=== PATIENT | male | born 1945 | race American Indian/Alaskan Native ===

== ENCOUNTER 2016-12-11 06:46 | Day surgery (SDC) | payer MEDICARE, BC ==
[2016-12-11 07:14] VITALS: BMI 26.6
[2016-12-11 08:10] LABS: CALCIUM 9.7 mg/dl (8.6-10.4)
[2016-12-11] MEDS ORDERED: Lidocaine Hydrochloride 5 ML INJ ONE (08:29)
[2016-12-11] MEDS ORDERED: Propofol 10 mg/ml Inj (20 ML) ONE (08:29)
[2016-12-11] MEDS ORDERED: Lactated Ringer's 500 ML IV SCH (08:30)
[2016-12-11] MEDS ORDERED: Lactated Ringer's 500 ML IV ONE ×2 (08:34)
[2016-12-11 09:09] VITALS: TEMP 98
[2016-12-11 09:16] VITALS: O2SAT 100
[2016-12-11 10:30] VITALS: BP 122/73; PULSE 62; RESP 18
== END 2016-12-11 10:00 | disposition home or self-care (01) ==
LOC: C.ENDO 06:46
PROVIDERS: ATTEND Internal Medicine Gastroenterology
DX: K29.80 Duodenitis without bleeding (principal); R13.10 Dysphagia, unspecified
CPT/HCPCS: 36415; 43239; 80048; 88305; J2704; J3010; J7120

== ENCOUNTER 2017-04-28 14:12 | Inpatient (IN) | payer MEDICARE, BC ==
[2017-04-28 14:12] VITALS: BMI 26.6
[2017-04-28] MEDS ORDERED: Lactated Ringer's 500 ML IV ONE (16:14)
--- NOTE | 2017-04-28 16:17 | C.PDOC ---
History Of Present Illness 71 y/o male presents to ED with complaints of weakness and dizziness. Patient states today he could not get up from bed secondary to feeling weak and dizzy. Patient was seen here 1 week ago for multiple falling episodes and was diagnosed with nose fracture. Patient reports he is not eating much secondary to trouble swallowing for history of dysphagia. As per family member he seems more weak than usual and having trouble ambulating. Time Seen by Provider: 04/28/17 15:57 Chief Complaint (Nursing): Weakness/Neurological Deficit History Per: Patient History/Exam Limitations: no limitations Onset/Duration Of Symptoms: Days Current Symptoms Are (Timing): Still Present Past Medical History Reviewed: Historical Data, Nursing Documentation, Vital Signs Vital Signs: Last Vital Signs Temp 98.2 F 04/28/17 14:51 Pulse 65 04/28/17 17:22 Resp 19 04/28/17 17:22 BP 124/78 04/28/17 17:22 Pulse Ox 100 04/28/17 18:20 - Medical History PMH: Anxiety (NO MED), Cardia Arrhythmia (BRADYCARDIA), Depression (NO MED), HTN , Hypercholesterolemia, Chronic Kidney Disease Surgical History: No Surg Hx - [facility] Procedures DIALYSIS ARTERIOVENOSTOM (11/03/13) HEMODIALYSIS (11/03/13) VENOUS CATHETERIZATION FOR RENAL DIALYSIS (11/03/13) Family History: States: No Known Family Hx - Social History Hx Tobacco Use: No Hx Alcohol Use: No Hx Substance Use: No - Immunization History Hx Tetanus Toxoid Vaccination: Yes Hx Influenza Vaccination: Yes Hx Pneumococcal Vaccination: No Review Of Systems Constitutional: Negative for: Fever, Chills Cardiovascular: Negative for: Chest Pain Respiratory: Negative for: Shortness of Breath Gastrointestinal: Negative for: Nausea, Vomiting Skin: Negative for: Rash Neurological: Positive for: Weakness, Dizziness. Negative for: Numbness, Headache Physical Exam - Physical Exam Appears: Non-toxic, No Acute Distress Skin: Warm, Dry, No Rash Head: Atraumatic, Normacephalic Eye(s): bilateral: Normal Inspection, EOMI Nose: Normal Oral Mucosa: Dry Neck: No Midline Cervical Tenderness, No Paracervical Tenderness, Supple, Other (minimal swelling to right side of neck) Chest: Symmetrical Cardiovascular: Rhythm Regular Respiratory: Normal Breath Sounds, No Rales, No Rhonchi, No Wheezing Gastrointestinal/Abdominal: Soft, No Tenderness Extremity: No Pedal Edema, Capillary Refill (<2 seconds), No Swelling, Other ( AV fistula to left arm ) Extremity: Bilateral: Normal Color And Temperature, Normal ROM Neurological/Psych: Oriented x3, Normal Speech, Normal Motor, Normal Sensation Gait: With Assistance (Cane) ED Course And Treatment - Laboratory Results Result Diagrams: 04/28/17 16:34 04/28/17 16:34 Lab Interpretation: Abnormal O2 Sat by Pulse Oximetry: 100 (RA) Pulse Ox Interpretation: Normal - CT Scan/US Head w/o contrast Other Rad Studies (CT/US): Read By Radiologist, Radiology Report Reviewed CT/US Interpretation: PROCEDURE: CT HEAD WITHOUT CONTRAST. HISTORY: dizziness. COMPARISON: 04/16/2017. TECHNIQUE: Axial computed tomography images were obtained through the head/brain without intravenous contrast. Radiation dose: Total exam DLP = 1357 mGy-cm. This CT exam was performed using one or more of the following dose reduction techniques: Automated exposure control, adjustment of the mA and/or kV according to patient size, and/ or use of iterative reconstruction technique. FINDINGS: HEMORRHAGE: No intracranial hemorrhage. BRAIN: No mass effect or edema. Chronic microvascular changes are seen. Moderate atrophy. VENTRICLES: Unremarkable. No hydrocephalus. CALVARIUM: Unremarkable. PARANASAL SINUSES: Unremarkable as visualized. No significant inflammatory changes. MASTOID AIR CELLS: Unremarkable as visualized. No inflammatory changes. OTHER FINDINGS: There is heavy vascular calcification of the basilar and carotid arteries. IMPRESSION: No acute findings Medical Decision Making Medical Decision Making: Impression: weakness Prior records reviewed: Patient seen in ED 04/16/17 after fall and had CT showing nasal fracture, no orbital fracture or ICH. Plan:CT head, Blood work, UA, ECG, CXR Progress: Labs consistent with CRF, anemia. CT head shows no acute findings. Patient unable to give urine. Discussed case with attending who recommends obs admission Patient reevaluated and remained unchanged, states he feels well at rest and uneasy when walking. Patient is at risk of falls at home and unsafe for discharge. Contact Dr Guthrie for obs-admission and he agrees. Consults placed for cardiology, neurology and neprho. Patient will need HD tomorrow. Also put for PT eval. Disposition - Disposition Disposition: HOSPITALIZED Disposition Time: 18:00 Condition: STABLE - POA Present On Arrival: None - Clinical Impression Clinical Impression: ESRD (end stage renal disease), Dizziness, Weakness - PA / SUBSTITUTE CROSSING GUARD / Resident Statement MD/DO has reviewed & agrees with the documentation as recorded. - Scribe Statement The provider has reviewed the documentation as recorded by the Viviana Warren All medical record entries made by the Viviana were at my direction and personally dictated by me. I have reviewed the chart and agree that the record accurately reflects my personal performance of the history, physical exam, medical decision making, and the department course for this patient. I have also personally directed, reviewed, and agree with the discharge instructions and disposition. Decision To Admit - Pt Status Changed To: Hospital Disposition Of: Observation - . Bed Request Type: Telemetry Admitting Physician: Kolby Guthrie Patient Diagnosis: ESRD (end stage renal disease), Dizziness, Weakness
[2017-04-28 16:40] LABS: BASO % 0.2 % (0.0-2.0); EOS # 0.1 K/uL (0.0-0.7); EOS % 1.7 % (0.0-4.0); LYMPH # 0.7 K/uL (1.0-4.3); LYMPH % 8.3 % (20.0-40.0); MEAN CORPUSCULAR HEMOGLOBIN 31.2 pg (27.0-31.0); MEAN CORPUSCULAR HGB CONC 33.1 g/dL (33.0-37.0); MEAN PLATELET VOLUME 6.5 fL (7.2-11.7); MONO # 0.7 K/uL (0.0-0.8); MONO % 8.3 % (0.0-10.0); PLATELET COUNT 249 K/uL (130-400); RED CELL DISTRIBUTION WIDTH 14.8 % (11.5-14.5)
[2017-04-28 16:44] LABS: MEAN CELL VOLUME 94.4 fL (80.0-94.0)
[2017-04-28 16:55] LABS: ALB/GLOB RATIO 1.4 (1.0-2.1); BILIRUBIN,TOTAL 0.8 mg/dL (0.2-1.3); CALCIUM 9.2 mg/dl (8.6-10.4); POTASSIUM 4.1 mmol/L (3.6-5.2); TOTAL PROTEIN 7.1 g/dL (6.3-8.3)
--- NOTE | 2017-04-28 16:59 | CT ---
PROCEDURE: CT HEAD WITHOUT CONTRAST. HISTORY: dizziness COMPARISON: 04/16/2017 TECHNIQUE: Axial computed tomography images were obtained through the head/brain without intravenous contrast. Radiation dose: Total exam DLP = 1357 mGy-cm. This CT exam was performed using one or more of the following dose reduction techniques: Automated exposure control, adjustment of the mA and/or kV according to patient size, and/or use of iterative reconstruction technique. FINDINGS: HEMORRHAGE: No intracranial hemorrhage. BRAIN: No mass effect or edema. Chronic microvascular changes are seen. Moderate atrophy VENTRICLES: Unremarkable. No hydrocephalus. CALVARIUM: Unremarkable. PARANASAL SINUSES: Unremarkable as visualized. No significant inflammatory changes. MASTOID AIR CELLS: Unremarkable as visualized. No inflammatory changes. OTHER FINDINGS: There is heavy vascular calcification of the basilar and carotid arteries IMPRESSION: No acute findings
[2017-04-28] MEDS ORDERED: Lactated Ringer's 1,000 ML ONE (17:02)
[2017-04-28 17:32] LABS: EOSINOPHIL 1 % (0-4); NEUTROPHIL 82 % (50-75); TOTAL CELLS COUNTED 100
--- NOTE | 2017-04-29 01:54 | CON ---
NEUROLOGY CONSULTATION REASON FOR CONSULTATION: Dizziness. HISTORY OF PRESENT ILLNESS: The patient is a 71-year-old male who has been asked for evaluation of dizziness and unsteady gait. The dizziness is described as lightheaded feeling. The patient said when this morning when he got up, he was dizzy and he fell down. The patient apparently has been falling at home and also had episode of passing out. The patient was in the hospital a week ago. The patient has been complaining of weakness allover the body. He denies any focal weakness in the arms or legs. REVIEW OF SYSTEMS: Denies any headache, positive for dizziness, positive for difficulty swallowing. Denies any chest pain, shortness of breath, abdominal pain, constipation, diarrhea, dysuria, cough, and sputum production. PAST MEDICAL HISTORY: Includes end-stage renal failure, on hemodialysis. MEDICATIONS: Included Renagel, Proscar, aspirin, cholecalciferol, Imdur. ALLERGIES: NO KNOWN DRUG ALLERGIES. SOCIAL HISTORY: He is an ex-smoker. Denies use of any alcohol or use of illicit drugs. FAMILY HISTORY: Reviewed and noncontributory to the case. PHYSICAL EXAMINATION: GENERAL: The patient is an elderly male sitting, in no acute distress. VITAL SIGNS: Blood pressure is 124/78, heart rate is 65 per minute, breathing at the rate of 16 per minute and temperature is 98.2 degrees Fahrenheit. HEENT: Head is normocephalic and atraumatic. NECK: Supple. There are no carotid bruits. LUNGS: Clear. CARDIOVASCULAR: S1 and S2 audible. No murmurs. ABDOMEN: Soft and nontender. Bowel sounds present. NEUROLOGY EXAMINATION: Mental status: The patient is awake, alert and oriented to time, place and person. Speech is fluent. Naming and repetition are normal. Memory and cognition are intact. Cranial nerve examination: Pupils are 3 mm bilaterally, reactive to light. Visual croft are full. Extraocular movements are intact. There is no facial asymmetry. Palate is upgoing bilaterally and tongue is midline. Motor examination: Tone is normal. Power is 4/5 bilaterally in all extremities. Reflexes are 1+ in upper extremity and absent in lower extremity. Plantars are downgoing bilaterally. Cerebellar examination: [id number] shows no dysmetria. Sensory examination: Decreased vibration sense . Gait is unsteady. LABORATORY DATA: Labs reviewed shows WBC of 8.0, hemoglobin 10.3, hematocrit of 31.0 and platelets of 249. INR is 1.0, sodium is 138, potassium 4.1, chloride 92, carbon dioxide content of 30, BUN of 31, creatinine of 6.3 and glucose of 88. He had a CT scan of the head done, which showed no acute intracranial abnormality. IMPRESSION: 1. Dizziness, possible labyrinthine dysfunction. 2. Gait dysfunction. 3. History of throat cancer. 4. End-stage renal disease, on hemodialysis. RECOMMENDATIONS: 1. The patient to have MRI of the brain without contrast. 2. The patient also to have an electroencephalogram. 3. The patient to have physical therapy for gait imbalance. 4. Please continue other treatment and supportive care. Thank you for the opportunity to participate in the care of this patient. Crispin Garzon MD
--- NOTE | 2017-04-29 08:44 | CP.PCM.HP ---
History of Present Illness - History of Present Illness History of Present Illness: 71 y/o male with HTN, ESRD on HD. Patient has been weak and had pass out at least 2. He was seen in ER and had sustain a Fx nose. Patient still weak and very unsteady. Patient has poor recall and denies any sudden one sideded weakness. Present on Admission - Present on Admission Any Indicators Present on Admission: Yes History of DVT/PE: No History of Uncontrolled Diabetes: No Urinary Catheter: No Decubitus Ulcer Present: No Review of Systems - Review of Systems Systems not reviewed;Unavailable: Dementia - Constitutional Constitutional: Anorexia. absent: Night Sweats - EENT Eyes: absent: Blurred Vision, Change in Vision, Itchy Eyes, Loss of Peripheral Vision Ears: Decreased Hearing, Disequilibrium, Dizziness. absent: Ear Discharge, Ear Pain Nose/Mouth/Throat: Dysphagia. absent: Nasal Congestion, Post Nasal Drip, Hoarsness - Cardiovascular Cardiovascular: absent: Chest Pain, Diaphoresis, Leg Edema, Radiating Pain - Respiratory Respiratory: Cough. absent: Hemoptysis, Dyspnea on Exertion, Snoring, Chest Congestion, Excessive Mucous Production - Gastrointestinal Gastrointestinal: absent: Abdominal Pain, Bloating, Diarrhea, Loose Stools, Nausea, Temesmus - Genitourinary Genitourinary: absent: Difficulty Urinating, Dysuria, Hematuria, Urinary Hesitance - Musculoskeletal Musculoskeletal: absent: Abnormal Gait, Back Pain, Joint Swelling, Muscle Weakness, Myalgias - Integumentary Integumentary: absent: Hirsutism, Rash, Swelling - Neurological Neurological: Abnormal Gait. absent: Confusion, Dizziness, Loss of Vision, Radicular Pain - Psychiatric Psychiatric: absent: Behavioral Changes, Confusion, Hopelessness, Panic Attacks Past Patient History - Past Medical History & Family History Past Medical History?: Yes - Past Social History Smoking Status: Former Smoker - CARDIAC Hx Cardia Arrhythmia: Yes (BRADYCARDIA) Hx Hypercholesterolemia: Yes Hx Hypertension: Yes - PULMONARY Hx Respiratory Disorders: No - NEUROLOGICAL Hx Neurological Disorder: No - HEENT Hx HEENT Problems: Yes Other/Comment: DIFFICULTY OF SWALLOWING - RENAL Hx Chronic Kidney Disease: Yes - ENDOCRINE/METABOLIC Hx Endocrine Disorders: No - HEMATOLOGICAL/ONCOLOGICAL Hx Blood Disorders: Yes Hx Cancer: Yes (THROAT SURGERY RADIATION) - INTEGUMENTARY Hx Dermatological Problems: No - MUSCULOSKELETAL/RHEUMATOLOGICAL Hx Musculoskeletal Disorders: No Hx Falls: Yes (numerous falls) - GASTROINTESTINAL Hx Gastrointestinal Disorders: No - GENITOURINARY/GYNECOLOGICAL Hx Genitourinary Disorders: No - PSYCHIATRIC Hx Anxiety: Yes (NO MED) Hx Depression: Yes (NO MED) Hx Substance Use: No - SURGICAL HISTORY Hx Arteriovenous Shunt: Yes Hx Herniorrhaphy: Yes Other/Comment: RT LYMPH NODE SURGERY - ANESTHESIA Hx Anesthesia: Yes Hx Anesthesia Reactions: No Hx Malignant Hyperthermia: No Meds Allergies/Adverse Reactions: Allergies Allergy/AdvReac Type Severity Reaction Status Date / Time No Known Allergies Allergy Verified 04/16/17 16:49 Physical Exam - Constitutional Appears: No Acute Distress - Head Exam Head Exam: NORMAL INSPECTION - Eye Exam Eye Exam: Normal appearance - ENT Exam ENT Exam: Mucous Membranes Moist - Neck Exam Neck exam: Positive for: Full Rom. Negative for: Lymphadenopathy, Thyromegaly - Respiratory Exam Respiratory Exam: Decreased Breath Sounds. absent: Rales, Rhonchi, Wheezes - Cardiovascular Exam Cardiovascular Exam: JVD, +S1, +S2, Systolic Murmur. absent: Gallop, REGULAR RHYTHM - GI/Abdominal Exam GI & Abdominal Exam: Soft. absent: Rigid, Tenderness - Extremities Exam Extremities exam: Positive for: full ROM, pedal pulses present ((+) AV shunt on left midarm). Negative for: calf tenderness, joint swelling, pedal edema Results - Vital Signs Recent Vital Signs: Last Vital Signs Temp 97.5 F L 04/29/17 08:14 Pulse 65 04/29/17 08:14 Resp 20 04/29/17 08:14 BP 145/85 04/29/17 08:14 Pulse Ox 97 04/29/17 08:14 - Labs Result Diagrams: 04/28/17 16:34 04/28/17 16:34 Labs: Laboratory Results - last 24 hr 04/28/17 04/28/17 04/28/17 15:51 16:34 16:34 WBC 8.0 RBC 3.29 L Hgb 10.3 L Hct 31.0 L MCV 94.4 H D MCH 31.2 H MCHC 33.1 RDW 14.8 H Plt Count 249 MPV 6.5 L Neut % (Auto) 81.5 H Lymph % (Auto) 8.3 L Ritchie % (Auto) 8.3 Eos % (Auto) 1.7 Baso % (Auto) 0.2 Neut # 6.5 Lymph # 0.7 L Ritchie # 0.7 Eos # 0.1 Baso # 0.0 Neutrophils % (Manual) 82 H Band Neutrophils % 1 Lymphocytes % (Manual) 8 L Monocytes % (Manual) 8 Eosinophils % (Manual) 1 Platelet Estimate Normal Hypochromasia (manual) Slight Poikilocytosis (manual Slight Anisocytosis (manual) Slight PT 10.8 INR 1.0 APTT 31 Sodium Potassium Chloride Carbon Dioxide Anion Gap BUN Creatinine Est GFR ( Amer) Est GFR (Non-Af Amer) POC Glucose (mg/dL) 82 Random Glucose Calcium Total Bilirubin AST ALT Alkaline Phosphatase Troponin I NT-Pro-B Natriuret Pep Total Protein Albumin Globulin Albumin/Globulin Ratio 04/28/17 04/28/17 16:34 19:00 WBC RBC Hgb Hct MCV MCH MCHC RDW Plt Count MPV Neut % (Auto) Lymph % (Auto) Ritchie % (Auto) Eos % (Auto) Baso % (Auto) Neut # Lymph # Ritchie # Eos # Baso # Neutrophils % (Manual) Band Neutrophils % Lymphocytes % (Manual) Monocytes % (Manual) Eosinophils % (Manual) Platelet Estimate Hypochromasia (manual) Poikilocytosis (manual Anisocytosis (manual) PT INR APTT Sodium 133 Potassium 4.1 Chloride 92 L Carbon Dioxide 30 Anion Gap 15 BUN 31 H Creatinine 6.3 H Est GFR ( Amer) 11 Est GFR (Non-Af Amer) 9 POC Glucose (mg/dL) Random Glucose 88 Calcium 9.2 Total Bilirubin 0.8 AST 18 ALT 22 Alkaline Phosphatase 50 Troponin I < 0.0120 NT-Pro-B Natriuret Pep 2110 H Total Protein 7.1 Albumin 4.1 Globulin 3.0 Albumin/Globulin Ratio 1.4 - EKG Data EKG Interpreted by: Myself EKG shows normal: Sinus rhythm Rate: Normal - EKG Data When Compared to Previous EKG: No Significant Change Assessment & Plan - Assessment and Plan (Free Text) Assessment: Syncope w/ Unsteady gait ESRD; Dysphagia For MRI Await Neuro eval & for Cardio eval Supportive care For physical therapy
--- NOTE | 2017-04-29 09:14 | CP.PCM.CON ---
History of Present Illness - History of Present Illness History of Present Illness: I was asked to evaluate patient by Dr Guthrie. Patient is a 71 year old male with PMH HTN, hypercholeterolemia ESRD on HD who presents with fall. Patient has a history of single vessel CAD treated medically, who states he had a fall. he does not remember the exact details of his fall. he denies chest brown or dyspnea. He has had dysphagia, and has poor oral intake. Review of Systems - Constitutional Constitutional: Weakness - EENT Eyes: absent: As Per HPI, Blind Spots, Blurred Vision, Change in Vision, Decreased Night Vision, Diplopia, Discharge, Dry Eye, Exophthalmos, Floaters, Irritation, Itchy Eyes, Loss of Peripheral Vision, Pain, Photophobia, Requires Corrective Lenses, Sees Flashes, Spots in Vision, Tunnel Vision, Other Visual Disturbances, Loss of Vision, Other Ears: absent: As Per HPI, Decreased Hearing, Ear Discharge, Ear Pain, Tinnitus, Abnormal Hearing, Disequilibrium, Dizziness, Other Nose/Mouth/Throat: Dysphagia - Cardiovascular Cardiovascular: absent: As Per HPI, Acrocyanosis, Chest Pain, Chest Pain at Rest , Chest Pain with Activity, Claudication, Diaphoresis, Dyspnea, Dyspnea on Exertion, Edema, Irregular Heart Rhythm, Pain Radiating to Arm/Neck/Jaw, Leg Edema, Leg Ulcers, Lightheadedness, Orthopnea, Palpitations, Paroxysmal Nocturnal Dyspnea, Pedal Edema, Radiating Pain, Rapid Heart Rate, Slow Heart Rate, Syncope, Other - Respiratory Respiratory: absent: As Per HPI, Cough, Dyspnea, Hemoptysis, Dyspnea on Exertion , Wheezing, Snoring, Stridor, Pain on Inspiration, Chest Congestion, Excessive Mucous Production, Change in Mucous Color, Pain with Coughing, Other - Gastrointestinal Gastrointestinal: absent: As Per HPI, Abdominal Pain, Belching, Bloating, Change in Bowel Habits, Change in Stool Character, Coffee Ground Emesis, Constipation, Cramping, Diarrhea, Dyspepsia, Dysphagia, Early Satiety, Excessive Flatus, Fecal Incontinence, Heartburn, Hematemesis, Hematochezia, Loose Stools, Melena, Nausea, Odynophagia, Temesmus, Vomiting, Other - Genitourinary Genitourinary: absent: As Per HPI, Change in Urinary Stream, Difficulty Urinating, Dysuria, Flank Pain, Hematuria, Pyuria, Nocturia, Urinary Incontinence, Urinary Frequency, Urinary Hesitance, Urinary Urgency, Voiding Freq/Small Amts, Freq UTI, Hx Renal/Bladder Calculi, Hx /Renal Surgery, Bladder Distension, Other - Musculoskeletal Musculoskeletal: absent: As Per HPI, Abnormal Gait, Arthralgias, Atrophy, Back Pain, Deformity, Joint Swelling, Limited Range of Motion, Loss of Height, Muscle Cramps, Muscle Weakness, Myalgias, Neck Pain, Numbness, Radiating Pain into Limb, Stiffness, Tingling, Other - Integumentary Integumentary: absent: As Per HPI, Acne, Alopecia, Bleeding Lesions, Change in Hair, Change in Nails, Change in Pigmentation, Changing Lesions, Dry Skin, Erythema, Furuncle, Hirsutism, Lesions, New Lesions, Non-Healing Lesions, Photosensitivity, Pruritus, Rash, Skin Pain, Skin Ulcer, Sores, Striae, Swelling , Unusual Bruising, Wounds, Jaundice, Other - Neurological Neurological: absent: As Per HPI, Abnormal Gait, Abnormal Hearing, Abnormal Movements, Abnormal Speech, Behavioral Changes, Burning Sensations, Confusion, Convulsions, Disequilibrium, Dizziness, Numbness, Focal Weakness, Frequent Falls , Headaches, Lack of Coordination, Loss of Vision, Memory Loss, Paresthesias, Radicular Pain, Restless Legs, Sensory Deficit, Syncope, Tingling, Tremor, Vertigo, Weakness, Other Visual Disturbances, Other - Psychiatric Psychiatric: absent: As Per HPI, Abnormal Sleep Pattern, Anhedonia, Anxiety, Auditory Hallucinations, Behavioral Changes, Change in Appetite, Change in Libido, Confusion, Depression, Difficulty Concentrating, Hallucinations, Homicidal Ideation, Hopelessness, Irritability, Memory Loss, Mood Swings, Panic Attacks, Paranoia, Suicidal Ideation, Visual Hallucinations, Tactile Hallucinations, Other - Endocrine Endocrine: absent: As Per HPI, Change in Body Appearance, Change in Libido, Cold Intolorance, Deepening of Voice, Excessive Sweating, Fatigue, Flushing, Heat Intolorance, Increase in Ring/Shoe/Hat Size, Palpitations, Polydipsia, Polyphagia, Polyuria, Other - Hematologic/Lymphatic Hematologic: absent: As Per HPI, Easy Bleeding, Easy Bruising, Lymphadenopathy, Other Past Patient History - Past Medical History & Family History Past Medical History?: Yes - Past Social History Smoking Status: Former Smoker - CARDIAC Hx Cardia Arrhythmia: Yes (BRADYCARDIA) Hx Hypercholesterolemia: Yes Hx Hypertension: Yes - PULMONARY Hx Respiratory Disorders: No - NEUROLOGICAL Hx Neurological Disorder: No - HEENT Hx HEENT Problems: Yes Other/Comment: DIFFICULTY OF SWALLOWING - RENAL Hx Chronic Kidney Disease: Yes - ENDOCRINE/METABOLIC Hx Endocrine Disorders: No - HEMATOLOGICAL/ONCOLOGICAL Hx Blood Disorders: Yes Hx Cancer: Yes (THROAT SURGERY RADIATION) - INTEGUMENTARY Hx Dermatological Problems: No - MUSCULOSKELETAL/RHEUMATOLOGICAL Hx Musculoskeletal Disorders: No Hx Falls: Yes (numerous falls) - GASTROINTESTINAL Hx Gastrointestinal Disorders: No - GENITOURINARY/GYNECOLOGICAL Hx Genitourinary Disorders: No - PSYCHIATRIC Hx Anxiety: Yes (NO MED) Hx Depression: Yes (NO MED) Hx Substance Use: No - SURGICAL HISTORY Hx Arteriovenous Shunt: Yes Hx Herniorrhaphy: Yes Other/Comment: RT LYMPH NODE SURGERY - ANESTHESIA Hx Anesthesia: Yes Hx Anesthesia Reactions: No Hx Malignant Hyperthermia: No Meds Allergies/Adverse Reactions: Allergies Allergy/AdvReac Type Severity Reaction Status Date / Time No Known Allergies Allergy Verified 04/16/17 16:49 - Medications Medications: Current Medications Aspirin (Ecotrin) 81 mg PO DAILY DAGMAR Finasteride (Proscar) 5 mg PO DAILY DAGMAR Isosorbide Mononitrate (Imdur) 60 mg PO DAILY DAGMAR Physical Exam - Constitutional Appears: Chronically Ill - Head Exam Head Exam: NORMAL INSPECTION - Eye Exam Eye Exam: Normal appearance - ENT Exam ENT Exam: Mucous Membranes Dry - Neck Exam Neck exam: Positive for: Normal Inspection - Respiratory Exam Respiratory Exam: NORMAL BREATHING PATTERN - Cardiovascular Exam Cardiovascular Exam: REGULAR RHYTHM - GI/Abdominal Exam GI & Abdominal Exam: Normal Bowel Sounds - Rectal Exam Rectal Exam: Deferred - Extremities Exam Extremities exam: Negative for: pedal edema - Back Exam Back exam: NORMAL INSPECTION - Neurological Exam Neurological exam: Alert, Oriented x3 - Psychiatric Exam Psychiatric exam: Normal Affect - Skin Skin Exam: Normal Color Results - Vital Signs Recent Vital Signs: Last Vital Signs Temp 97.5 F L 04/29/17 08:14 Pulse 65 04/29/17 08:14 Resp 20 04/29/17 08:14 BP 145/85 04/29/17 08:14 Pulse Ox 97 04/29/17 08:14 - Labs Result Diagrams: 04/28/17 16:34 04/28/17 16:34 Labs: Laboratory Results - last 24 hr 04/28/17 04/28/1704/28/17 15:51 16:34 16:34 WBC 8.0 RBC 3.29 L Hgb 10.3 L Hct 31.0 L MCV 94.4 H D MCH 31.2 H MCHC 33.1 RDW 14.8 H Plt Count 249 MPV 6.5 L Neut % (Auto) 81.5 H Lymph % (Auto) 8.3 L [place] % (Auto) 8.3 Eos % (Auto) 1.7 Baso % (Auto) 0.2 Neut # 6.5 Lymph # 0.7 L [place] # 0.7 Eos # 0.1 Baso # 0.0 Neutrophils % (Manual) 82 H Band Neutrophils % 1 Lymphocytes % (Manual) 8 L Monocytes % (Manual) 8 Eosinophils % (Manual) 1 Platelet Estimate Normal Hypochromasia (manual) Slight Poikilocytosis (manual Slight Anisocytosis (manual) Slight PT 10.8 INR 1.0 APTT 31 Sodium Potassium Chloride Carbon Dioxide Anion Gap BUN Creatinine Est GFR ( Amer) Est GFR (Non-Af Amer) POC Glucose (mg/dL) 82 Random Glucose Calcium Total Bilirubin AST ALT Alkaline Phosphatase Troponin I NT-Pro-B Natriuret Pep Total Protein Albumin Globulin Albumin/Globulin Ratio 04/28/17 04/28/17 16:34 19:00 WBC RBC Hgb Hct MCV MCH MCHC RDW Plt Count MPV Neut % (Auto) Lymph % (Auto) [place] % (Auto) Eos % (Auto) Baso % (Auto) Neut # Lymph # [place] # Eos # Baso # Neutrophils % (Manual) Band Neutrophils % Lymphocytes % (Manual) Monocytes % (Manual) Eosinophils % (Manual) Platelet Estimate Hypochromasia (manual) Poikilocytosis (manual Anisocytosis (manual) PT INR APTT Sodium 133 Potassium 4.1 Chloride 92 L Carbon Dioxide 30 Anion Gap 15 BUN 31 H Creatinine 6.3 H Est GFR ( Amer) 11 Est GFR (Non-Af Amer) 9 POC Glucose (mg/dL) Random Glucose 88 Calcium 9.2 Total Bilirubin 0.8 AST 18 ALT 22 Alkaline Phosphatase 50 Troponin I < 0.0120 NT-Pro-B Natriuret Pep 2110 H Total Protein 7.1 Albumin 4.1 Globulin 3.0 Albumin/Globulin Ratio 1.4 - EKG Data EKG Interpreted by: Myself EKG shows normal: Sinus rhythm Assessment & Plan (1) Dizziness Assessment and Plan: etiology is unclear. recommend monitor on telemetry. will check echocardiogram to assess LV function. Status: Acute (2) ESRD (end stage renal disease) Assessment and Plan: renal following Status: Acute (3) Hypertension Assessment and Plan: will monitor. Status: Acute
--- NOTE | 2017-04-29 09:16 | RAD ---
HISTORY: Shortness of breath COMPARISON: No prior. TECHNIQUE: Chest PA and lateral FINDINGS: LUNGS: Biapical pleural thickening with upper lobe granulomatous changes. Mild venous congestion. Bibasilar breast and nipple shadows. PLEURA: No significant pleural effusion identified. No pneumothorax apparent. CARDIOVASCULAR: Tortuous ectatic prominent aorta. OSSEOUS STRUCTURES: Degenerative changes in the spine. VISUALIZED UPPER ABDOMEN: Normal. OTHER FINDINGS: None. IMPRESSION: Biapical pleural thickening with upper lobe granulomatous changes. Mild venous congestion. Bibasilar breast and nipple shadows. Tortuous ectatic prominent aorta.
--- NOTE | 2017-04-29 10:11 | CP.PCM.CON ---
History of Present Illness - History of Present Illness History of Present Illness: pt is seen and examined, follow up consult is dictated #[id number] for hd in am Past Patient History - Past Medical History & Family History Past Medical History?: Yes - Past Social History Smoking Status: Former Smoker - CARDIAC Hx Cardia Arrhythmia: Yes (BRADYCARDIA) Hx Hypercholesterolemia: Yes Hx Hypertension: Yes - PULMONARY Hx Respiratory Disorders: No - NEUROLOGICAL Hx Neurological Disorder: No - HEENT Hx HEENT Problems: Yes Other/Comment: DIFFICULTY OF SWALLOWING - RENAL Hx Chronic Kidney Disease: Yes - ENDOCRINE/METABOLIC Hx Endocrine Disorders: No - HEMATOLOGICAL/ONCOLOGICAL Hx Blood Disorders: Yes Hx Cancer: Yes (THROAT SURGERY RADIATION) - INTEGUMENTARY Hx Dermatological Problems: No - MUSCULOSKELETAL/RHEUMATOLOGICAL Hx Musculoskeletal Disorders: No Hx Falls: Yes (numerous falls) - GASTROINTESTINAL Hx Gastrointestinal Disorders: No - GENITOURINARY/GYNECOLOGICAL Hx Genitourinary Disorders: No - PSYCHIATRIC Hx Anxiety: Yes (NO MED) Hx Depression: Yes (NO MED) Hx Substance Use: No - SURGICAL HISTORY Hx Arteriovenous Shunt: Yes Hx Herniorrhaphy: Yes Other/Comment: RT LYMPH NODE SURGERY - ANESTHESIA Hx Anesthesia: Yes Hx Anesthesia Reactions: No Hx Malignant Hyperthermia: No Meds Allergies/Adverse Reactions: Allergies Allergy/AdvReac Type Severity Reaction Status Date / Time No Known Allergies Allergy Verified 04/16/17 16:49 - Medications Medications: Current Medications Aspirin (Ecotrin) 81 mg PO DAILY DAGMAR Finasteride (Proscar) 5 mg PO DAILY DAGMAR Isosorbide Mononitrate (Imdur) 60 mg PO DAILY DAGMAR Results - Vital Signs Recent Vital Signs: Last Vital Signs Temp 97.5 F L 04/29/17 08:14 Pulse 65 04/29/17 08:14 Resp 20 04/29/17 08:14 BP 145/85 04/29/17 08:14 Pulse Ox 97 04/29/17 08:14 - Labs Result Diagrams: 04/28/17 16:34 04/28/17 16:34 Labs: Laboratory Results - last 24 hr 04/28/17 04/28/17 04/28/17 15:51 16:34 16:34 WBC 8.0 RBC 3.29 L Hgb 10.3 L Hct 31.0 L MCV 94.4 H D MCH 31.2 H MCHC 33.1 RDW 14.8 H Plt Count 249 MPV 6.5 L Neut % (Auto) 81.5 H Lymph % (Auto) 8.3 L [place] % (Auto) 8.3 Eos % (Auto) 1.7 Baso % (Auto) 0.2 Neut # 6.5 Lymph # 0.7 L [place] # 0.7 Eos # 0.1 Baso # 0.0 Neutrophils % (Manual) 82 H Band Neutrophils % 1 Lymphocytes % (Manual) 8 L Monocytes % (Manual) 8 Eosinophils % (Manual) 1 Platelet Estimate Normal Hypochromasia (manual) Slight Poikilocytosis (manual Slight Anisocytosis (manual) Slight PT 10.8 INR 1.0 APTT 31 Sodium Potassium Chloride Carbon Dioxide Anion Gap BUN Creatinine Est GFR ( Amer) Est GFR (Non-Af Amer) POC Glucose (mg/dL) 82 Random Glucose Calcium Total Bilirubin AST ALT Alkaline Phosphatase Troponin I NT-Pro-B Natriuret Pep Total Protein Albumin Globulin Albumin/Globulin Ratio 04/28/17 04/28/17 16:34 19:00 WBC RBC Hgb Hct MCV MCH MCHC RDW Plt Count MPV Neut % (Auto) Lymph % (Auto) [place] % (Auto) Eos % (Auto) Baso % (Auto) Neut # Lymph # [place] # Eos # Baso # Neutrophils % (Manual) Band Neutrophils % Lymphocytes % (Manual) Monocytes % (Manual) Eosinophils % (Manual) Platelet Estimate Hypochromasia (manual) Poikilocytosis (manual Anisocytosis (manual) PT INR APTT Sodium 133 Potassium 4.1 Chloride 92 L Carbon Dioxide 30 Anion Gap 15 BUN 31 H Creatinine 6.3 H Est GFR ( Amer) 11 Est GFR (Non-Af Amer) 9 POC Glucose (mg/dL) Random Glucose 88 Calcium 9.2 Total Bilirubin 0.8 AST 18 ALT 22 Alkaline Phosphatase 50 Troponin I < 0.0120 NT-Pro-B Natriuret Pep 2110 H Total Protein 7.1 Albumin 4.1 Globulin 3.0 Albumin/Globulin Ratio 1.4
[2017-04-29] MEDS ORDERED: EPOETIN ALFA 4,000 UNIT/ML ML Dialysis IV SCH (10:30)
[2017-04-29] MEDS: Paricalcitol 2 mcg/ml Inj IV ONE ×2 (10:54→10:59)
--- NOTE | 2017-04-29 11:29 | MRI ---
PROCEDURE: MRI BRAIN WITHOUT CONTRAST HISTORY: dizziness COMPARISON: Unenhanced head CT 04/28/2017. TECHNIQUE: Multiplanar, multisequence MR images of the brain were obtained without intravenous contrast enhancement. FINDINGS: As in the prior head CT, motion artifacts distort current examination as well. HEMORRHAGE: None DWI: No evidence of an acute or early subacute infarction. BRAIN PARENCHYMA: Diffuse cerebral atrophy and chronic microangiopathy are reiterated. No mass is identified or suspicious extra-axial fluid collection in the midline brain and appears diffusely unremarkable nevertheless. Bilateral basilar ganglia and dilated perivascular spaces are seen once again with underlying chronic lacunes not excluded. Posterior fossa contents remain grossly unremarkable including the brainstem. VENTRICLES: Unremarkable. No hydrocephalus. CRANIUM: Unremarkable. ORBITS: Grossly unremarkable. PARANASAL SINUSES/MASTOIDS: Mucosal inflammatory changes affect the right maxillary sinus and a few ethmoid air cells bilaterally. VASCULAR SYSTEM: Skull base flow voids intact. OTHER FINDINGS: None. IMPRESSION: 1. No acute or subacute brain infarction appreciable. No definitive intracranial hemorrhage identified at this time either. No mass-effect. 2. Reiteration of age related neuro degenerative change are identified. Bilateral basilar ganglia and dilated perivascular spaces are seen once again with underlying chronic lacunes not excluded.
--- NOTE | 2017-04-29 16:35 | CARD ---
APPROVED REPORT EXAM: Two-dimensional and M-mode echocardiogram with Doppler and color Doppler. Other Information Quality : GoodRhythm : Atrial Fibrillation INDICATION Congestive Heart Failure COPD RISK FACTORS Diabetes 2D DIMENSIONS IVSd0.8 (0.7-1.1cm)LVDd5.9 (3.9-5.9cm) PWd1.0 (0.7-1.1cm)LVDs4.3 (2.5-4.0cm) FS (%) 26.9 %LVEF (%)60.0 (>50%) M-Mode DIMENSIONS RVDd0.90 (2.1-3.2cm)Left Atrium (MM)4.90 (2.5-4.0cm) IVSd0.82 (0.7-1.1cm)Aortic Root3.93 (2.2-3.7cm) LVDd6.48 (4.0-5.6cm)Aortic Cusp Exc.2.45 (1.5-2.0cm) PWd1.13 (0.7-1.1cm)FS (%) 33 % LVDs4.33 (2.0-3.8cm)LVEF (%)61 (>50%) Aortic Valve AoV Peak Igpiwcpb879.3cm/sAoV VTI42.9cmAO Peak GR.16mmHg AO Mean GR.8mmHgAI P 1/2 [id number] Mitral Valve MV E Fepusvpp82.0cm/sMV A Lobqjdgt149.7cm/sE/A ratio0.7 TDI E/Lateral E'0.0E/Medial E'0.0 Tricuspid Valve TR Peak Njpfhdgm112ih/sTR Peak Gr.46yvXfVFCY56wsRc LEFT VENTRICLE The Left Ventricle is mildly dilated. There is normal left ventricular wall thickness. The left ventricular systolic function is normal. The left ventricular ejection fraction is within the normal range. There is normal LV segmental wall motion. Transmitral Doppler flow pattern is Grade I-abnormal relaxation pattern. RIGHT VENTRICLE The right ventricle is borderline dilated. The right ventricular systolic function is normal. ATRIA The left atrium is mildly dilated. The right atrium is mildly dilated. AORTIC VALVE The aortic valve is normal in structure. There is trace to mild aortic regurgitation. MITRAL VALVE The mitral valve is normal in structure. Mitral regurgitation is trace. TRICUSPID VALVE The tricuspid valve is normal in structure. There is mild tricuspid regurgitation. Right ventricular systolic pressure is estimated at 33 mmHg. PULMONIC VALVE The pulmonary valve is normal in structure. There is mild pulmonic valvular regurgitation. GREAT VESSELS The aortic root is borderline enlarged. The IVC is normal in size and collapses >50% with inspiration. PERICARDIAL EFFUSION There is no pericardial effusion. <Conclusion> The left ventricle is mildly dilated. The left ventricular systolic function is normal. There is normal LV segmental wall motion. Transmitral Doppler flow pattern is Grade I-abnormal relaxation pattern. The right ventricular systolic function is normal. Mild bi-atrial enlargement. There is trace to mild aortic regurgitation. There is mild tricuspid regurgitation. Right ventricular systolic pressure is estimated at 33 mmHg. There is mild pulmonic valvular regurgitation. The aortic root is borderline enlarged. There is no pericardial effusion.
--- NOTE | 2017-04-29 18:56 | CARD ---
APPROVED REPORT EKG Measurement Heart [id number] <Conclusion> Normal sinus rhythm with sinus arrhythmia Prolonged QT Abnormal ECG
--- NOTE | 2017-04-30 03:46 | CON ---
DATE:04/29/2017 RENAL CONSULTATION LOCATION: The patient is located in room #565, bed B. REQUESTED BY: Kolby Guthrie MD REASON FOR FOLLOWUP: End-stage renal disease for continuation of the hemodialysis. HISTORY OF PRESENT ILLNESS: Mr. Franks is a 71-year-old elderly -[place] male, very pleasant with chief complaints of cardiac arrhythmias, bradycardia, and depression, on no medication. Hypertension, hyperlipidemia, end-stage renal disease, and history of throat cancer, status post surgery, questionable in the past, who recently came to the emergency room about a week ago after he felt dizzy and had a contusion to his forehead and found to have nose fracture, and the patient was discharged home and referred to the ENT. As a note, the patient was dialyzed on Friday due to holiday schedule and the patient was admitted yesterday through the emergency room with chief complaints of feeling weak and dizzy and could not get up from the bed secondary to feeling weak and dizzy. The patient has a history of fall about a week ago and had nose fracture. As per the patient's family, he does not eat much due to trouble swallowing due to dysphagia from the throat cancer. As per the patient's family, he is more weaker than usual, having trouble in ambulating recently. PAST MEDICAL HISTORY: Significant for anxiety, cardiac arrhythmia, bradycardia, depression, hypertension, hypercholesterolemia, end-stage renal disease, and throat cancer. PAST SURGICAL HISTORY: He is status post surgery for throat cancer and also questionable radiation treatment, status post left upper extremity AV fistula. ALLERGIES: NO KNOWN DRUG ALLERGIES. SOCIAL HISTORY: No smoking, no alcohol, no drug abuse. FAMILY HISTORY: Not significant. CURRENT MEDICATIONS: Include as follows, aspirin 81 mg p.o. daily, Imdur 60 mg p.o. daily, Mucinex 600 mg p.o. daily, Procrit 4000 units 3 times a week, Proscar 5 mg p.o. daily, and Zemplar 2 mcg 3 times a week. HOME MEDICATIONS: Include Renvela, omega-3, fatty acid, Ashley-John, Imdur, garlic, Proscar, vitamin D, and aspirin. REVIEW OF SYSTEMS: Significant for feeling weak, dizzy, decreased p.o. intake, and status post fall 1 week ago with nose fracture. All other review of systems are reviewed as per HPI. PHYSICAL EXAMINATION: VITAL SIGNS: Blood pressure 145/85, pulse 65, respirations 20, temperature 97.5, saturation 97%. Height 5 feet 11 inches and weight is 175 pounds. GENERAL: Mr. Franks is a 71-year-old elderly, very pleasant -[place] male, moderately-built, moderately-nourished, not in distress. HEENT: Pupils normal, reactive to light and accommodation. Conjunctivae pink. Sclerae anicteric. The patient has slight swelling at the bridge of the nose and the forehead. Mild tenderness present. Tongue is moist. Trachea is midline. LUNGS: Symmetric on both sides. Bilateral breath sounds present. Clear on auscultation. CARDIOVASCULAR SYSTEM: [place] at the fifth intercostal space, midclavicular line. S1 and S2 audible. No murmur. ABDOMEN: Normal in appearance, soft, tympanic. No guarding, no rigidity. No hepatosplenomegaly. CENTRAL NERVOUS SYSTEM: The patient is alert, awake, oriented x3. Nonfocal neuro examination. Cranial nerves II through XII grossly intact. Sensory and motor system is within normal limits. EXTREMITIES: No cyanosis, no clubbing, no edema. LABORATORY DATA: On admission as of 04/28/2017, WBC 8, hemoglobin 10.3, hematocrit is 31, platelets 249. Sodium 133, potassium 4.1, chloride 92, CO2 of 30, BUN 31, creatinine 6.3, glucose 88, calcium 9.2. Total bili 0.8, AST 18, ALT 22, alkaline phosphatase 50. Troponin 0.012 and pro-BNP 2110. Total protein 7.1, albumin 4.1. Chest x-ray as of 04/28/2017, biapical pleural thickening with upper lobe granulomatous changes, mild venous congestion, bibasilar breast and nipple shadows and tortuous ectatic prominent aorta. CT of the head as of 04/28/2017, no acute findings. MRI of the brain is pending. ASSESSMENT: In summary, Mr. Franks is a 71-year-old elderly -[place] male with hypertension, depression, throat cancer, end-stage renal disease, status post fall with fracture of the nose about a week ago, was admitted, feeling weak, dizzy, and unable to get out of the bed, status post hemodialysis on Friday. 1. End-stage renal disease, continue hemodialysis 3 times a week, Friday, Friday and Friday. 2. Hypertension, blood pressure stable. 3. Status post fall with nosebleed. Continue to monitor his blood pressure and consider physical therapy evaluation and the patient may benefit from the rehab placement for gait training and ambulation. We will schedule for hemodialysis in the a.m. and follow with Neurology for further management for evaluation. Thank you for allowing me to participate in your patient's care and for HD in the a.m. Akshat Pak MD MTDD
--- NOTE | 2017-04-30 05:11 | EEG ---
ELECTROENCEPHALOGRAM REPORT DATE: INTRODUCTION: This is a digitally recorded EEG monitoring using standard EEG montages. BACKGROUND RHYTHM: The EEG shows a background activity of 8 Hz alpha activity in parietooccipital region. The EEG activity is bilaterally symmetrical and synchronous. There is attenuation of the background activity on eye opening. Moderate amount of myogenic artifact noticed in this EEG recording. ABNORMAL POTENTIALS: No spike, sharp waves or focal slowing was seen. PHOTIC STIMULATION AND HYPERVENTILATION: Photic stimulation did not reveal any abnormality. Hyperventilation was not performed. IMPRESSION: Normal electroencephalogram. No epileptiform activity seen in this electroencephalogram recording. Crispin Garzon MD
--- NOTE | 2017-04-30 07:06 | CP.PCM.PN ---
Subjective - Date & Time of Evaluation Date of Evaluation: 04/30/17 Time of Evaluation: 06:50 - Subjective Subjective: patient is asleep but easily arousable. denies chest pain Objective - Vital Signs/Intake and Output Vital Signs (last 24 hours): Temp Pulse Resp BP Pulse Ox 98 F 71 20 149/82 98 04/29/17 23:25 04/29/17 23:25 04/29/17 23:25 04/29/17 23:25 04/29/17 23:25 - Medications Medications: Current Medications Aspirin (Ecotrin) 81 mg PO DAILY [facility] Last Admin: 04/29/17 10:56 Dose: 81 mg Epoetin Neville (Procrit) 4,000 unit IV [facility] Finasteride (Proscar) 5 mg PO DAILY [facility] Last Admin: 04/29/17 10:55 Dose: 5 mg Guaifenesin (Mucinex La) 600 mg PO DAILY [facility] Isosorbide Mononitrate (Imdur) 60 mg PO DAILY [facility] Last Admin: 04/29/17 10:55 Dose: 60 mg Paricalcitol (Zemplar) 2 mcg IV [facility] - Labs Labs: 04/28/17 16:34 04/28/17 16:34 PT 10.8 SECONDS (9.7-12.2) 04/28/17 16:34 INR 1.0 04/28/17 16:34 APTT 31 SECONDS (21-34) 04/28/17 16:34 - Constitutional Appears: Chronically Ill - Head Exam Head Exam: NORMAL INSPECTION - Eye Exam Eye Exam: Normal appearance - ENT Exam ENT Exam: Mucous Membranes Dry - Neck Exam Neck Exam: Full ROM - Respiratory Exam Respiratory Exam: NORMAL BREATHING PATTERN - Cardiovascular Exam Cardiovascular Exam: REGULAR RHYTHM - GI/Abdominal Exam GI & Abdominal Exam: Normal Bowel Sounds - Rectal Exam Rectal Exam: Deferred - Extremities Exam Extremities Exam: absent: Pedal Edema - Back Exam Back Exam: NORMAL INSPECTION - Neurological Exam Neurological Exam: Alert - Psychiatric Exam Psychiatric exam: Normal Affect - Skin Skin Exam: Normal Color Assessment and Plan (1) Dizziness Assessment & Plan: I reviewed the echocardiogram. Left ventricular function is normal. Patient has no events on telemetry. can consider [facility] outpatient event monitor. Status: Acute (2) ESRD (end stage renal disease) Status: Acute (3) Hypertension Assessment & Plan: adjust therapy Status: Acute
[2017-04-30] MEDS: EPOETIN ALFA 4,000 UNIT/ML ML Dialysis IV SCH (09:00)
--- NOTE | 2017-04-30 09:03 | CP.PCM.PN ---
Subjective - Date & Time of Evaluation Date of Evaluation: 04/30/17 Time of Evaluation: 08:35 - Subjective Subjective: Patient no complain; Still unsteady w/ gait States seen c/o phy therapy No CP, no SOB, no edema, (+) dry cough Objective - Vital Signs/Intake and Output Vital Signs (last 24 hours): Temp Pulse Resp BP Pulse Ox 97.7 F 76 20 138/80 100 04/30/17 08:27 04/30/17 08:27 04/30/17 08:27 04/30/17 08:27 04/30/17 08:27 - Medications Medications: Current Medications Aspirin (Ecotrin) 81 mg PO DAILY [facility] Last Admin: 04/29/17 10:56 Dose: 81 mg Carvedilol (Coreg) 6.25 mg PO BID [facility] Epoetin Neville (Procrit) 4,000 unit IV MWF [facility] Finasteride (Proscar) 5 mg PO DAILY [facility] Last Admin: 04/29/17 10:55 Dose: 5 mg Guaifenesin (Mucinex La) 600 mg PO DAILY [facility] Isosorbide Mononitrate (Imdur) 60 mg PO DAILY [facility] Last Admin: 04/29/17 10:55 Dose: 60 mg Paricalcitol (Zemplar) 2 mcg IV MWF [facility] - Labs Labs: 04/28/17 16:34 04/28/17 16:34 PT 10.8 SECONDS (9.7-12.2) 04/28/17 16:34 INR 1.0 04/28/17 16:34 APTT 31 SECONDS (21-34) 04/28/17 16:34 - Constitutional Appears: No Acute Distress - ENT Exam ENT Exam: absent: Mucous Membranes Moist - Neck Exam Neck Exam: Full ROM. absent: Meningismus, Thyromegaly - Respiratory Exam Respiratory Exam: Decreased Breath Sounds, Rhonchi. absent: Rales, Wheezes - Cardiovascular Exam Cardiovascular Exam: JVD, +S1, +S2, Murmur. absent: Gallop, REGULAR RHYTHM - GI/Abdominal Exam GI & Abdominal Exam: Soft. absent: Tenderness, Mass - Extremities Exam Extremities Exam: Normal Capillary Refill. absent: Calf Tenderness, Joint Swelling, Pedal Edema Assessment and Plan - Assessment and Plan (Free Text) Assessment: Unsteady Gair; syncope w/ recent nasal fracture ESRD; HTN Bronchitis vs COPD Bronchodilator an add Coreg w/ BP med Supportive care Candidate for subacute rehab for fall prevention
[2017-04-30] MEDS: Paricalcitol 2 mcg/ml Inj IV SCH (09:14)
[2017-04-30] MEDS: guaiFENesin 600 mg ER Tab PO SCH (09:14)
[2017-04-30] MEDS: Paricalcitol 2 mcg/ml Inj IV ONE (10:30)
[2017-04-30] MEDS: Albuterol-Ipratrop 3 mg / 0.5 (3 ml) UD INH SCH ×3 (12:58→20:25)
--- NOTE | 2017-04-30 18:03 | CP.PCM.PN ---
Subjective - Date & Time of Evaluation Date of Evaluation: 04/30/17 Time of Evaluation: 18:03 - Subjective Subjective: pt is seen and examined, follow up consult is dictated #[id number] s/p hd today, uf 2 lit, no complications Objective - Vital Signs/Intake and Output Vital Signs (last 24 hours): Temp Pulse Resp BP Pulse Ox 98 F 74 20 148/97 H 97 04/30/17 14:00 04/30/17 14:00 04/30/17 14:00 04/30/17 14:00 04/30/17 14:00 - Medications Medications: Current Medications Albuterol/Ipratropium (Duoneb 3 Mg/0.5 Mg (3 Ml) Ud) 3 ml INH RQID [facility] Last Admin: 04/30/17 12:58 Dose: Not Given Aspirin (Ecotrin) 81 mg PO DAILY [facility] Last Admin: 04/30/17 09:13 Dose: Not Given Carvedilol (Coreg) 6.25 mg PO BID [facility] Last Admin: 04/30/17 17:01 Dose: 6.25 mg Epoetin Neville (Procrit) 4,000 unit IV [facility] Last Admin: 04/30/17 09:00 Dose: Not Given Finasteride (Proscar) 5 mg PO DAILY [facility] Last Admin: 04/30/17 09:14 Dose: Not Given Guaifenesin (Mucinex La) 600 mg PO DAILY [facility] Last Admin: 04/30/17 09:14 Dose: Not Given Isosorbide Mononitrate (Imdur) 60 mg PO DAILY [facility] Last Admin: 04/30/17 09:14 Dose: Not Given Paricalcitol (Zemplar) 2 mcg IV MWF [facility] Last Admin: 04/30/17 09:14 Dose: Not Given - Labs Labs: 04/28/17 16:34 04/28/17 16:34 PT 10.8 SECONDS (9.7-12.2) 04/28/17 16:34 INR 1.0 04/28/17 16:34 APTT 31 SECONDS (21-34) 04/28/17 16:34
--- NOTE | 2017-04-30 22:19 | PN ---
FOLLOWUP RENAL CONSULTATION DATE:04/30/2017 LOCATION: The patient is located in room 565, bed B. REQUESTED BY: Dr. Luis A Guthrie. REASON FOR FOLLOWUP: End-stage renal disease, for continuation of hemodialysis. SUBJECTIVE: Mr. Franks is an about 71 years old elderly -[place] male with a past medical history significant for longstanding hypertension, end-stage renal disease since 2013, CVA and also CA of the right tonsil, status post surgery and radiation therapy. Refusing PEG tube placement and also occasional choking due to noncompliance with dietary recommendations and speech and swallow recommendations. Status post fall about a week ago and had injury to the forehead and injury to nose and fracture of the nose. Now, the patient was brought in with the family on 04/30/2017 with chief complaints of status post fall x3 in the house on Friday morning and complaints of pain in the right knee. The patient denies any chest pain, palpitation. Denies any fever or cough. Denies any abdominal pain. No nausea, vomiting, diarrhea. The patient underwent a hemodialysis today. PHYSICAL EXAMINATION: GENERAL: Mr. Franks is a 71 years old elderly male, moderately built, moderately nourished, no in any distress. VITAL SIGNS: His vital signs as follows; blood pressure 148/97, pulse 74, respirations 20, temperature 98, saturation 97%. Height 5 feet 11 inches and weight is 176 pounds. HEENT: Pupils are normal and reactive to light and accommodation. Conjunctivae pink. Sclerae anicteric. Tongue is moist. Trachea is midline. The patient has slight swelling of the bridge of the nose and on the forehead. LUNGS: Symmetric on both sides. Bilateral breath sounds present. Clear on auscultation. CARDIOVASCULAR SYSTEM: [place] at the fifth intercostal space, midclavicular line. S1 and S2 audible. No murmur or gallop. ABDOMEN: Normal in appearance, soft, tympanic. No guarding. No rigidity. No hepatosplenomegaly. CENTRAL NERVOUS SYSTEM: The patient is alert, awake, oriented x3. Nonfocal neuro examination. Cranial nerves II through XII grossly intact. Sensory and motor system is within normal limits. EXTREMITIES: No cyanosis. No clubbing. No edema. LABORATORY DATA: His laboratory data includes as of 04/28/2017, hemoglobin 10.3, hematocrit is 31, platelets 249, WBC 8. Sodium 133, potassium 4.1, chloride 92, CO2 of 30, BUN 31, creatinine 6.3 and glucose 88, calcium 9.2, total bili 0.8, AST 18, ALT 22, alkaline phos is 50, total protein 7.1, albumin is 4.1 and TSH is 1.26. MEDICATIONS: His current medications include as follows; Coreg 6.25 mg p.o. b.i.d. and DuoNeb inhaler 3 mL q.i.d. and aspirin 81 mg daily, Imdur 60 mg p.o. daily and Procrit 4000 units 3 times a week, Proscar 5 mg p.o. daily and Zemplar 2 mcg 3 times a week. ASSESSMENT AND PLAN: In summary, Mr. Franks is a 71 years old elderly male with hypertension; cerebrovascular accident; cancer of the right tonsil, status post surgery and radiation therapy; end-stage renal disease since 2013, who was admitted with recurrent falls in the last 1 week and complains of feeling weak and tired, decreased p.o. intake as per the patient's sister. 1. End-stage renal disease. Continue hemodialysis 3 times a week, Friday, Friday, Friday. The patient underwent hemodialysis today without any complications and had ultrafiltration about 2.0 L. 2. Hypertension. Continue his antihypertensive medications. Continue his phosphate binders, Renvela powder and also continue Nephro Caps and consider Physical Therapy evaluation. The patient may benefit from the subacute rehab. We will follow with you. Thank you for allowing me to participate in your patient's care. Akshat Pak MD [facility]
[2017-05-01] MEDS: Albuterol-Ipratrop 3 mg / 0.5 (3 ml) UD INH SCH ×4 (07:17→19:59)
--- NOTE | 2017-05-01 08:52 | CP.PCM.PN ---
Subjective - Date & Time of Evaluation Date of Evaluation: 05/01/17 Time of Evaluation: 08:40 - Subjective Subjective: Pt no complain; elisa decrease cough, no CP, no SOB, no edema No n/v, no diarrhea Objective - Vital Signs/Intake and Output Vital Signs (last 24 hours): Temp Pulse Resp BP Pulse Ox 97.6 F 79 20 157/72 H 98 04/30/17 23:35 04/30/17 23:35 04/30/17 23:35 04/30/17 23:35 04/30/17 23:35 Intake and Output: 05/01/17 05/01/17 06:59 18:59 Intake Total 110 Output Total 0 Balance 110 - Medications Medications: Current Medications Albuterol/Ipratropium (Duoneb 3 Mg/0.5 Mg (3 Ml) Ud) 3 ml INH RQID [facility] Last Admin: 05/01/17 07:17 Dose: 3 ml Amlodipine Besylate (Norvasc) 10 mg PO DAILY [facility] Aspirin (Ecotrin) 81 mg PO DAILY [facility] Last Admin: 04/30/17 09:13 Dose: Not Given Carvedilol (Coreg) 6.25 mg PO BID [facility] Last Admin: 04/30/17 17:01 Dose: 6.25 mg Epoetin Neville (Procrit) 4,000 unit IV [facility] Last Admin: 04/30/17 09:00 Dose: Not Given Finasteride (Proscar) 5 mg PO DAILY [facility] Last Admin: 04/30/17 09:14 Dose: Not Given Guaifenesin (Mucinex La) 600 mg PO DAILY [facility] Last Admin: 04/30/17 09:14 Dose: Not Given Paricalcitol (Zemplar) 2 mcg IV [facility] Last Admin: 04/30/17 09:14 Dose: Not Given - Labs Labs: 04/28/17 16:34 04/28/17 16:34 PT 10.8 SECONDS (9.7-12.2) 04/28/17 16:34 INR 1.0 04/28/17 16:34 APTT 31 SECONDS (21-34) 04/28/17 16:34 - Constitutional Appears: No Acute Distress - Eye Exam Eye Exam: Normal appearance - ENT Exam ENT Exam: Mucous Membranes Moist - Neck Exam Neck Exam: Full ROM. absent: Lymphadenopathy, Thyromegaly - Respiratory Exam Respiratory Exam: absent: Rales - GI/Abdominal Exam GI & Abdominal Exam: Soft. absent: Tenderness, Mass - Extremities Exam Extremities Exam: Full ROM, Normal Capillary Refill. absent: Calf Tenderness, Joint Swelling, Pedal Edema Assessment and Plan - Assessment and Plan (Free Text) Assessment: Unsteady Gait; ESRD; HTN For Subacute
[2017-05-01] MEDS: guaiFENesin 600 mg ER Tab PO SCH (09:17)
--- NOTE | 2017-05-01 16:39 | CP.PCM.PN ---
Subjective - Date & Time of Evaluation Date of Evaluation: 05/01/17 Time of Evaluation: 16:36 - Subjective Subjective: pt is seen and examined, follow up consult is dictated #[id number] Objective - Vital Signs/Intake and Output Vital Signs (last 24 hours): Temp Pulse Resp BP Pulse Ox 98.4 F 65 20 129/82 94 L 05/01/17 15:22 05/01/17 15:22 05/01/17 15:22 05/01/17 15:22 05/01/17 15:22 Intake and Output: 05/01/17 05/01/17 06:59 18:59 Intake Total 110 Output Total 0 Balance 110 - Medications Medications: Current Medications Albuterol/Ipratropium (Duoneb 3 Mg/0.5 Mg (3 Ml) Ud) 3 ml INH RQID [facility] Last Admin: 05/01/17 15:41 Dose: 3 ml Amlodipine Besylate (Norvasc) 10 mg PO DAILY [facility] Last Admin: 05/01/17 09:17 Dose: 10 mg Aspirin (Ecotrin) 81 mg PO DAILY [facility] Last Admin: 05/01/17 09:17 Dose: 81 mg Carvedilol (Coreg) 6.25 mg PO BID [facility] Last Admin: 05/01/17 09:17 Dose: 6.25 mg Epoetin Neville (Procrit) 4,000 unit IV [facility] Last Admin: 04/30/17 09:00 Dose: Not Given Finasteride (Proscar) 5 mg PO DAILY [facility] Last Admin: 05/01/17 09:17 Dose: 5 mg Guaifenesin (Mucinex La) 600 mg PO DAILY [facility] Last Admin: 05/01/17 09:17 Dose: 600 mg Paricalcitol (Zemplar) 2 mcg IV MWF [facility] Last Admin: 04/30/17 09:14 Dose: Not Given - Labs Labs: 04/28/17 16:34 04/28/17 16:34 PT 10.8 SECONDS (9.7-12.2) 04/28/17 16:34 INR 1.0 04/28/17 16:34 APTT 31 SECONDS (21-34) 04/28/17 16:34
--- NOTE | 2017-05-01 17:06 | PN ---
DATE: NEUROLOGY PROGRESS NOTE SUBJECTIVE: Patient is lying on the bed, in no acute distress. Denies having any headache or dizziness. PHYSICAL EXAMINATION: VITAL SIGNS: His blood pressure is 126/85, heart rate is 68 per minute, breathing at the rate of 16 per minute, and temperature is 98.3 degree Fahrenheit. HEENT: Head is normocephalic and atraumatic. NECK: Supple. There are no carotid bruits. LUNGS: Clear. CARDIOVASCULAR: S1 and S2 audible. No murmurs. ABDOMEN: Soft and nontender. Bowel sounds are present. NEUROLOGIC: Mental status: Patient is awake and alert, oriented to time, year, and place. He follows all simple commands. Cranial nerve: Pupils are 3 mm bilaterally, reactive to light. Visual croft are full. Extraocular movements are intact. There is no facial asymmetry. Power is 4 to 5/5 all over. Gait is very unsteady even with a cane. LABORATORY DATA: Labs reviewed, shows MRI of the brain shows no acute or subacute brain infarction. Reiteration of age-related neurodegenerative changes are identified. Bilateral basal ganglia dilated. Perivascular spaces are seen once again with underlying chronic lacunes. IMPRESSION: 1. Gait dysfunction. 2. Cerebrovascular disease. 3. 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 4. History of throat cancer. 5. End-stage renal disease, on hemodialysis. RECOMMENDATIONS: 1. Patient to have physical therapy for gait and balance. 2. Patient to be continued on aspirin because of underlying cerebrovascular disease. 3. Patient is ruled out for any acute stroke. 4. Patient also had an electroencephalogram done which is normal. 5. Patient is a good candidate for acute rehabilitation or subacute rehabilitation placement which will help his gait and balance. 6. Patient's dizziness is better. 7. Please continue other treatment and supportive care. Thank you for the opportunity to participate in the care of this patient. Crispin Garzon MD
--- NOTE | 2017-05-01 21:54 | PN ---
DATE:05/01/2017 FOLLOWUP RENAL CONSULTATION LOCATION: The patient is located in room #659, bed B. REQUESTED BY: Luis A Guthrie MD REASON FOR RENAL CONSULTATION: End-stage renal disease, for continuation of hemodialysis. SUBJECTIVE: Mr. Golden Thakkar is a 71 years old elderly very pleasant male with a past medical history significant for hypertension, CVA, right tonsillar carcinoma, status post surgery, status post radiation treatment with dysphagia, refusing dietary recommendation, had a recent fall about 10 days ago and had an injury to the forehead and also found to have fracture of the nose. Now, the patient was admitted on Friday with recurrent falls in the house and feeling weak and tired and decreased p.o. intake. The patient is feeling slightly better since admission and not in distress. Denies any chest pain or palpitation. Denies any fever or cough. Denies any abdominal pain. No nausea or vomiting. PHYSICAL EXAMINATION: VITAL SIGNS: Blood pressure 129/82, pulse 65, respirations 20, temperature 98.4, saturation 94%. Height 5 feet 11 inches and weight is 74.5 kg post dialysis on Friday. GENERAL: Mr. Franks is a 71 years old elderly male, moderately-built, moderately-nourished, not in acute distress. HEENT: Pupils are normal and reactive to light and accommodation. Conjunctivae pink. Sclerae anicteric. Tongue is moist and trachea is midline. LUNGS: Symmetric on both sides. Bilateral breath sounds present. Clear on auscultation. CARDIOVASCULAR SYSTEM: [place] at the fifth intercostal space, midclavicular line. S1, S2 audible. No murmur. No gallop. ABDOMEN: Normal in appearance, soft, tympanic. No guarding. No rigidity. No hepatosplenomegaly. CENTRAL NERVOUS SYSTEM: The patient is alert, awake and oriented x3. Nonfocal neuro examination. Cranial nerves II through XII grossly intact. Sensory and motor system is within normal limits. EXTREMITIES: No cyanosis, no clubbing, no edema. CURRENT MEDICATIONS: As follows; Coreg 6.25 mg p.o. b.i.d., DuoNeb inhaler, aspirin 81 mg daily, Mucinex 600 mg p.o. daily, Norvasc 10 mg daily, Procrit 4000 units 3 times a week, Proscar 5 mg p.o. daily and Zemplar 2 mcg 3 times a week. LABORATORY DATA: No new labs are available for today and last labs as of 04/28/2017; WBC 8, hemoglobin 10.3, hematocrit is 31, platelets 249. BUN and creatinine 31/6.3 and Accu-Cheks 130. Hepatitis B surface antigen negative and TSH is 1.26. ASSESSMENT: In summary, Mr. Franks is a 71 years old elderly male with hypertension, cerebrovascular accident, right tonsillar carcinoma, status post surgery, radiation therapy with the dysphagia, was admitted with recurrent falls on Friday with some pain in the right knee joint on admission with a decreased p.o. intake and feeling weak and tired. 1. End-stage renal disease. Continue hemodialysis 3 times a week Friday, Friday, Friday. 2. Hypertension. Blood pressure is stable. 3. Generalized weakness, most likely secondary to decreased p.o. intake. 4. Recurrent falls most likely secondary to decreased p.o. intake. PLAN: Continue dietary supplement. Continue hemodialysis 3 times a week and we will avoid no hypotension during hemodialysis and we will try to ultrafiltrate 1 to 1.3 liters as tolerated and repeat CBC, CMP and phosphorus level in a.m. We will follow with you. Thank you for allowing me to participate in your patient's care. Consider physical therapy evaluation and rehab placement. Akshat Pak MD [facility]
--- NOTE | 2017-05-02 09:25 | CP.PCM.PN ---
Subjective - Date & Time of Evaluation Date of Evaluation: 05/02/17 Time of Evaluation: 09:25 - Subjective Subjective: pt is seen and examined, follow up consult is dictated #[id number] seen in hd today, uf 2 lit Objective - Vital Signs/Intake and Output Vital Signs (last 24 hours): Temp Pulse Resp BP Pulse Ox 98.3 F 69 20 157/89 H 95 05/01/17 23:35 05/01/17 23:35 05/01/17 23:35 05/01/17 23:35 05/01/17 23:35 Intake and Output: 05/02/17 05/02/17 06:59 18:59 Output Total 200 Balance -200 - Medications Medications: Current Medications Albuterol/Ipratropium (Duoneb 3 Mg/0.5 Mg (3 Ml) Ud) 3 ml INH RQID [facility] Last Admin: 05/01/17 19:59 Dose: 3 ml Amlodipine Besylate (Norvasc) 10 mg PO DAILY [facility] Last Admin: 05/01/17 09:17 Dose: 10 mg Aspirin (Ecotrin) 81 mg PO DAILY [facility] Last Admin: 05/01/17 09:17 Dose: 81 mg Carvedilol (Coreg) 6.25 mg PO BID [facility] Last Admin: 05/01/17 21:44 Dose: 6.25 mg Epoetin Neville (Procrit) 4,000 unit IV MWF [facility] Last Admin: 04/30/17 09:00 Dose: Not Given Finasteride (Proscar) 5 mg PO DAILY [facility] Last Admin: 05/01/17 09:17 Dose: 5 mg Guaifenesin (Mucinex La) 600 mg PO DAILY [facility] Last Admin: 05/01/17 09:17 Dose: 600 mg Paricalcitol (Zemplar) 2 mcg IV MWF [facility] Last Admin: 04/30/17 09:14 Dose: Not Given - Labs Labs: 04/28/17 16:34 04/28/17 16:34 PT 10.8 SECONDS (9.7-12.2) 04/28/17 16:34 INR 1.0 04/28/17 16:34 APTT 31 SECONDS (21-34) 04/28/17 16:34
--- NOTE | 2017-05-02 09:51 | CP.PCM.PN ---
Subjective - Date & Time of Evaluation Date of Evaluation: 05/02/17 Time of Evaluation: 09:40 - Subjective Subjective: Pt on HD. no complain, no n/v no cP, no SOB, slight dec cough Objective - Vital Signs/Intake and Output Vital Signs (last 24 hours): Temp Pulse Resp BP Pulse Ox 98.3 F 69 20 157/89 H 95 05/01/17 23:35 05/01/17 23:35 05/01/17 23:35 05/01/17 23:35 05/01/17 23:35 Intake and Output: 05/02/17 05/02/17 06:59 18:59 Output Total 200 Balance -200 - Medications Medications: Current Medications Albuterol/Ipratropium (Duoneb 3 Mg/0.5 Mg (3 Ml) Ud) 3 ml INH RQID [facility] Last Admin: 05/01/17 19:59 Dose: 3 ml Amlodipine Besylate (Norvasc) 10 mg PO DAILY [facility] Last Admin: 05/01/17 09:17 Dose: 10 mg Aspirin (Ecotrin) 81 mg PO DAILY [facility] Last Admin: 05/01/17 09:17 Dose: 81 mg Carvedilol (Coreg) 6.25 mg PO BID [facility] Last Admin: 05/01/17 21:44 Dose: 6.25 mg Epoetin Neville (Procrit) 4,000 unit IV MWF [facility] Last Admin: 04/30/17 09:00 Dose: Not Given Finasteride (Proscar) 5 mg PO DAILY [facility] Last Admin: 05/01/17 09:17 Dose: 5 mg Guaifenesin (Mucinex La) 600 mg PO DAILY [facility] Last Admin: 05/01/17 09:17 Dose: 600 mg Paricalcitol (Zemplar) 2 mcg IV MWF [facility] Last Admin: 04/30/17 09:14 Dose: Not Given - Labs Labs: 04/28/17 16:34 04/28/17 16:34 PT 10.8 SECONDS (9.7-12.2) 04/28/17 16:34 INR 1.0 04/28/17 16:34 APTT 31 SECONDS (21-34) 04/28/17 16:34 - Constitutional Appears: No Acute Distress - Eye Exam Eye Exam: Normal appearance - ENT Exam ENT Exam: Mucous Membranes Moist - Neck Exam Neck Exam: Full ROM. absent: Lymphadenopathy, Thyromegaly - Respiratory Exam Respiratory Exam: Clear to Ausculation Bilateral. absent: Rales, Rhonchi, Wheezes - Cardiovascular Exam Cardiovascular Exam: +S1, +S2, Murmur. absent: Gallop, REGULAR RHYTHM, JVD - GI/Abdominal Exam GI & Abdominal Exam: Soft. absent: Tenderness, Mass - Extremities Exam Extremities Exam: Full ROM, Joint Swelling. absent: Calf Tenderness, Normal Capillary Refill, Pedal Edema Assessment and Plan - Assessment and Plan (Free Text) Assessment: Unsteady Gait w/ Freq fall; ESRD, HTN Slowly inc BP meds until 130/80 Supportive care
[2017-05-02 09:54] LABS: BASO % 0.3 % (0.0-2.0); EOS # 0.2 K/uL (0.0-0.7); EOS % 1.7 % (0.0-4.0); HEMATOCRIT 32.2 % (35.0-51.0); LYMPH # 0.4 K/uL (1.0-4.3); LYMPH % 3.5 % (20.0-40.0); MEAN CELL VOLUME 94.3 fL (80.0-94.0); MEAN CORPUSCULAR HEMOGLOBIN 31.9 pg (27.0-31.0); MEAN CORPUSCULAR HGB CONC 33.8 g/dL (33.0-37.0); MEAN PLATELET VOLUME 6.8 fL (7.2-11.7); MONO # 0.5 K/uL (0.0-0.8); PLATELET COUNT 218 K/uL (130-400); RED CELL DISTRIBUTION WIDTH 14.6 % (11.5-14.5); WHITE BLOOD COUNT 11.8 K/uL (4.8-10.8)
[2017-05-02] MEDS: Albuterol-Ipratrop 3 mg / 0.5 (3 ml) UD INH SCH ×4 (10:04→20:12)
[2017-05-02 10:20] LABS: ALB/GLOB RATIO 1.4 (1.0-2.1); BILIRUBIN,TOTAL 0.9 mg/dL (0.2-1.3); CALCIUM 8.8 mg/dl (8.6-10.4); PHOSPHOROUS 3.6 mg/dL (2.5-4.5); POTASSIUM 4.5 mmol/L (3.6-5.2); TOTAL PROTEIN 6.8 g/dL (6.3-8.3)
[2017-05-02] MEDS: EPOETIN ALFA 4,000 UNIT/ML ML Dialysis IV SCH (10:28)
[2017-05-02] MEDS: Paricalcitol 2 mcg/ml Inj IV SCH (10:30)
[2017-05-02 10:31] LABS: BASOPHIL 1 % (0-2); EOSINOPHIL 2 % (0-4); NEUTROPHIL 92 % (50-75); TOTAL CELLS COUNTED 100
[2017-05-02] MEDS: guaiFENesin 600 mg ER Tab PO SCH (13:48)
[2017-05-02] MEDS ORDERED: Sodium Chloride 0.9% 250 ML IV ONE (15:45)
[2017-05-02] MEDS ORDERED: Glucagon Recombinant 1 mg Inj IV ONE (15:45)
--- NOTE | 2017-05-02 21:57 | PCM.RRT ---
<Lillian Morocho - Last Filed: 05/02/17 21:57> SCHOOL SOCIAL WORKER Nurses Assessment - Situation Date: 05/02/17 Time SCHOOL SOCIAL WORKER was called: 15:23 SCHOOL SOCIAL WORKER Responder Arrival Time:: 15:24 SCHOOL SOCIAL WORKER Location:: Med/Surg Room Number: 659b SCHOOL SOCIAL WORKER Reason for Call: Hypotension SCHOOL SOCIAL WORKER Called By: RN - IV IV Inserted during SCHOOL SOCIAL WORKER?: No IV Fluids Initiated During SCHOOL SOCIAL WORKER?: yes. .9 ns 250ml - Respiratory SCHOOL SOCIAL WORKER Delivery Method: Venturi Mask @% Received Nebulizer Treatments: No Was the Patient Ventilated with Bag/Mask 100% O2?: No Secretions Suctioned?: No Was the Patient Intubated?: No Was the Patient Placed on a Ventilator?: No - Medication Medications Administered During SCHOOL SOCIAL WORKER: . 9 ns 250 ml, glucagon - Diagnostic Test Ordered EKG: No Chest X-Ray: No CT Scan: No CPR started during SCHOOL SOCIAL WORKER?: No - Vital Signs Vital Signs: Rapid Response Vital Sign Blood Pressure 96/66 Pulse Rate 53 Respiratory Rate 20 Temperature 97.6 F Oxygen Saturation 99 - Recommendations Notifications: Attending Physician I.Reason for SCHOOL SOCIAL WORKER - A) Acute Change in Patient: (Select all that apply): Acute change in SBP below (SBP: 96) - Respiratory Oxygen Delivery Method: Venturi Mask @% - Constitutional Appears: No Acute Distress - Head Head Exam: ATRAUMATIC, NORMAL INSPECTION - Eyes Eye Exam: EOMI - Respiratory Exam Respiratory Exam: NORMAL BREATHING PATTERN - Cardiovascular Exam Cardiovascular Exam: REGULAR RHYTHM, +S1, +S2 - GI/Abdominal Exam GI & Abdominal Exam: Soft, Normal Bowel Sounds - Neurological Exam Neurological Exam: Alert, Awake - Extremities Exam Extremities Exam: Normal Inspection Plan - Assessment of Findings&Treatment Plan 71 year old with renal insufficiency on HD, who had a SCHOOL SOCIAL WORKER for hypotension an hour after HD; BP was 96/57. Patient was also given anti-hypertensive medications after HD: Plan: 1. NS 250 bolus given 2. BP rechecked 10 minutes into the SCHOOL SOCIAL WORKER ( 105/65) 3. Glucagon 1 amp was given to correct the effect beta -iona 3. After 250cc bolus given, 105/65 4. PMD notified <Lelo Oliver V - Last Filed: 05/02/17 23:03> SCHOOL SOCIAL WORKER Nurses Assessment - Vital Signs Vital Signs: Rapid Response Vital Sign Blood Pressure 96/66 Pulse Rate 53 Respiratory Rate 20 Temperature 97.6 F Oxygen Saturation 99 Attending/Attestation - Attestation I have personally seen and examined this patient.: Yes I have fully participated in the care of the patient.: Yes I have reviewed all pertinent clinical information, including history, physical exam and plan: Yes Notes (Text): Brief Hospitalist note SCHOOL SOCIAL WORKER: hypotension; lightheadedness Patient seen at bedside in [facility]. Patient requesting to use the bathroom. Patient completed dialysis earlier about 2.5L removed and was given Norvasc 10mg and Coreg 12.5mg post dialysis. Patient's blood pressure is low. Order NS 250 cc bolus X1, and Glucagon 1mg IV to reverse effect of beta iona. Blood pressure improved. Advised to put patient on telemetry. Repeat blood pressure in 30 minutes. General: awake, alert, appears very dry on exam Heart; S1,S2 Lungs; good air exchange Abdomen: soft, NT/ND, +BS, no rebound no guarding Extemities; no cyanosis, no clubbing no edema Neuro: patient able to follow commands, responds to name, able to lift arms and legs up, patient is try to get up to use the bathroom. Advised not to. Blood pressure. Endorsed resident to inform patient's PMD, Dr. Guthrie regarding events.
--- NOTE | 2017-05-02 22:15 | CON ---
DATE;05/02/2017 FOLLOWUP RENAL CONSULTATION LOCATION: The patient is located in room 659. REQUESTED BY: Luis A Guthrie MD REASON FOR FOLLOWUP: End-stage renal disease for continuation of the hemodialysis. HISTORY OF PRESENT ILLNESS: Mr. 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 Denies any chest pain or palpitation. Denies any shortness of breath. He does complaints of decreased p.o. intake and poor appetite as per the patient's sister at bedside. The patient was seen and examined during dialysis this morning. UF goal is about 2 liters. The patient denies any complaints. PHYSICAL EXAMINATION: VITAL SIGNS: As follows; blood pressure during dialysis 132/86, pulse 59, respirations 21, temperature 98. Height 5 feet 11 inches and weight is 74.5 kg. GENERAL: Mr. Franks is a 71 years old elderly -Green[place]ic male, moderately built, moderately nourished, not in acute distress. HEENT: Pupils normal, reactive to light and accommodation. Conjunctivae pink. Sclerae anicteric. Tongue is moist. Trachea is midline. LUNGS: Symmetric on both sides. Bilateral breath sounds present. Clear on auscultation. CVS: [place] at the fifth intercostal space, midclavicular line. S1 and S2 audible. No murmur. No gallop. ABDOMEN: Normal in appearance, soft, tympanic. No guarding. No rigidity. No hepatosplenomegaly. 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 Nonfocal neuro examination. Cranial nerves II through XII grossly intact. Sensory and motor system is within normal limits. EXTREMITIES: No cyanosis, no clubbing, no edema. CURRENT MEDICATIONS: Include as follows; Coreg 12.5 mg p.o. b.i.d. on hold, DuoNeb inhaler, aspirin 81 mg daily, Mucinex 600 mg p.o. b.i.d., amlodipine 10 mg p.o. daily, Procrit 4000 three times a week, Proscar 5 mg p.o. daily and Zemplar 2 mcg three times a week. LABORATORY DATA: Include as follows; WBC 11.8, hemoglobin 10.9, hematocrit is 32.2, platelets 218. Sodium 132, potassium 4.5, chloride 95, CO2 of 26, BUN 46, creatinine 3.9, glucose is 106, calcium is 8.8, phosphorus 3.6, total bili 0.9, AST 20, ALT 29, alkaline phosphatase 54, total protein 6.8, and albumin is 3.9. ASSESSMENT AND PLAN: In summary, Mr. Golden Thakkar is a 71 years old elderly -Green[place]ic male with a history of longstanding hypertension; cerebrovascular accident; cancer of the right tonsil, status post surgery, radiation; end-stage renal disease, on hemodialysis, three times a week Friday, Friday and Friday; status post fall about a week ago and injury to the nose and now patient was admitted with feeling dizzy, lightheaded, decreased p.o. intake and multiple falls in the house without any gross injury. 1. End-stage renal disease. Continue hemodialysis three times a week Friday, Friday and Friday. 2. Hypertension. I agree to hold blood pressure today and decreased on Coreg to 3.125 mg p.o. b.i.d. and hold for systolic blood pressure less than 130 and heart rate less than 60 and also we placed parameters and Norvasc 10 mg hold for systolic blood pressure less than 130. We will consider to decrease the blood pressure medicine amlodipine to 5 mg daily. We will also add Renvela 800 mg p.o. t.i.d. Continue physical therapy evaluation and awaiting for the possible subacute rehab placement for physical therapy. Thank you for allowing me to participate in your patient's care. Tolerating ultrafiltration this morning very well without any complications. Akshat Pak MD MTDD
[2017-05-03] MEDS: Multivitamin Vitamin B Complex (Nephro-Vite) Tab PO SCH (08:31)
[2017-05-03] MEDS: Sevelamer Carb 0.8 gm/Packet PO SCH ×3 (08:34→17:57)
[2017-05-03] MEDS: Albuterol-Ipratrop 3 mg / 0.5 (3 ml) UD INH SCH ×4 (08:48→19:26)
[2017-05-03] MEDS: guaiFENesin 600 mg ER Tab PO SCH (10:50)
--- NOTE | 2017-05-03 16:12 | PN ---
NEUROLOGY PROGRESS NOTE SUBJECTIVE: The patient is sitting on the bed in no acute distress. Yesterday, the patient had a rapid response because of his low blood pressure. He denies to have any headache or dizziness. Denies any focal weakness in arms or legs. PHYSICAL EXAMINATION: VITAL SIGNS: His blood pressure this morning is 113/78, heart rate is 80 per minute, breathing at the rate of 16 per minute, and temperature is 97 degree Fahrenheit. HEENT: Head is normocephalic and atraumatic. NECK: Supple. There are no carotid bruits. LUNGS: Clear. CARDIOVASCULAR: S1 and S2 audible. No murmurs. ABDOMEN: Soft and nontender. Bowel sounds are present. NEUROLOGIC: Mental status: The patient is awake and alert, oriented to time, place and person. Speech is slightly dysarthric. Naming and repetition good. Cranial nerve examination: Pupils are 3 mm bilaterally, reactive to light. Visual croft are full. Extraocular movements are intact. There is no facial asymmetry. Power is 4/5 to 5/5 bilaterally in all extremities. His gait unsteady, walks with the help of a cane. IMPRESSION: 1. Gait dysfunction. 2. Cerebrovascular disease. 3. Status post dizziness, secondary to labyrinthine dysfunction. 4. History of throat cancer. 5. End-stage renal disease, on hemodialysis. RECOMMENDATIONS: 1. Although the patient's blood pressure was low yesterday, he has no focal or neurologic deficits or dizziness. 2. The patient continues to be on aspirin for his underlying cerebrovascular disease. 3. The patient to have physical therapy for gait and balance. 4. The patient is a good candidate for rehabilitation placement. 5. Please continue other treatment and supportive care. Thank you for the opportunity to participate in the care of this patient. Crispin Garzon MD
--- NOTE | 2017-05-03 18:33 | CP.PCM.PN ---
Subjective - Date & Time of Evaluation Date of Evaluation: 05/03/17 Time of Evaluation: 18:32 - Subjective Subjective: pt is seen and examined, follow up consult is dictated #[id number] check x ray of rt knee to r/o fx Objective - Vital Signs/Intake and Output Vital Signs (last 24 hours): Temp Pulse Resp BP Pulse Ox 97.7 F 67 18 134/79 100 05/03/17 15:53 05/03/17 15:53 05/03/17 15:53 05/03/17 15:53 05/03/17 15:53 Intake and Output: 05/03/17 05/03/17 06:59 18:59 Intake Total 240 Balance 240 - Medications Medications: Current Medications Albuterol/Ipratropium (Duoneb 3 Mg/0.5 Mg (3 Ml) Ud) 3 ml INH RQID [facility] Last Admin: 05/03/17 12:23 Dose: 3 ml Amlodipine Besylate (Norvasc) 5 mg PO DAILY [facility] Last Admin: 05/03/17 10:50 Dose: 5 mg Aspirin (Ecotrin) 81 mg PO DAILY [facility] Last Admin: 05/03/17 10:50 Dose: 81 mg Carvedilol (Coreg) 12.5 mg PO BID [facility] Last Admin: 05/02/17 13:48 Dose: 12.5 mg Epoetin Neville (Procrit) 4,000 unit IV MWF [facility] Last Admin: 05/02/17 10:28 Dose: 4,000 unit Finasteride (Proscar) 5 mg PO DAILY [facility] Last Admin: 05/03/17 10:50 Dose: 5 mg Guaifenesin (Mucinex La) 600 mg PO DAILY [facility] Last Admin: 05/03/17 10:50 Dose: 600 mg Paricalcitol (Zemplar) 2 mcg IV MWF [facility] Last Admin: 05/02/17 10:30 Dose: 2 mcg Sevelamer Carbonate (Renvela) 0.8 gm PO TIDCC [facility] Last Admin: 05/03/17 17:57 Dose: 0.8 gm Vitamin B Complex/Vit C/Folic Acid (Nephro-John) 1 tab PO 0800 [facility] Last Admin: 05/03/17 08:31 Dose: 1 tab - Labs Labs: 05/02/17 09:46 05/02/17 09:46 PT 10.8 SECONDS (9.7-12.2) 04/28/17 16:34 INR 1.0 04/28/17 16:34 APTT 31 SECONDS (21-34) 04/28/17 16:34
--- NOTE | 2017-05-04 03:42 | PN ---
DATE:05/03/2017 FOLLOWUP RENAL CONSULTATION LOCATION: Room 659, bed B. REQUESTED BY: Luis A Guthrie MD REASON FOR FOLLOWUP: End-stage renal disease, continuation of hemodialysis. HISTORY OF PRESENT ILLNESS: Mr. Golden Moy is a 71-year-old elderly very pleasant male with history of hypertension; CVA; end-stage renal disease, on hemodialysis, since 2013; and also history of right tonsillar carcinoma, status post surgery and radiation therapy; dysphagia and not following the dietary recommendations for finely chopped and thick liquids. The patient was admitted after he had recurrent falls on the day of admission x3 and prior to that the patient had a fall 1-week prior to this admission and had fracture of the nose. The patient is feeling better this evening. Denies any chest pain or palpitation. Denies any fever or cough. No abdominal pain. No nausea, vomiting or diarrhea. No dysuria or frequency. The patient's sister is concerned about the right knee joint and requesting for possible x-ray to rule out any fracture. The patient is not in acute distress. PHYSICAL EXAMINATION: VITAL SIGNS: As follows, blood pressure 134/79, pulse 67, respiration 18, temperature 97.7, saturation 100%. Height 5 feet 11 inches and weight is 74.5 kg. GENERAL: Mr. Golden Thakkar is about 71-year-old elderly male, moderately built, moderately nourished, not in distress. HEENT: Pupils are normal and reactive to light and accommodation. Conjunctivae pink. Sclerae anicteric. Tongue is moist. Trachea is midline. LUNGS: Symmetric on both sides. Bilateral breath sounds present. Clear on auscultation. CARDIOVASCULAR:: [place] at the fifth intercostal space, midclavicular area. S1 and S2 audible. No murmur or gallop. ABDOMEN: Normal in appearance, soft, tympanic. No guarding. No rigidity. No hepatosplenomegaly. CENTRAL NERVOUS SYSTEM: The patient is alert, awake, oriented x3. Nonfocal neurologic exam. Cranial nerves II through XII grossly intact. Sensory and motor system is within normal limits. EXTREMITIES: No cyanosis, no clubbing, no edema. CURRENT MEDICATIONS: Include as follows, Coreg and hold due to hypotension, DuoNeb inhaler, aspirin 81 mg daily, Mucinex 600 mg p.o. daily, Nephro-John 1 tablet daily, Norvasc 5 mg p.o. daily, Procrit 4000 units 3 times a week, Proscar 5 mg daily, Renvela 800 mg p.o. t.i.d. and Zemplar 2 mcg 3 times a week. OTHER LABORATORY DATA: Accu-Cheks 82, 83,126 and 134. In summary, Mr. Franks is a 71-year-old elderly male with a history of hypertension, CVA, and right tonsillar carcinoma, status post surgery, radiation therapy with dysphagia, decreased p.o. intake, and weakness, was admitted after recurrent falls on the day of admission without any injury this time and status post fall x1 week ago with a fracture of the nose. ASSESSMENT AND PLAN: 1. End-stage renal disease. Continue hemodialysis three times a week, Friday, Friday and Friday. 2. Hypertension, status post hypotension post dialysis after taking Coreg, now Coreg is on hold. Continue Norvasc 5 mg instead of 10 mg and titrate blood pressure medicine. The patient may need Coreg 3.125 mg p.o. b.i.d. and monitor and also repeat x-ray of the right knee joint and follow with dietary and speech recommendations and also consider physical therapy and subacute rehab placement. We will follow with you. Thank you for allowing me to participate in your patient's care. Akshat Pak MD MTDHernan
[2017-05-04] MEDS: Albuterol-Ipratrop 3 mg / 0.5 (3 ml) UD INH SCH ×4 (07:44→20:04)
[2017-05-04] MEDS: Sevelamer Carb 0.8 gm/Packet PO SCH ×3 (08:26→17:57)
[2017-05-04] MEDS: Multivitamin Vitamin B Complex (Nephro-Vite) Tab PO SCH (08:42)
[2017-05-04] MEDS: guaiFENesin 600 mg ER Tab PO SCH (10:42)
--- NOTE | 2017-05-04 14:30 | CP.PCM.PN ---
Subjective - Date & Time of Evaluation Date of Evaluation: 05/04/17 Time of Evaluation: 14:27 - Subjective Subjective: S: Feel brandie. No SOB. No chestpain. Had episode of hypotension. Objective - Vital Signs/Intake and Output Vital Signs (last 24 hours): Temp Pulse Resp BP Pulse Ox 98.4 F 75 18 147/67 100 05/04/17 09:34 05/04/17 09:34 05/04/17 09:34 05/04/17 09:34 05/04/17 09:34 Intake and Output: 05/04/17 05/04/17 06:59 18:59 Intake Total 240 Balance 240 - Medications Medications: Current Medications Albuterol/Ipratropium (Duoneb 3 Mg/0.5 Mg (3 Ml) Ud) 3 ml INH RQID [facility] Last Admin: 05/04/17 11:36 Dose: 3 ml Amlodipine Besylate (Norvasc) 5 mg PO DAILY [facility] Last Admin: 05/04/17 10:43 Dose: 5 mg Aspirin (Ecotrin) 81 mg PO DAILY [facility] Last Admin: 05/04/17 10:43 Dose: 81 mg Carvedilol (Coreg) 12.5 mg PO BID [facility] Last Admin: 05/02/17 13:48 Dose: 12.5 mg Epoetin Neville (Procrit) 4,000 unit IV MWF [facility] Last Admin: 05/02/17 10:28 Dose: 4,000 unit Finasteride (Proscar) 5 mg PO DAILY [facility] Last Admin: 05/04/17 10:43 Dose: 5 mg Guaifenesin (Mucinex La) 600 mg PO DAILY [facility] Last Admin: 05/04/17 10:42 Dose: 600 mg Paricalcitol (Zemplar) 2 mcg IV MWF [facility] Last Admin: 05/02/17 10:30 Dose: 2 mcg Sevelamer Carbonate (Renvela) 0.8 gm PO TIDCC [facility] Last Admin: 05/04/17 08:26 Dose: 0.8 gm Vitamin B Complex/Vit C/Folic Acid (Nephro-John) 1 tab PO 0800 [facility] Last Admin: 05/04/17 08:42 Dose: 1 tab - Labs Labs: 05/02/17 09:46 05/02/17 09:46 PT 10.8 SECONDS (9.7-12.2) 04/28/17 16:34 INR 1.0 04/28/17 16:34 APTT 31 SECONDS (21-34) 04/28/17 16:34 - Constitutional Appears: Chronically Ill - Head Exam Head Exam: ATRAUMATIC (neck scarring noted ) - Eye Exam Eye Exam: Normal appearance - ENT Exam ENT Exam: Normal Exam - Respiratory Exam Respiratory Exam: NORMAL BREATHING PATTERN - Cardiovascular Exam Cardiovascular Exam: REGULAR RHYTHM - GI/Abdominal Exam GI & Abdominal Exam: Soft - Rectal Exam Rectal Exam: Deferred - Extremities Exam Extremities Exam: absent: Pedal Edema (left arm AV shunt working, ) - Neurological Exam Neurological Exam: Alert Assessment and Plan (1) Weakness Status: Acute (2) ESRD (end stage renal disease) Status: Chronic (3) Physical debility Status: Acute - Assessment and Plan (Free Text) Assessment: A/P continue medications. Discuss in patient and out patient . Physical therapy
--- NOTE | 2017-05-04 17:28 | RAD ---
PROCEDURE: Right Knee Radiographs. HISTORY: s/p fall r/o fx COMPARISON: None. FINDINGS: BONES: No evidence of acute fracture nor dislocation. JOINTS: . There appears to be mild joint space narrowing. Small anterior superior/ anterior inferior patella enthesophyte present. . Small enthesophyte also seen arising from the region the tibial tubercle. . Questionable exostoses arising from the proximal fibula. JOINT EFFUSION: No significant effusion OTHER FINDINGS: Vascular calcifications are present IMPRESSION: No evidence of acute displaced fracture nor dislocation. Minor DJD.
[2017-05-05] MEDS: Albuterol-Ipratrop 3 mg / 0.5 (3 ml) UD INH SCH (07:18)
[2017-05-05 07:26] LABS: HEMATOCRIT 34.3 % (35.0-51.0); MEAN CELL VOLUME 94.4 fL (80.0-94.0); MEAN CORPUSCULAR HGB CONC 33.9 g/dL (33.0-37.0); MEAN PLATELET VOLUME 7.3 fL (7.2-11.7); RED CELL DISTRIBUTION WIDTH 14.9 % (11.5-14.5)
[2017-05-05 09:01] LABS: BILIRUBIN,TOTAL 0.6 mg/dL (0.2-1.3); CALCIUM 9.3 mg/dl (8.6-10.4); POTASSIUM 4.2 mmol/L (3.6-5.2); TOTAL PROTEIN 7.5 g/dL (6.3-8.3)
--- NOTE | 2017-05-05 09:27 | CP.PCM.PN ---
Subjective - Date & Time of Evaluation Date of Evaluation: 05/05/17 Time of Evaluation: 08:50 - Subjective Subjective: Pt no complain; had hypotension on 05/02 post HD NO CP, no SOB, no edema; no cough, no abd pain Objective - Vital Signs/Intake and Output Vital Signs (last 24 hours): Temp Pulse Resp BP Pulse Ox 97.8 F 72 18 135/86 94 L 05/05/17 08:25 05/05/17 08:25 05/05/17 08:25 05/05/17 08:25 05/05/17 08:25 Intake and Output: 05/05/17 05/05/17 06:59 18:59 Intake Total 150 Balance 150 - Medications Medications: Current Medications Albuterol/Ipratropium (Duoneb 3 Mg/0.5 Mg (3 Ml) Ud) 3 ml INH RQID [facility] Last Admin: 05/05/17 07:18 Dose: 3 ml Amlodipine Besylate (Norvasc) 5 mg PO DAILY [facility] Last Admin: 05/04/17 10:43 Dose: 5 mg Aspirin (Ecotrin) 81 mg PO DAILY [facility] Last Admin: 05/04/17 10:43 Dose: 81 mg Carvedilol (Coreg) 12.5 mg PO BID [facility] Last Admin: 05/02/17 13:48 Dose: 12.5 mg Epoetin Neville (Procrit) 4,000 unit IV MWF [facility] Last Admin: 05/02/17 10:28 Dose: 4,000 unit Finasteride (Proscar) 5 mg PO DAILY [facility] Last Admin: 05/04/17 10:43 Dose: 5 mg Guaifenesin (Mucinex La) 600 mg PO DAILY [facility] Last Admin: 05/04/17 10:42 Dose: 600 mg Paricalcitol (Zemplar) 2 mcg IV MWF [facility] Last Admin: 05/02/17 10:30 Dose: 2 mcg Sevelamer Carbonate (Renvela) 0.8 gm PO TIDCC [facility] Last Admin: 05/04/17 17:57 Dose: 0.8 gm Vitamin B Complex/Vit C/Folic Acid (Nephro-John) 1 tab PO 0800 [facility] Last Admin: 05/04/17 08:42 Dose: 1 tab - Labs Labs: 05/05/17 07:02 05/05/17 07:02 PT 10.8 SECONDS (9.7-12.2) 04/28/17 16:34 INR 1.0 04/28/17 16:34 APTT 31 SECONDS (21-34) 04/28/17 16:34 - Constitutional Appears: No Acute Distress - Head Exam Head Exam: NORMAL INSPECTION - Eye Exam Eye Exam: Normal appearance - ENT Exam ENT Exam: Mucous Membranes Moist - Neck Exam Neck Exam: Full ROM. absent: Lymphadenopathy, Thyromegaly - Respiratory Exam Respiratory Exam: Clear to Ausculation Bilateral. absent: Rales, Rhonchi, Wheezes - Cardiovascular Exam Cardiovascular Exam: +S1, +S2, Murmur. absent: Gallop, REGULAR RHYTHM - GI/Abdominal Exam GI & Abdominal Exam: Soft. absent: Tenderness, Mass - Extremities Exam Extremities Exam: Full ROM, Normal Capillary Refill. absent: Calf Tenderness, Joint Swelling, Pedal Edema Assessment and Plan - Assessment and Plan (Free Text) Assessment: ESRD; Freq fall w/ unsteady gait Recentr Hypotension and nose Fx Cont meds For Subacute
[2017-05-05] MEDS: guaiFENesin 600 mg ER Tab PO SCH ×2 (10:51→13:32)
[2017-05-05] MEDS: Sevelamer Carb 0.8 gm/Packet PO SCH ×3 (10:51→17:36)
[2017-05-05] MEDS: Multivitamin Vitamin B Complex (Nephro-Vite) Tab PO SCH ×2 (10:51→13:40)
[2017-05-05] MEDS: EPOETIN ALFA 4,000 UNIT/ML ML Dialysis IV SCH (10:59)
[2017-05-05] MEDS: Paricalcitol 2 mcg/ml Inj IV SCH (11:00)
--- NOTE | 2017-05-05 19:20 | CP.PCM.PN ---
Subjective - Date & Time of Evaluation Date of Evaluation: 05/05/17 Time of Evaluation: 19:19 - Subjective Subjective: pt is seen and examined, follow up consult is dictated #[id number] s/p hd today, uf 1.5 lit Objective - Vital Signs/Intake and Output Vital Signs (last 24 hours): Temp Pulse Resp BP Pulse Ox 98.6 F 74 20 122/76 99 05/05/17 15:28 05/05/17 15:28 05/05/17 15:28 05/05/17 15:28 05/05/17 15:28 Intake and Output: 05/05/17 05/06/17 18:59 06:59 Intake Total 240 Balance 240 - Medications Medications: Current Medications Amlodipine Besylate (Norvasc) 5 mg PO DAILY [facility] Last Admin: 05/05/17 10:51 Dose: Not Given Aspirin (Ecotrin) 81 mg PO DAILY [facility] Last Admin: 05/05/17 13:34 Dose: 81 mg Carvedilol (Coreg) 12.5 mg PO BID [facility] Last Admin: 05/02/17 13:48 Dose: 12.5 mg Epoetin Neville (Procrit) [facility] Finasteride (Proscar) 5 mg PO DAILY [facility] Last Admin: 05/05/17 13:32 Dose: 5 mg Guaifenesin (Mucinex La) 600 mg PO DAILY [facility] Last Admin: 05/05/17 13:32 Dose: 600 mg Paricalcitol (Zemplar) 2 mcg IV MWF [facility] Last Admin: 05/05/17 11:00 Dose: 2 mcg Sevelamer Carbonate (Renvela) 0.8 gm PO TIDCC [facility] Last Admin: 05/05/17 17:36 Dose: 0.8 gm Vitamin B Complex/Vit C/Folic Acid (Nephro-John) 1 tab PO 0800 [facility] Last Admin: 05/05/17 13:40 Dose: 1 tab - Labs Labs: 05/05/17 07:02 05/05/17 07:02 PT 10.8 SECONDS (9.7-12.2) 04/28/17 16:34 INR 1.0 04/28/17 16:34 APTT 31 SECONDS (21-34) 04/28/17 16:34
--- NOTE | 2017-05-06 02:33 | PN ---
DATE:05/05/2017 FOLLOWUP RENAL CONSULTATION LOCATION: The patient is located in room 659, bed B. REQUESTED BY: Luis A Guthrie MD REASON FOR FOLLOWUP: End-stage renal disease, for continuation of hemodialysis. HISTORY OF PRESENT ILLNESS: Mr. 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 Denies any chest pain or palpitation. Denies any fever or cough. Denies any abdominal pain, any nausea, vomiting, diarrhea. The patient denies going to subacute rehab. The patient preferred to go home, not in distress. PHYSICAL EXAMINATION: VITAL SIGNS: As follows, blood pressure 122/76, pulse 74, respiration 20, temperature 98.6, saturation 99%. Height 5 feet 11 inches, and weight is 74.5 kg. GENERAL: On physical exam, Mr. Golden Thakkar is a 71 years elderly male, moderately built, moderate nourished, not in acute distress. HEENT: Pupils normal, reactive to light and accommodation. Conjunctivae pink. Sclerae anicteric. Tongue is moist. Trachea is midline. LUNGS: Symmetric on both sides. Bilateral breath sounds present. Clear on auscultation. CARDIOVASCULAR: [place] at the fifth intercostal space, midclavicular line. S1 and S2 audible. No murmur, no gallop. ABDOMEN: Normal in appearance. Soft, tympanic. No guarding. No rigidity. No hepatosplenomegaly. CENTRAL NERVOUS SYSTEM: The patient is alert, awake and oriented x3. Nonfocal neuro examination. Cranial nerves II through XII grossly intact. Sensory and motor system is within normal limits. EXTREMITIES: No cyanosis, no clubbing, no edema. CURRENT MEDICATIONS: Include as follows, Coreg on hold, aspirin 81 mg daily, Mucinex 600 mg p.o. daily, Nephro-John 1 tablet daily, amlodipine 5 mg p.o. daily, Procrit 4000 units 3 times a week, Proscar 5 mg p.o. daily, and Renvela 800 mg p.o. t.i.d., Zemplar 2 mcg 3 times a week. LABORATORY DATA: Include as follows, as of 05/05/2017, WBC 6, hemoglobin 11.7, hematocrit is 34.3, platelets 240. Sodium 137, potassium 4.2, chloride 94, CO2 of 28, BUN 53, creatinine 10.7, glucose 83, calcium 9.3. Total bili 0.6, AST 17, ALT 20, alkaline phosphatase 50, total protein 7.5, albumin is 3.8, and Accu-Cheks 129, 110 and 101. ASSESSMENT AND PLAN: In summary, Mr. Golden Moy is a 71 years old elderly male, moderately built, moderate nourished, with hypertension, cerebrovascular accident, end-stage renal disease, right tonsillar carcinoma, status post surgery and radiation therapy, dysarthria and occasional dysphagia and status post multiple falls. 1. End-stage renal disease. Continue hemodialysis 3 times a week, Friday, Friday and Friday. The patient underwent hemodialysis today, had ultrafiltration about 1.5 L, tolerated hemodialysis very well. 2. Hypertension. Blood pressure is stable and avoid hypotension post dialysis, and continue to hold Coreg and Norvasc dose decreased to 5 mg daily. Continue bedside physical therapy, and if the patient changes his mind, consider subacute rehab placement. We will follow with you. Thank you for allowing me to participate in your patient's care. Continue with Zemplar and Renvela. Akshat Pak MD MTDD
[2017-05-06 08:06] VITALS: RESP 20
[2017-05-06] MEDS: Multivitamin Vitamin B Complex (Nephro-Vite) Tab PO SCH (08:19)
[2017-05-06] MEDS: Sevelamer Carb 0.8 gm/Packet PO SCH ×2 (08:19→11:45)
--- NOTE | 2017-05-06 09:25 | CP.PCM.PN ---
Subjective - Date & Time of Evaluation Date of Evaluation: 05/06/17 Time of Evaluation: 09:01 - Subjective Subjective: Pt feels well; Walking around with PT Cough is much better; no more low BP episode no CP, no SOB, no edema, no palpitation Objective - Vital Signs/Intake and Output Vital Signs (last 24 hours): Temp Pulse Resp BP Pulse Ox 98.1 F 75 20 116/77 98 05/06/17 07:00 05/06/17 07:00 05/06/17 07:00 05/06/17 07:00 05/06/17 07:00 Intake and Output: 05/06/17 05/06/17 06:59 18:59 Intake Total 240 Balance 240 - Medications Medications: Current Medications Amlodipine Besylate (Norvasc) 5 mg PO DAILY [facility] Last Admin: 05/05/17 10:51 Dose: Not Given Aspirin (Ecotrin) 81 mg PO DAILY [facility] Last Admin: 05/05/17 13:34 Dose: 81 mg Carvedilol (Coreg) 12.5 mg PO BID [facility] Last Admin: 05/02/17 13:48 Dose: 12.5 mg Epoetin Neville (Procrit) 4,000 unit IV MWF [facility] Finasteride (Proscar) 5 mg PO DAILY [facility] Last Admin: 05/05/17 13:32 Dose: 5 mg Paricalcitol (Zemplar) 2 mcg IV MWF [facility] Last Admin: 05/05/17 11:00 Dose: 2 mcg Sevelamer Carbonate (Renvela) 0.8 gm PO TIDCC [facility] Last Admin: 05/06/17 08:19 Dose: 0.8 gm Vitamin B Complex/Vit C/Folic Acid (Nephro-John) 1 tab PO 0800 [facility] Last Admin: 05/06/17 08:19 Dose: 1 tab - Labs Labs: 05/05/17 07:02 05/05/17 07:02 PT 10.8 SECONDS (9.7-12.2) 04/28/17 16:34 INR 1.0 04/28/17 16:34 APTT 31 SECONDS (21-34) 04/28/17 16:34 - Constitutional Appears: No Acute Distress - Eye Exam Eye Exam: Normal appearance - ENT Exam ENT Exam: absent: Mucous Membranes Moist - Neck Exam Neck Exam: Full ROM. absent: Lymphadenopathy, Thyromegaly - Respiratory Exam Respiratory Exam: Decreased Breath Sounds. absent: Rales, Rhonchi, Wheezes - Cardiovascular Exam Cardiovascular Exam: +S1, +S2, Murmur. absent: Gallop, REGULAR RHYTHM, JVD - GI/Abdominal Exam GI & Abdominal Exam: Soft. absent: Tenderness, Mass - Extremities Exam Extremities Exam: Calf Tenderness, Full ROM, Normal Capillary Refill. absent: Joint Swelling, Pedal Edema Assessment and Plan - Assessment and Plan (Free Text) Assessment: ESRD; unsteady gait w/ Freq fall HTN; mild dementia Cont meds For discharge to [place]
[2017-05-06] MEDS ORDERED: Pneumococcal 23-Valent Vaccine IM ONE (10:05)
[2017-05-06] MEDS ORDERED: Influenza Vaccine 60 mcg/0.5 mL SYR (4YR UP) IM ONE (10:05)
--- NOTE | 2017-05-06 11:36 | VASCLAB ---
PROCEDURE: HISTORY: RECURRENT DIZZINESS; NEAR SYNCOPE COMPARISON: None available. TECHNIQUE: Grayscale and duplex Doppler evaluation of the cervical carotid and vertebral arteries were performed. The common carotid, carotid bifurcations and cervical Internal Carotid Artery (ICA) and proximal External Carotid Artery (ECA) were evaluated. The vertebral arteries were evaluated for gross patency and flow direction. Report prepared by Dioni Hickey, BS, RVT FINDINGS: RIGHT CAROTID ARTERIES: 1. Common Carotid Artery: No significant focal plaque formation of the right common carotid artery. Maximum Peak Systolic velocity: 81 cm/sec: End-diastolic velocity 19 cm/sec. 2. Carotid Bifurcation: Heterogeneous plaque formation. Maximum Peak Systolic velocity: 105 cm/sec: End-diastolic velocity 19 cm/sec. 3. Internal Carotid Artery: Minimal plaque formation of the right proximal ICA which does not result in hemodynamically significant stenosis. Plaque description: Heterogeneous 3.1. Proximal Segment: Peak systolic velocity 88 cm/sec: End-diastolic velocity 19 cm/sec - % stenosis 0-15% 3.2. Middle Segment: Peak systolic velocity 91 cm/sec: End-diastolic velocity 25 cm/sec - % stenosis 0-15% 3.3. Distal Segment: Peak systolic velocity 99 cm/sec: End-diastolic velocity 25 cm/sec - % stenosis 0-15% 4. External Carotid Artery: No significant focal plaque formation. Peak systolic velocity 125 cm/sec 5. ICA/CCA Ratio: 1.3 LEFT CAROTID ARTERIES: 1. Common Carotid Artery: No significant focal plaque formation of the left common carotid artery. Maximum Peak Systolic velocity: 87 cm/sec: End-diastolic velocity 14 cm/sec. 2. Carotid Bifurcation: Heterogeneous plaque formation. Maximum Peak Systolic velocity: 73 cm/sec: End-diastolic velocity 18 cm/sec. 3. Internal Carotid Artery: Minimal plaque formation of the left proximal ICA which does not result in hemodynamically significant stenosis. Plaque description: Heterogeneous 3.1. Proximal Segment: Peak systolic velocity 74 cm/sec: End-diastolic velocity 15 cm/sec - % stenosis 0-15% 3.2. Middle Segment: Peak systolic velocity 61 cm/sec: End-diastolic velocity 19 cm/sec - % stenosis 0-15% 3.3. Distal Segment: Peak systolic velocity 88 cm/sec: End-diastolic velocity 17 cm/sec - % stenosis 0-15% 4. External Carotid Artery: No significant focal plaque formation. Peak systolic velocity 60 cm/sec 5. ICA/CCA Ratio: 1.0 VERTEBRAL ARTERIES: 1. Right Vertebral Artery: The right vertebral artery flow direction is antegrade. 2. Left Vertebral Artery: The left vertebral artery flow direction is antegrade. OTHER FINDINGS: 1. Right Brachial Blood pressure: 108 mmHg. 2. Left Brachial Blood pressure: mmHg. IMPRESSION: RIGHT: Duplex scan does not suggest hemodynamically significant stenosis of the right extracranial carotid arteries. LEFT: Duplex scan does not suggest hemodynamically significant stenosis of the left extracranial carotid arteries.
[2017-05-06 16:02] VITALS: BP 121/78; PULSE 74; TEMP 97.9; O2SAT 100
[2017-05-07] MEDS ORDERED: EPOETIN ALFA 4,000 UNIT/ML ML Dialysis IV SCH (09:00)
--- NOTE | 2017-05-27 09:09 | CP.PCM.DIS ---
Provider - Provider Date of Admission: 04/28/17 20:42 71 y/o male with mild dentia, ESRD and HTN. Patient has pass out x 2 at least he can recall. Pt seen in ER the 1st time where he had Fx nose. he was sent home. he returned c/o another fall and was admitted. Attending physician: Kolby Guthrie MD Time Spent in preparation of Discharge (in minutes): 15 Hospital Course - Lab Results Lab Results: Most Recent Lab Values WBC 6.0 K/uL (4.8-10.8) 05/05/17 07:02 RBC 3.64 Mil/uL (4.40-5.90) L 05/05/17 07:02 Hgb 11.7 g/dL (12.0-18.0) L 05/05/17 07:02 Hct 34.3 % (35.0-51.0) L 05/05/17 07:02 MCV 94.4 fL (80.0-94.0) H 05/05/17 07:02 MCH 32.0 pg (27.0-31.0) H 05/05/17 07:02 MCHC 33.9 g/dL (33.0-37.0) 05/05/17 07:02 RDW 14.9 % (11.5-14.5) H 05/05/17 07:02 Plt Count 240 K/uL (130-400) 05/05/17 07:02 MPV 7.3 fL (7.2-11.7) 05/05/17 07:02 Neut % (Auto) 90.5 % (50.0-75.0) H 05/02/17 09:46 Lymph % (Auto) 3.5 % (20.0-40.0) L 05/02/17 09:46 [place] % (Auto) 4.0 % (0.0-10.0) 05/02/17 09:46 Eos % (Auto) 1.7 % (0.0-4.0) 05/02/17 09:46 Baso % (Auto) 0.3 % (0.0-2.0) 05/02/17 09:46 Neut # 10.7 K/uL (1.8-7.0) H 05/02/17 09:46 Lymph # 0.4 K/uL (1.0-4.3) L 05/02/17 09:46 [place] # 0.5 K/uL (0.0-0.8) 05/02/17 09:46 Eos # 0.2 K/uL (0.0-0.7) 05/02/17 09:46 Baso # 0.0 K/uL (0.0-0.2) 05/02/17 09:46 Neutrophils % (Manual) 92 % (50-75) H 05/02/17 09:46 Band Neutrophils % 1 % (0-2) 04/28/17 16:34 Lymphocytes % (Manual) 4 % (20-40) L 05/02/17 09:46 Monocytes % (Manual) 1 % (0-10) 05/02/17 09:46 Eosinophils % (Manual) 2 % (0-4) 05/02/17 09:46 Basophils % (Manual) 1 % (0-2) 05/02/17 09:46 Platelet Estimate Normal (NORMAL) 05/02/17 09:46 RBC Morphology Normal 05/02/17 09:46 Hypochromasia (manual) Slight 04/28/17 16:34 Poikilocytosis (manual Slight 04/28/17 16:34 Anisocytosis (manual) Slight 04/28/17 16:34 PT 10.8 SECONDS (9.7-12.2) 04/28/17 16:34 INR 1.0 04/28/17 16:34 APTT 31 SECONDS (21-34) 04/28/17 16:34 Sodium 137 mmol/L (132-148) 05/05/17 07:02 Potassium 4.2 mmol/L (3.6-5.2) 05/05/17 07:02 Chloride 94 mmol/L (98-107) L 05/05/17 07:02 Carbon Dioxide 28 mmol/L (22-30) 05/05/17 07:02 Anion Gap 19 (10-20) 05/05/17 07:02 BUN 53 mg/dL (9-20) H 05/05/17 07:02 Creatinine 10.7 mg/dL (0.8-1.5) H* D 05/05/17 07:02 Est GFR ( Amer) 6 05/05/17 07:02 Est GFR (Non-Af Amer) 5 05/05/17 07:02 POC Glucose (mg/dL) 96 mg/dL (65-110) 05/06/17 11:22 Random Glucose 83 mg/dL (75-110) 05/05/17 07:02 Calcium 9.3 mg/dl (8.6-10.4) 05/05/17 07:02 Phosphorus 3.6 mg/dL (2.5-4.5) 05/02/17 09:46 Total Bilirubin 0.6 mg/dL (0.2-1.3) 05/05/17 07:02 AST 17 U/L (17-59) 05/05/17 07:02 ALT 20 U/L (21-72) L D 05/05/17 07:02 Alkaline Phosphatase 50 U/L (38-126) 05/05/17 07:02 Troponin I < 0.0120 ng/mL (0.00-0.120) 04/28/17 19:00 NT-Pro-B Natriuret Pep 2110 pg/mL (0-900) H 04/28/17 16:34 Total Protein 7.5 g/dL (6.3-8.3) 05/05/17 07:02 Albumin 3.8 g/dL (3.5-5.0) 05/05/17 07:02 Globulin 3.7 gm/dL (2.2-3.9) 05/05/17 07:02 Albumin/Globulin Ratio 1.0 (1.0-2.1) 05/05/17 07:02 TSH 3rd Generation 1.26 mIU/L (0.46-4.68) 04/30/17 11:29 Hep Bs Antigen Negative (NEGATIVE) 04/30/17 11:29 - Hospital Course Hospital Course: Pt was admitted for unsteady gait and Syncope. Hw e was referred to Cardio and BP meds was adjusted. Pt during hospital stay has dysphagia but refuse thicken liquid as such he is constantly coughing. Pt had episode of hypotension after HD and pt Tx w/ supportive measure. Pt sent to Subacute markedly improve Discharge Exam - Head Exam Head Exam: NORMAL INSPECTION - Eye Exam Eye Exam: Normal appearance - ENT Exam ENT Exam: Mucous Membranes Moist - Neck Exam Neck exam: Full Rom - Respiratory Exam Respiratory Exam: Decreased Breath Sounds, Rhonchi. absent: Wheezes, Respiratory Distress - Cardiovascular Exam Cardiovascular Exam: REGULAR RHYTHM, +S1, +S2, Systolic Murmur. absent: Gallop , JVD - GI/Abdominal Exam GI & Abdominal Exam: Soft. absent: Mass, Tenderness - Extremities Exam Extremities exam: full ROM, normal capillary refill, pedal pulses present Discharge Plan - Follow Up Plan Condition: STABLE Disposition: TRANSF TO SNF Instructions: Dialysis Diet (DC), Weakness (GEN), Dizziness (GEN), End Stage Kidney Disease (DC) Referrals: Luis A Guthrie MD [Staff Provider] - Kolby Guthrie MD [Staff Provider] -
== END 2017-05-06 16:45 | DRG 312 ==
LOC: C.ER 14:12 → C.9E 18:08 → OBSVTOIN 20:42 → C.5S 04-29 02:34 → C.6T 04-30 22:35
PROVIDERS: ADMIT Internal Medicine; ATTEND Internal Medicine
PROC: 5A1D70Z Performance of Urinary Filtration, Intermittent, Less than 6 Hours Per Day (ICD-10-PCS; principal; 2017-05-02)
DX: R55 Syncope and collapse (principal); I12.0 Hypertensive chronic kidney disease with stage 5 chronic kidney disease or end stage renal disease; C14.0 Malignant neoplasm of pharynx, unspecified; E78.00 Pure hypercholesterolemia, unspecified; F41.9 Anxiety disorder, unspecified; D64.9 Anemia, unspecified; N18.6 End stage renal disease; H83.2X9 Labyrinthine dysfunction, unspecified ear; Z87.891 Personal history of nicotine dependence; Z99.2 Dependence on renal dialysis; R26.81 Unsteadiness on feet; I25.10 Atherosclerotic heart disease of native coronary artery without angina pectoris; Z86.73 Personal history of transient ischemic attack (TIA), and cerebral infarction without residual deficits; J44.9 Chronic obstructive pulmonary disease, unspecified; Z91.11 Patient's noncompliance with dietary regimen; R29.6 Repeated falls

== ENCOUNTER 2017-08-18 16:06 | Inpatient (IN) | payer MEDICARE, BC ==
[2017-08-18 16:06] VITALS: BMI 26.6
[2017-08-18] MEDS ORDERED: Albuterol 0.083% Inhal Sol (2.5 mg/3 mL) UD INH STA (17:16)
[2017-08-18] MEDS ORDERED: Albuterol 0.083% Inhal Sol (2.5 mg/3 mL) UD ONE (17:49)
[2017-08-18 17:52] LABS: BASO % 0.5 % (0.0-2.0); EOS # 0.2 K/uL (0.0-0.7); EOS % 2.9 % (0.0-4.0); LYMPH # 0.5 K/uL (1.0-4.3); LYMPH % 6.4 % (20.0-40.0); MEAN CORPUSCULAR HEMOGLOBIN 30.3 pg (27.0-31.0); MEAN PLATELET VOLUME 7.3 fL (7.2-11.7); MONO # 0.5 K/uL (0.0-0.8); MONO % 7.3 % (0.0-10.0); NEUT % 82.9 % (50.0-75.0); NRBC % 0.1 % (0.0-2.0); PLATELET COUNT 207 K/uL (130-400); RBC 3.95 Mil/uL (4.40-5.90); RED CELL DISTRIBUTION WIDTH 16.2 % (11.5-14.5); WHITE BLOOD COUNT 7.2 K/uL (4.8-10.8)
[2017-08-18 17:53] LABS: MEAN CELL VOLUME 91.8 fL (80.0-94.0)
[2017-08-18 18:01] LABS: PROTHROMBIN TIME 11.5 SECONDS (9.7-12.2)
--- NOTE | 2017-08-18 18:03 | C.PDOC ---
History Of Present Illness <Josey Godinez - Last Filed: 08/18/17 18:50> <Renita Augustine - Last Filed: 08/18/17 20:48> The patient is a 72yo male with history of throat and lung cancer, who is currently following up with Dr. Colby. Patient states he has been doing well and recently had a PET scan in June which showed no new lesions and decreased activity in his retropharyngeal area. Patient states he recently had trouble swallowing and when he did swallow, the food would go to his nose. Patient went to Dr. Colby for a follow up and was instructed to come to the ER for further evaluation. Dr. Colby is requesting the patient to have a CT of his neck, chest and abdomen. Of note, the patient is on dialysis and follows up with Dr. Soria; his last dialysis session was today. Patient denies any fever, chills, chest pain, neck pain. No other complaints. (Josey Godinez) History Per: Patient History/Exam Limitations: no limitations Onset/Duration Of Symptoms: Days Current Symptoms Are (Timing): Still Present <Josey Godinez - Last Filed: 08/18/17 18:50> <Renita Augustine - Last Filed: 08/18/17 20:48> Time Seen by Provider: 08/18/17 16:44 Chief Complaint (Nursing): Medical Clearance Past Medical History Reviewed: Historical Data, Nursing Documentation, Vital Signs - Medical History PMH: Anxiety (NO MED), Arthritis (Gout), Cardia Arrhythmia (BRADYCARDIA), Depression (NO MED), HTN, Hypercholesterolemia, End Stage Renal Disease (M/W/F) , Chronic Kidney Disease Family History: States: Unknown Family Hx - Social History Hx Tobacco Use: No Hx Alcohol Use: No Hx Substance Use: No - Immunization History Hx Tetanus Toxoid Vaccination: Yes Hx Influenza Vaccination: Yes Hx Pneumococcal Vaccination: Yes <Josey Godinez - Last Filed: 08/18/17 18:50> Vital Signs: Last Vital Signs Temp 99 F 08/18/17 20:02 Pulse 68 08/18/17 20:02 Resp 20 08/18/17 20:02 BP 132/79 08/18/17 20:02 Pulse Ox 98 08/18/17 20:02 - [facility] Procedures (04/28/17) DIALYSIS ARTERIOVENOSTOM (11/03/13) HEMODIALYSIS (11/03/13) VENOUS CATHETERIZATION FOR RENAL DIALYSIS (11/03/13) Review Of Systems Except As Marked, All Systems Reviewed And Found Negative. Constitutional: Negative for: Fever, Chills ENT: Positive for: Other (difficulty with swallowing) Cardiovascular: Negative for: Chest Pain Respiratory: Negative for: Shortness of Breath Musculoskeletal: Negative for: Neck Pain <Josey Godinez - Last Filed: 08/18/17 18:50> Physical Exam - Physical Exam Appears: Non-toxic, No Acute Distress Skin: Normal Color Head: Normacephalic Eye(s): bilateral: Normal Inspection Oral Mucosa: Moist Neck: Normal ROM, Supple Chest: Symmetrical Cardiovascular: Rhythm Regular Respiratory: Normal Breath Sounds, Other (actively coughing; mucus-like/ gargling sounds noted in throat) Gastrointestinal/Abdominal: Normal Exam, Soft, No Tenderness Extremity: Normal ROM Neurological/Psych: Oriented x3, Normal Speech, Normal Cognition <Josey Godinez - Last Filed: 08/18/17 18:50> ED Course And Treatment - Laboratory Results Result Diagrams: 08/18/17 17:47 08/18/17 17:47 O2 Sat by Pulse Oximetry: 99 (RA) Pulse Ox Interpretation: Normal Progress Note: Patient given nebulizer treatment. Labs, CXR and EKG ordered. Case discussed with Dr. Soria who is ok with CT with contrast, states he will dialize patient tomorrow. <Josey Godinez - Last Filed: 08/18/17 18:50> - Laboratory Results Result Diagrams: 08/18/17 17:47 08/18/17 17:47 Pulse Ox Interpretation: Normal <Renita Augustine - Last Filed: 08/18/17 20:48> Disposition - Disposition Disposition Time: 18:50 <Josey Godinez - Last Filed: 08/18/17 18:50> Discussed With : Luis A Guthrie Comment: accepted the pt on his service and took over the care at 8:44 PM Doctor Will See Patient In The: Hospital Counseled Patient/Family Regarding: Studies Performed, Diagnosis <Renita Augustine - Last Filed: 08/18/17 20:48> - Disposition Disposition: HOSPITALIZED Condition: FAIR Forms: [facility] (Ukrainian) - Clinical Impression Clinical Impression: Dysphagia, ESRD needing dialysis - PA / TAX PREPARER / Resident Statement MD/DO has reviewed & agrees with the documentation as recorded. - Scribe Statement The provider has reviewed the documentation as recorded by the Scribe (Yesenia Varma) <Josey Godinez - Last Filed: 08/18/17 18:50> <Renita Augustine - Last Filed: 08/18/17 20:48> - Scribe Statement Provider Attestation: All medical record entries made by the Scribe were at my direction and personally dictated by me. I have reviewed the chart and agree that the record accurately reflects my personal performance of the history, physical exam, medical decision making, and the department course for this patient. I have also personally directed, reviewed, and agree with the discharge instructions and disposition. (Josey Godinez) Physician Patient Turnover Patient Signed Over To: Renita Augustine Handoff Comments: Pending CT studies and admission under Dr. Farrukh Guthrie <Josey Godinez - Last Filed: 08/18/17 18:50> Decision To Admit <Josey Godinez - Last Filed: 08/18/17 18:50> - Pt Status Changed To: Hospital Disposition Of: Inpatient - Admit Certification Admit to Inpatient:: After my assessment, the patient will require hospitalization for at least two midnights. This is because of the severity of symptoms shown, intensity of services needed, and/or the medical risk in this patient being treated as an outpatient. - InPatient: Physician Admission Certification: I certify that this patient requires 2 or more midnights of care for the following reason:: After my assessment, the patient will require hospitalization for at least two midnights. This is because of the severity of symptoms shown, intensity of services needed, and/or the medical risk in this patient being treated as an outpatient. - . Bed Request Type: Regular Admitting Physician: Luis A Guthrie <Renita Augustine - Last Filed: 08/18/17 20:48> - . Patient Diagnosis: Dysphagia, ESRD needing dialysis
[2017-08-18 18:04] LABS: ALB/GLOB RATIO 1.1 (1.0-2.1); ALBUMIN 4.4 g/dL (3.5-5.0); CALCIUM 9.7 mg/dl (8.6-10.4)
[2017-08-18] MEDS ORDERED: Iodixanol 320 mg/ml 150 ml Bottle IV ONE (18:32)
--- NOTE | 2017-08-18 19:32 | CP.PCM.CON ---
History of Present Illness - History of Present Illness History of Present Illness: pt is seen and examined, full consult is dictated #[id number] Past Patient History - Infectious Disease Hx of Infectious Diseases: None - Past Medical History & Family History Past Medical History?: Yes - Past Social History Smoking Status: Former Smoker - CARDIAC Hx Cardia Arrhythmia: Yes (BRADYCARDIA) Hx Hypercholesterolemia: Yes Hx Hypertension: Yes - PULMONARY Hx Respiratory Disorders: No - NEUROLOGICAL Hx Neurological Disorder: No - HEENT Hx HEENT Problems: Yes Other/Comment: DIFFICULTY OF SWALLOWING - RENAL Hx Chronic Kidney Disease: Yes - ENDOCRINE/METABOLIC Hx Endocrine Disorders: No - HEMATOLOGICAL/ONCOLOGICAL Hx Blood Disorders: Yes Hx Cancer: Yes (THROAT SURGERY RADIATION) Other/Comment: hx of throat CA - INTEGUMENTARY Hx Dermatological Problems: No - MUSCULOSKELETAL/RHEUMATOLOGICAL Hx Arthritis: Yes (Gout) - GASTROINTESTINAL Hx Gastrointestinal Disorders: No - GENITOURINARY/GYNECOLOGICAL Hx Genitourinary Disorders: No - PSYCHIATRIC Hx Anxiety: Yes (NO MED) Hx Depression: Yes (NO MED) Hx Substance Use: No - SURGICAL HISTORY Hx Arteriovenous Shunt: Yes Hx Herniorrhaphy: Yes Other/Comment: RT LYMPH NODE SURGERY. insertion and removal or portacath. - ANESTHESIA Hx Anesthesia: Yes Hx Anesthesia Reactions: No Hx Malignant Hyperthermia: No Meds Allergies/Adverse Reactions: Allergies Allergy/AdvReac Type Severity Reaction Status Date / Time No Known Allergies Allergy Verified 08/18/17 16:20 Results - Vital Signs Recent Vital Signs: Last Vital Signs Temp 98.5 F 08/18/17 16:20 Pulse 81 08/18/17 16:20 Resp 18 08/18/17 16:20 BP 124/78 08/18/17 16:20 Pulse Ox 99 08/18/17 18:51 - Labs Result Diagrams: 08/18/17 17:47 08/18/17 17:47 Labs: Laboratory Results - last 24 hr 08/18/17 08/18/17 08/18/17 17:47 17:47 17:47 WBC 7.2 RBC 3.95 L Hgb 12.0 Hct 36.3 MCV 91.8 D MCH 30.3 MCHC 33.0 RDW 16.2 H Plt Count 207 MPV 7.3 Neut % (Auto) 82.9 H Lymph % (Auto) 6.4 L [place] % (Auto) 7.3 Eos % (Auto) 2.9 Baso % (Auto) 0.5 Neut # (Auto) 6.0 Lymph # (Auto) 0.5 L [place] # (Auto) 0.5 Eos # (Auto) 0.2 Baso # (Auto) 0.0 PT 11.5 INR 1.0 APTT 28 Sodium 144 Potassium 4.4 Chloride 93 L Carbon Dioxide 33 H Anion Gap 23 H BUN 37 H Creatinine 7.0 H Est GFR ( Amer) 9 Est GFR (Non-Af Amer) 8 Random Glucose 98 Calcium 9.7 Total Bilirubin 0.6 AST 18 ALT 17 L Alkaline Phosphatase 61 Total Protein 8.6 H Albumin 4.4 Globulin 4.2 H Albumin/Globulin Ratio 1.1
--- NOTE | 2017-08-18 20:14 | CT ---
EXAM: CT Neck With Intravenous Contrast EXAM DATE/TIME: Exam ordered 08/18/2017 5:40 PM CLINICAL HISTORY: 72 years old, male; Condition or disease; Cancer; Parathyroid; Additional info: Difficulty swalowing; H/o throat and lung ca TECHNIQUE: Axial computed tomography images of the neck with intravenous contrast. All CT scans at this facility use one or more dose reduction techniques, viz.: automated exposure control; ma/kV adjustment per patient size (including targeted exams where dose is matched to indication; i.e. head); or iterative reconstruction technique. Coronal and sagittal reformatted images were created and reviewed. CONTRAST: 70 mL of VISIPAQUE 320 administered intravenously. COMPARISON: No relevant prior studies available. FINDINGS: Nasopharynx: There is leftward deviation of the nasal septum. Oropharynx: There is asymmetric thickening of the right lateral oropharyngeal wall. There is loss of the normal fat planes surrounding the right carotid space. The carotid structures appear displaced laterally. There is a heterogeneous low density soft tissue mass displacing the carotid sheath structures anteriorly and to the right. This mass measures 3.3 x 1.4 by 3.8 cm. There is effacement of the right pyriform sinus and mass effect upon the right lateral margin of the suprahyoid and infrahyoid airway. No significant tonsillar enlargement. Hypopharynx: Unremarkable. Larynx: Asymmetric soft tissue thickening extends down to the larynx with displacement of the airway towards the left down to the level of the true cords.. Normal epiglottis. Trachea: Unremarkable. Retropharyngeal space: Unremarkable. Submandibular/parotid glands: The submandibular glands appear atrophic. Thyroid: A 1.9 cm heterogeneous nodule is noted in the lower pole of the left lobe of the thyroid. This could also represent several adjacent nodules. Bones/joints: Degenerative changes are noted of the mid and lower cervical spine with disc space narrowing and marginal osteophyte formation and foraminal stenosis at C5-6 and C6-7. No acute fracture. Soft tissues: The parapharyngeal fat is displaced anteriorly. There is skin thickening overlying the right parotid and right submandibular region. Vasculature: The right internal jugular vein is markedly narrowed by mass effect from the adjacentmass. The right cervical internal carotid artery is narrowed circumferentially by the soft tissue mass/soft tissue thickening involving the right carotid sheath Lymph nodes: Unremarkable. No lymphadenopathy. Sinuses: Mucosal thickening is noted within the right maxillary sinus. Lung apices: There is thickening of the interlobular septa at the lung apices bilaterally. IMPRESSION: 1. Necrotic soft tissue mass noted involving the right mucosal space and carotid sheath structures. Mass effect upon the adjacent airway extending from the oropharynx superiorly to the level of the right true cord inferiorly. 2. Circumferential narrowing and displacement of the right cervical internal carotid artery. Marked narrowing of the right internal jugular vein. 3. Mucosal thickening in the right maxillary sinus. 4. Nodule in the left lobe of the thyroid. Recommend further evaluation with thyroid ultrasound.
[2017-08-18 20:18] LABS: EOSINOPHIL 2 % (0-4); LYMPHOCYTE 9 % (20-40); MONOCYTE 8 % (0-10); NEUTROPHIL 81 % (50-75); PLATELET ESTIMATE NORMAL (NORMAL); TOTAL CELLS COUNTED 100
--- NOTE | 2017-08-18 20:40 | CT ---
EXAM: CT Abdomen and Pelvis With Intravenous Contrast CLINICAL HISTORY: 72 years old, male; Condition or disease; Other: Pain; Lung condition and disease; Airway obstruction; Type not specified; Additional info: Difficulty swallowing, h/o throat and lung ca TECHNIQUE: Axial computed tomography images of the abdomen and pelvis with intravenous contrast. All CT scans at this facility use one or more dose reduction techniques, viz.: automated exposure control; ma/kV adjustment per patient size (including targeted exams where dose is matched to indication; i.e. head); or iterative reconstruction technique. Coronal and sagittal reformatted images were created and reviewed. CONTRAST: 80 mL of VISIPAQUE 320 administered intravenously. COMPARISON: No relevant prior studies available. FINDINGS: Lower thorax: No acute findings. ABDOMEN: Liver: The liver measures 17.5 cm in craniocaudal span. Gallbladder and bile ducts: Unremarkable. No calcified stones. No ductal dilation. Pancreas: Unremarkable. No mass. No ductal dilation. Spleen: Unremarkable. No splenomegaly. Adrenals: Unremarkable. No mass. Kidneys and ureters: The kidneys are relatively atrophic , right side greater than left. Numerous low density lesions are seen in the left kidney. All are simple cysts except for a 1 cm hyperdense mass in the lower pole of the left kidney. There are numerous right-sided renal cysts. A 1.5 cm hyperdense/enhancing mass is noted in the upper pole of the right kidney laterally. No hydronephrosis. Stomach and bowel: There is a generalized colonic diverticulosis. No obstruction. No mucosal thickening. Appendix: No findings to suggest acute appendicitis. Not seen as a separate structure. PELVIS: Bladder: Unremarkable. No mass. Reproductive: The prostate measures 3.6 x 4.9 by 3.5 cm. ABDOMEN and PELVIS: Intraperitoneal space: Unremarkable. No free air. No significant fluid collection. Bones/joints: Degenerative changes are noted of the lumbar spine. The the. No dislocation. Soft tissues: Unremarkable. 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 Lymph nodes: Unremarkable. No enlarged lymph nodes. IMPRESSION: 1. Bilateral hyperdense or enhancing renal masses. A 1.5 cm renal mass on the right. A 1 cm mass on the left. MRI or dedicated renal CT might be helpful. 2. Colonic diverticulosis. 3. Hepatomegaly. 4. There is aneurysmal dilatation of the common iliac arteries bilaterally EXAM: CT Chest With Intravenous Contrast EXAM DATE/TIME: Exam ordered 08/18/2017 5:28 PM CLINICAL HISTORY: 72 years old, male; Condition or disease; Other: Pain; Lung condition and disease; Airway obstruction; Type not specified; Additional info: Difficulty swallowing, h/o throat and lung ca The TECHNIQUE: Axial computed tomography images of the chest with intravenous contrast. All CT scans at this facility use one or more dose reduction techniques, viz.: automated exposure control; ma/kV adjustment per patient size (including targeted exams where dose is matched to indication; i.e. head); or iterative reconstruction technique. Coronal and sagittal reformatted images were created and reviewed. CONTRAST: 80 mL of VISIPAQUE 320 administered intravenously. COMPARISON: No relevant prior studies available. FINDINGS: Lungs: There is thickening of the interlobular septa at the lung apices. Coarse linear opacities at both lung bases suggests discoid atelectasis/scar. Pleural space: Unremarkable. No pneumothorax. No significant effusion. Heart: Unremarkable. No cardiomegaly. No significant pericardial effusion. Mediastinum: Thickening is suggested of the mid esophagus. Thyroid: A multiloculated cystic or several adjacent nodules with a combined diameter of approximately 1.8 cm is noted in the lower pole left lobe thyroid. Bones/joints: Unremarkable. No acute fracture. No dislocation. Soft tissues: Unremarkable. Vasculature: The ascending thoracic aorta measures 4.7 cm in maximum diameter. No thoracic aortic aneurysm. Lymph nodes: Unremarkable. No enlarged lymph nodes. IMPRESSION: 1. Discoid atelectasis or scar at the lung bases. 2. Thickening suggested of the mid esophagus. Esophagitis is among the diagnostic considerations. 3. Left thyroid nodule or nodules. Recommend further evaluation with thyroid ultrasound. 4. Aneurysmal dilatation of the ascending thoracic aorta with a maximum diameter 4.7 cm.
--- NOTE | 2017-08-18 21:50 | CP.PCM.CON ---
History of Present Illness - History of Present Illness History of Present Illness: Surgery: Dr. Canales Pt is a 72M with PMHx significant for ESRD on HD (M,W,F), HTN & throat cancer for which he has had surgery and radiation at [facility] in the past. Pt and sister present at bedside, do not recall what type of cancer he was diagnosed with. Sister states that for the past few months, he hasn't been eating solid food and instead has been requesting shakes/smoothies which are easier for him to swallow. However, over the last few weeks he has been complaining that even the pureed food is coming back up after a while. Pt states he has lost a considerable amount of weight due to his decreased PO intake. Of note pt has been admitted to for falls in the past and even during those admissions had complaints of dysphagia. Back in 12/23 pt had an EGD by Dr. Vides which was negative for any malignant pathology. At this time, pt and his sister are considering the idea of a feeding tube since he has been unable to fully tolerate PO intake, and therefore surgery called to evaluate. Review of Systems - Review of Systems All systems: reviewed and no additional remarkable complaints except (as per HPI ) Past Patient History - Infectious Disease Hx of Infectious Diseases: None - Past Medical History & Family History Past Medical History?: Yes - Past Social History Smoking Status: Former Smoker - CARDIAC Hx Cardia Arrhythmia: Yes (BRADYCARDIA) Hx Hypercholesterolemia: Yes Hx Hypertension: Yes - PULMONARY Hx Respiratory Disorders: No - NEUROLOGICAL Hx Neurological Disorder: No - HEENT Hx HEENT Problems: Yes Other/Comment: DIFFICULTY OF SWALLOWING - RENAL Hx Chronic Kidney Disease: Yes - ENDOCRINE/METABOLIC Hx Endocrine Disorders: No - HEMATOLOGICAL/ONCOLOGICAL Hx Blood Disorders: Yes Hx Cancer: Yes (THROAT SURGERY RADIATION) Other/Comment: hx of throat CA - INTEGUMENTARY Hx Dermatological Problems: No - MUSCULOSKELETAL/RHEUMATOLOGICAL Hx Arthritis: Yes (Gout) - GASTROINTESTINAL Hx Gastrointestinal Disorders: No - GENITOURINARY/GYNECOLOGICAL Hx Genitourinary Disorders: No - PSYCHIATRIC Hx Anxiety: Yes (NO MED) Hx Depression: Yes (NO MED) Hx Substance Use: No - SURGICAL HISTORY Hx Arteriovenous Shunt: Yes Hx Herniorrhaphy: Yes Other/Comment: RT LYMPH NODE SURGERY. insertion and removal or portacath. - ANESTHESIA Hx Anesthesia: Yes Hx Anesthesia Reactions: No Hx Malignant Hyperthermia: No Meds Allergies/Adverse Reactions: Allergies Allergy/AdvReac Type Severity Reaction Status Date / Time No Known Allergies Allergy Verified 08/18/17 16:20 Physical Exam - Constitutional Appears: No Acute Distress - ENT Exam ENT Exam: Mucous Membranes Moist - Respiratory Exam Respiratory Exam: NORMAL BREATHING PATTERN - Cardiovascular Exam Cardiovascular Exam: RRR - GI/Abdominal Exam GI & Abdominal Exam: Soft. absent: Distended, Guarding - Neurological Exam Neurological exam: Alert, Oriented x3 - Skin Skin Exam: Dry, Warm Results - Vital Signs Recent Vital Signs: Last Vital Signs Temp 98.9 F 08/18/17 21:28 Pulse 88 08/18/17 21:28 Resp 22 08/18/17 21:28 BP 132/94 H 08/18/17 21:28 Pulse Ox 98 08/18/17 21:28 - Labs Result Diagrams: 08/18/17 17:47 08/18/17 17:47 Labs: Laboratory Results - last 24 hr 08/18/17 08/18/17 08/18/17 17:47 17:47 17:47 WBC 7.2 RBC 3.95 L Hgb 12.0 Hct 36.3 MCV 91.8 D MCH 30.3 MCHC 33.0 RDW 16.2 H Plt Count 207 MPV 7.3 Neut % (Auto) 82.9 H Lymph % (Auto) 6.4 L [place] % (Auto) 7.3 Eos % (Auto) 2.9 Baso % (Auto) 0.5 Neut # (Auto) 6.0 Lymph # (Auto) 0.5 L [place] # (Auto) 0.5 Eos # (Auto) 0.2 Baso # (Auto) 0.0 Neutrophils % (Manual) 81 H Lymphocytes % (Manual) 9 L Monocytes % (Manual) 8 Eosinophils % (Manual) 2 Platelet Estimate Normal PT 11.5 INR 1.0 APTT 28 Sodium 144 Potassium 4.4 Chloride 93 L Carbon Dioxide 33 H Anion Gap 23 H BUN 37 H Creatinine 7.0 H Est GFR ( Amer) 9 Est GFR (Non-Af Amer) 8 Random Glucose 98 Calcium 9.7 Total Bilirubin 0.6 AST 18 ALT 17 L Alkaline Phosphatase 61 Troponin I Total Protein 8.6 H Albumin 4.4 Globulin 4.2 H Albumin/Globulin Ratio 1.1 08/18/17 17:47 WBC RBC Hgb Hct MCV MCH MCHC RDW Plt Count MPV Neut % (Auto) Lymph % (Auto) [place] % (Auto) Eos % (Auto) Baso % (Auto) Neut # (Auto) Lymph # (Auto) [place] # (Auto) Eos # (Auto) Baso # (Auto) Neutrophils % (Manual) Lymphocytes % (Manual) Monocytes % (Manual) Eosinophils % (Manual) Platelet Estimate PT INR APTT Sodium Potassium Chloride Carbon Dioxide Anion Gap BUN Creatinine Est GFR ( Amer) Est GFR (Non-Af Amer) Random Glucose Calcium Total Bilirubin AST ALT Alkaline Phosphatase Troponin I 0.0130 Total Protein Albumin Globulin Albumin/Globulin Ratio - Imaging and Cardiology CT scan - abdomen Status: Image reviewed by me, Report reviewed by me Assessment & Plan - Assessment and Plan (Free Text) Assessment: 72M with dysphagia Plan: - f/u CT head/neck - GI eval for possible PEG tube placement if no obstructing lesions found pending CT - d/w Dr. Parker Horne, PGY-3
--- NOTE | 2017-08-19 08:29 | CP.PCM.CON ---
History of Present Illness - History of Present Illness History of Present Illness: ASked to see pt for dysphagia. PMH: ENT CA, ESRD, HD Reports dysphagia x months- worse x 1 month. Worse with solids, but liquds regurge. Reports 25 wt loss. Review of Systems - Constitutional Constitutional: Anorexia, Fatigue, Weight Loss. absent: Fever, Headache - EENT Eyes: absent: Photophobia - Cardiovascular Cardiovascular: absent: Dyspnea, Palpitations - Respiratory Respiratory: absent: Cough, Hemoptysis, Wheezing - Gastrointestinal Gastrointestinal: Dysphagia. absent: Abdominal Pain, Coffee Ground Emesis, Diarrhea, Hematemesis, Hematochezia, Loose Stools, Melena, Vomiting - Musculoskeletal Musculoskeletal: absent: Myalgias - Integumentary Integumentary: absent: Jaundice - Neurological Neurological: Syncope. absent: Convulsions - Psychiatric Psychiatric: absent: Hallucinations - Endocrine Endocrine: absent: [place] Past Patient History - Infectious Disease Hx of Infectious Diseases: None - Past Medical History & Family History Past Medical History?: Yes - Past Social History Smoking Status: Former Smoker - CARDIAC Hx Cardia Arrhythmia: Yes (BRADYCARDIA) Hx Hypercholesterolemia: Yes Hx Hypertension: Yes - PULMONARY Hx Respiratory Disorders: No - NEUROLOGICAL Hx Neurological Disorder: No - HEENT Hx HEENT Problems: Yes Other/Comment: DIFFICULTY OF SWALLOWING - RENAL Hx Chronic Kidney Disease: Yes - ENDOCRINE/METABOLIC Hx Endocrine Disorders: No - HEMATOLOGICAL/ONCOLOGICAL Hx Blood Disorders: Yes Hx Cancer: Yes (THROAT SURGERY RADIATION) Other/Comment: hx of throat CA - INTEGUMENTARY Hx Dermatological Problems: No - MUSCULOSKELETAL/RHEUMATOLOGICAL Hx Arthritis: Yes (Gout) - GASTROINTESTINAL Hx Gastrointestinal Disorders: No - GENITOURINARY/GYNECOLOGICAL Hx Genitourinary Disorders: No - PSYCHIATRIC Hx Anxiety: Yes (NO MED) Hx Depression: Yes (NO MED) Hx Substance Use: No - SURGICAL HISTORY Hx Arteriovenous Shunt: Yes Hx Herniorrhaphy: Yes Other/Comment: RT LYMPH NODE SURGERY. insertion and removal or portacath. - ANESTHESIA Hx Anesthesia: Yes Hx Anesthesia Reactions: No Hx Malignant Hyperthermia: No Meds Allergies/Adverse Reactions: Allergies Allergy/AdvReac Type Severity Reaction Status Date / Time No Known Allergies Allergy Verified 08/18/17 16:20 Physical Exam - Constitutional Appears: Non-toxic, Cachectic, Chronically Ill - Neck Exam Additional comments: fullness right neck - Respiratory Exam Respiratory Exam: Clear to Auscultation Bilateral - Cardiovascular Exam Cardiovascular Exam: RRR - GI/Abdominal Exam GI & Abdominal Exam: Normal Bowel Sounds, Soft. absent: Distended, Firm, Guarding, Mass, Rebound, Tenderness Additional comments: + ML scar - Extremities Exam Extremities exam: Negative for: calf tenderness - Neurological Exam Neurological exam: Alert, Oriented x3 Results - Vital Signs Recent Vital Signs: Last Vital Signs Temp 97.8 F 08/19/17 07:57 Pulse 66 08/19/17 07:57 Resp 18 08/19/17 07:57 BP 146/90 08/19/17 07:57 Pulse Ox 97 08/19/17 07:57 - Labs Result Diagrams: 08/18/17 17:47 08/18/17 17:47 Labs: Laboratory Results - last 24 hr 08/18/17 08/18/17 08/18/17 17:47 17:47 17:47 WBC 7.2 RBC 3.95 L Hgb 12.0 Hct 36.3 MCV 91.8 D MCH 30.3 MCHC 33.0 RDW 16.2 H Plt Count 207 MPV 7.3 Neut % (Auto) 82.9 H Lymph % (Auto) 6.4 L [place] % (Auto) 7.3 Eos % (Auto) 2.9 Baso % (Auto) 0.5 Neut # (Auto) 6.0 Lymph # (Auto) 0.5 L [place] # (Auto) 0.5 Eos # (Auto) 0.2 Baso # (Auto) 0.0 Neutrophils % (Manual) 81 H Lymphocytes % (Manual) 9 L Monocytes % (Manual) 8 Eosinophils % (Manual) 2 Platelet Estimate Normal PT 11.5 INR 1.0 APTT 28 Sodium 144 Potassium 4.4 Chloride 93 L Carbon Dioxide 33 H Anion Gap 23 H BUN 37 H Creatinine 7.0 H Est GFR ( Amer) 9 Est GFR (Non-Af Amer) 8 Random Glucose 98 Calcium 9.7 Total Bilirubin 0.6 AST 18 ALT 17 L Alkaline Phosphatase 61 Troponin I Total Protein 8.6 H Albumin 4.4 Globulin 4.2 H Albumin/Globulin Ratio 1.1 08/18/17 17:47 WBC RBC Hgb Hct MCV MCH MCHC RDW Plt Count MPV Neut % (Auto) Lymph % (Auto) [place] % (Auto) Eos % (Auto) Baso % (Auto) Neut # (Auto) Lymph # (Auto) [place] # (Auto) Eos # (Auto) Baso # (Auto) Neutrophils % (Manual) Lymphocytes % (Manual) Monocytes % (Manual) Eosinophils % (Manual) Platelet Estimate PT INR APTT Sodium Potassium Chloride Carbon Dioxide Anion Gap BUN Creatinine Est GFR ( Amer) Est GFR (Non-Af Amer) Random Glucose Calcium Total Bilirubin AST ALT Alkaline Phosphatase Troponin I 0.0130 Total Protein Albumin Globulin Albumin/Globulin Ratio Assessment & Plan (1) Cancer of neck Assessment and Plan: CT now shows soft tissue neck mass. These findings, and h/o ENT CA, would make a PEG difficult. Also, with recurrent cancer, we need to concer the prognosis, treatment plans and if PEG benefits outweigh the risks.. Recommend surgery and Oncology follow up. Status: Acute (2) Dysphagia Assessment and Plan: Due to ENT CA. Now with soft tissue mass. Discusse with speech therapy, Dr Guthrie, patient and sister. Status: Acute (3) Dizziness Status: Acute (4) ESRD (end stage renal disease) on dialysis Status: Acute (5) Hypertension Status: Acute
--- NOTE | 2017-08-19 08:32 | CP.PCM.HP ---
History of Present Illness - History of Present Illness History of Present Illness: CC: " Unable to eat" 72 y/o male with ESRD, HTN, throat cancer and s/p surgery. Patient on 05/2017, had dyspahgia and aspiration. he however refuse PEG placement. Patient unable to eat well x 2 months. He would drink liquid and back flow through his nose. he was seen c/o Dr Colby and advise ER. In ER his CT showed (+) necrotic mass w/ obstruction on throat. Present on Admission - Present on Admission Any Indicators Present on Admission: Yes History of DVT/PE: No History of Uncontrolled Diabetes: No Urinary Catheter: No Decubitus Ulcer Present: No Review of Systems - Review of Systems Systems not reviewed;Unavailable: Acuity of Condition - Constitutional Constitutional: Lethargy, Weight Loss, Weakness. absent: Anorexia, Chills, Daytime Sleepiness, Excessive Sweating - EENT Eyes: absent: Loss of Peripheral Vision, Requires Corrective Lenses, Sees Flashes, Other Visual Disturbances Ears: absent: Ear Discharge, Ear Pain, Disequilibrium, Dizziness Nose/Mouth/Throat: Dysphagia, Odynophagia, Neck Pain. absent: Nasal Congestion , Nose Pain, Bleeding Gums, Sore Throat, Tongue Swelling, Facial Pain - Cardiovascular Cardiovascular: absent: Chest Pain, Diaphoresis, Leg Edema, Palpitations, Pedal Edema - Respiratory Respiratory: Cough. absent: Dyspnea, Hemoptysis, Dyspnea on Exertion, Chest Congestion - Gastrointestinal Gastrointestinal: absent: Bloating, Coffee Ground Emesis, Dysphagia, Heartburn, Hematochezia - Musculoskeletal Musculoskeletal: Muscle Weakness. absent: Back Pain, Loss of Height, Myalgias, Numbness, Stiffness - Integumentary Integumentary: absent: Dry Skin, Rash, Striae, Unusual Bruising - Neurological Neurological: absent: Abnormal Hearing, Radicular Pain, Vertigo, Weakness - Hematologic/Lymphatic Hematologic: absent: Easy Bleeding, Easy Bruising, Lymphadenopathy Past Patient History - Infectious Disease Hx of Infectious Diseases: None - Past Medical History & Family History Past Medical History?: Yes - Past Social History Smoking Status: Former Smoker - CARDIAC Hx Cardia Arrhythmia: Yes (BRADYCARDIA) Hx Hypercholesterolemia: Yes Hx Hypertension: Yes - PULMONARY Hx Respiratory Disorders: No - NEUROLOGICAL Hx Neurological Disorder: No - HEENT Hx HEENT Problems: Yes Other/Comment: DIFFICULTY OF SWALLOWING - RENAL Hx Chronic Kidney Disease: Yes - ENDOCRINE/METABOLIC Hx Endocrine Disorders: No - HEMATOLOGICAL/ONCOLOGICAL Hx Blood Disorders: Yes Hx Cancer: Yes (THROAT SURGERY RADIATION) Other/Comment: hx of throat CA - INTEGUMENTARY Hx Dermatological Problems: No - MUSCULOSKELETAL/RHEUMATOLOGICAL Hx Arthritis: Yes (Gout) - GASTROINTESTINAL Hx Gastrointestinal Disorders: No - GENITOURINARY/GYNECOLOGICAL Hx Genitourinary Disorders: No - PSYCHIATRIC Hx Anxiety: Yes (NO MED) Hx Depression: Yes (NO MED) Hx Substance Use: No - SURGICAL HISTORY Hx Arteriovenous Shunt: Yes Hx Herniorrhaphy: Yes Other/Comment: RT LYMPH NODE SURGERY. insertion and removal or portacath. - ANESTHESIA Hx Anesthesia: Yes Hx Anesthesia Reactions: No Hx Malignant Hyperthermia: No Meds Allergies/Adverse Reactions: Allergies Allergy/AdvReac Type Severity Reaction Status Date / Time No Known Allergies Allergy Verified 08/18/17 16:20 Physical Exam - Constitutional Appears: No Acute Distress - Eye Exam Eye Exam: Normal appearance - ENT Exam ENT Exam: Mucous Membranes Dry - Neck Exam Neck exam: Positive for: Full Rom. Negative for: Lymphadenopathy, Thyromegaly - Respiratory Exam Respiratory Exam: Decreased Breath Sounds. absent: Rales, Rhonchi, Wheezes - Cardiovascular Exam Cardiovascular Exam: REGULAR RHYTHM, +S1, +S2, Systolic Murmur. absent: Gallop , JVD - Extremities Exam Extremities exam: Positive for: full ROM, normal capillary refill. Negative for : calf tenderness, joint swelling, pedal edema Results - Vital Signs Recent Vital Signs: Last Vital Signs Temp 97.8 F 08/19/17 07:57 Pulse 66 08/19/17 07:57 Resp 18 08/19/17 07:57 BP 146/90 08/19/17 07:57 Pulse Ox 97 08/19/17 07:57 - Labs Result Diagrams: 08/18/17 17:47 08/18/17 17:47 Labs: Laboratory Results - last 24 hr 08/18/17 08/18/17 08/18/17 17:47 17:47 17:47 WBC 7.2 RBC 3.95 L Hgb 12.0 Hct 36.3 MCV 91.8 D MCH 30.3 MCHC 33.0 RDW 16.2 H Plt Count 207 MPV 7.3 Neut % (Auto) 82.9 H Lymph % (Auto) 6.4 L [place] % (Auto) 7.3 Eos % (Auto) 2.9 Baso % (Auto) 0.5 Neut # (Auto) 6.0 Lymph # (Auto) 0.5 L [place] # (Auto) 0.5 Eos # (Auto) 0.2 Baso # (Auto) 0.0 Neutrophils % (Manual) 81 H Lymphocytes % (Manual) 9 L Monocytes % (Manual) 8 Eosinophils % (Manual) 2 Platelet Estimate Normal PT 11.5 INR 1.0 APTT 28 Sodium 144 Potassium 4.4 Chloride 93 L Carbon Dioxide 33 H Anion Gap 23 H BUN 37 H Creatinine 7.0 H Est GFR ( Amer) 9 Est GFR (Non-Af Amer) 8 Random Glucose 98 Calcium 9.7 Total Bilirubin 0.6 AST 18 ALT 17 L Alkaline Phosphatase 61 Troponin I Total Protein 8.6 H Albumin 4.4 Globulin 4.2 H Albumin/Globulin Ratio 1.1 08/18/17 17:47 WBC RBC Hgb Hct MCV MCH MCHC RDW Plt Count MPV Neut % (Auto) Lymph % (Auto) [place] % (Auto) Eos % (Auto) Baso % (Auto) Neut # (Auto) Lymph # (Auto) [place] # (Auto) Eos # (Auto) Baso # (Auto) Neutrophils % (Manual) Lymphocytes % (Manual) Monocytes % (Manual) Eosinophils % (Manual) Platelet Estimate PT INR APTT Sodium Potassium Chloride Carbon Dioxide Anion Gap BUN Creatinine Est GFR ( Amer) Est GFR (Non-Af Amer) Random Glucose Calcium Total Bilirubin AST ALT Alkaline Phosphatase Troponin I 0.0130 Total Protein Albumin Globulin Albumin/Globulin Ratio Assessment & Plan - Assessment and Plan (Free Text) Assessment: Dysphagia 2 recurrent throat cancer ESRD, HTN Discuss CT and technically difficult PEG placement. Await Oncology opinion c/o ? radiation. Supportive care and discuss DNR
--- NOTE | 2017-08-19 11:10 | PCM.IRP ---
History of Present Illness - History of Present Illness History of Present Illness: IR requested to evaluate Mr. Franks for percutaneous gastrostomy tube. CT scan reviewed. The stomach is high and there is no safe percutaneous approach for gastrostomy tube placement. Objective - Vital Signs/Intake and Output Vital Signs (last 24 hours): Vital Signs - 24 hr 08/18/17 08/18/17 08/18/17 16:20 18:51 20:02 Temperature 98.5 F 99 F Pulse Rate 81 68 Respiratory 18 20 Rate Blood Pressure 124/78 132/79 O2 Sat by Pulse 99 99 98 Oximetry 08/18/17 08/18/17 08/18/17 21:28 21:47 23:40 Temperature 98.9 F 97.9 F 97.8 F Pulse Rate 88 67 76 Respiratory 22 18 20 Rate Blood Pressure 132/94 H 156/92 H 132/64 O2 Sat by Pulse 98 95 98 Oximetry 08/19/17 07:57 Temperature 97.8 F Pulse Rate 66 Respiratory 18 Rate Blood Pressure 146/90 O2 Sat by Pulse 97 Oximetry Intake and Output (last 12 hours): Intake & Output 08/18/17 08/19/17 08/19/17 18:59 06:59 18:59 Intake Total 0 Balance 0 Weight 163 lb Intake: Intake, IV Amount 0 Right Antecubital 0 Oral 0 Other: # Voids Urine, Voided 2 - Medications Medications: Current Medications Albuterol/Ipratropium (Duoneb 3 Mg/0.5 Mg (3 Ml) Ud) 3 ml INH RQ6 PRN PRN Reason: Cough and congestion Famotidine (Pepcid) 20 mg IVP DAILY [facility] Last Admin: 08/19/17 10:49 Dose: 20 mg Nitroglycerin (Nitro-Dur 0.1 Mg/Hr Patch) 1 patch TD DAILY [facility] - Labs Labs (last 24 hours): Laboratory Results - last 24 hr 08/18/17 08/18/17 08/18/17 17:47 17:47 17:47 WBC 7.2 RBC 3.95 L Hgb 12.0 Hct 36.3 MCV 91.8 D MCH 30.3 MCHC 33.0 RDW 16.2 H Plt Count 207 MPV 7.3 Neut % (Auto) 82.9 H Lymph % (Auto) 6.4 L [place] % (Auto) 7.3 Eos % (Auto) 2.9 Baso % (Auto) 0.5 Neut # (Auto) 6.0 Lymph # (Auto) 0.5 L [place] # (Auto) 0.5 Eos # (Auto) 0.2 Baso # (Auto) 0.0 Neutrophils % (Manual) 81 H Lymphocytes % (Manual) 9 L Monocytes % (Manual) 8 Eosinophils % (Manual) 2 Platelet Estimate Normal PT 11.5 INR 1.0 APTT 28 Sodium 144 Potassium 4.4 Chloride 93 L Carbon Dioxide 33 H Anion Gap 23 H BUN 37 H Creatinine 7.0 H Est GFR ( Amer) 9 Est GFR (Non-Af Amer) 8 Random Glucose 98 Calcium 9.7 Total Bilirubin 0.6 AST 18 ALT 17 L Alkaline Phosphatase 61 Troponin I Total Protein 8.6 H Albumin 4.4 Globulin 4.2 H Albumin/Globulin Ratio 1.1 08/18/17 17:47 WBC RBC Hgb Hct MCV MCH MCHC RDW Plt Count MPV Neut % (Auto) Lymph % (Auto) [place] % (Auto) Eos % (Auto) Baso % (Auto) Neut # (Auto) Lymph # (Auto) [place] # (Auto) Eos # (Auto) Baso # (Auto) Neutrophils % (Manual) Lymphocytes % (Manual) Monocytes % (Manual) Eosinophils % (Manual) Platelet Estimate PT INR APTT Sodium Potassium Chloride Carbon Dioxide Anion Gap BUN Creatinine Est GFR ( Amer) Est GFR (Non-Af Amer) Random Glucose Calcium Total Bilirubin AST ALT Alkaline Phosphatase Troponin I 0.0130 Total Protein Albumin Globulin Albumin/Globulin Ratio
[2017-08-19] MEDS: Nitroglycerin 0.1 mg/hr Top Patch TD SCH (11:11)
--- NOTE | 2017-08-19 11:33 | CON ---
DATE:08/18/2017 REQUESTED BY: Luis A Guthrie MD REASON FOR CONSULTATION: End-stage renal disease, continuation of hemodialysis. HISTORY OF PRESENT ILLNESS: Mr. Franks is a 72-year-old very pleasant elderly male with a past medical history significant for hypertension, hyperlipidemia, end-stage renal disease, cardiac arrhythmias, anxiety, arthritis, CA of the tonsils, status post radiation and chemotherapy in the past, followed by ENT and also the oncologist Dr. Colby, and also history of falls in the past, who was admitted from the PMD office with the chief complaint of cough and shortness of breath with chest discomfort. As per the patient's family and his sister, the patient is gradually losing weight. He used to weigh about 200 pounds in the past, now his weight is about 163 pounds. The patient is also choking more frequently now and sometimes vomiting and food is coming from his nostrils as per the patient's family. The patient was refusing PEG tube during his previous admission as an outpatient and his family had need for the PEG-tube placement. The patient was admitted for further management. PAST MEDICAL HISTORY: Significant for hypertension, hyperlipidemia, end-stage renal disease, cardiac arrhythmias, arthritis, and anxiety, and also CA of the tonsil. ALLERGIES: NO KNOWN DRUG ALLERGIES. PAST SURGICAL HISTORY: Status post radiation and chemotherapy for CA of the tonsil, and also left upper extremity AV graft. SOCIAL HISTORY: No smoking. No alcohol or drugs at this time. FAMILY HISTORY: Not significant. He lives close to his sister. He lives in a 2 family house. His sister lives downstairs. He lives in upstairs apartment as per the sister. REVIEW OF SYSTEMS: Significant for occasional nausea, choking, and also vomiting and weight loss, and also shortness of breath and cough, chest discomfort today. All other review of systems are reviewed and are negative. PHYSICAL EXAMINATION: VITAL SIGNS: As follows: Blood pressure 132/79, pulse 68, respirations 20, temperature 99, saturation 98%. Height 5 feet 11 inches, weight is 163 pounds. GENERAL: Mr. Franks is a 72-year-old elderly male, moderately built, moderately nourished, not in acute distress at this time. HEENT: Pupils normal and reactive to light and accommodation. Conjunctivae pink. Sclerae anicteric. Tongue is moist and trachea is midline. Slight dysarthria is present. The patient also has a discoloration of the skin on the right side of the neck. LUNGS: Symmetric on both sides. Bilateral breath sounds present. Clear on auscultation. No thyroid enlargement. CVS: [place] at the fifth intercostal space, midclavicular line. S1, S2 audible. No murmur or gallop. ABDOMEN: Normal in appearance, soft, tympanic. No guarding. No rigidity. No hepatosplenomegaly. TACTICAL AIR CONTROL PARTY MANAGER: The patient is alert, awake, and oriented x3. Nonfocal neuro examination. Cranial nerves II through XII grossly intact. Sensory and motor system is within normal limits. EXTREMITIES: No cyanosis, no clubbing, no edema. CURRENT MEDICATIONS: Include as follows: Amlodipine 5 mg p.o. daily, Nephro-John one tablet daily, Zemplar 2 mcg 3 times a week, Proscar 5 mg p.o. daily, Procrit 4000 units 3 times a week, vitamin D 1000 units daily, Coreg 12.5 mg p.o. b.i.d., and the patient was given pneumococcal vaccine on 05/06/2017. LABORATORY DATA: Include as follows: As of 08/18/2017, WBC 7.8, hemoglobin 12, hematocrit is 36.3, platelets 207. PT 11.5, PTT 28. Sodium 144, potassium 4.4, chloride 93, CO2 33, BUN 37, creatinine 7, glucose 98, calcium 9.7. Total bili 0.6, AST 18, ALT 17, alkaline phosphatase 61, total protein 0.013 and tp 8.6, albumin is 4.4. ASSESSMENT AND PLAN: In summary, Mr. Golden Thakkar is a 72-year-old elderly male with history of hypertension, hyperlipidemia, end-stage renal disease, carcinoma of the tonsil, status post radiation and chemotherapy, was admitted with difficulty to swallow, cough, and shortness of breath today and also occasional choking and vomiting with food and gradual weight loss. Chest x-ray: No report is available and CT of the abdomen, pelvis, and chest: Bilateral hyperdense or enhancing renal masses, 1.5 cm renal mass on the right and 1 cm mass on the left. MRI or dedicated renal CT might be helpful, colonic diverticulosis and hepatomegaly. 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 The prostate measured 3.6 cm x 4.9 cm x 3.[address] of the chest with intravenous contrast, discoid atelectasis or scar at the lung bases and thickening suggested of mid esophagitis and diagnostic consideration of left thyroid nodule or nodules. Recommend further evaluation with thyroid ultrasound and dilatation of the ascending thoracic aorta with a maximum diameter of 4.[address] of the neck as of 08/18/2017, impression: Necrotic soft tissue mass noted involving the right mucosal space and carotid sheath structures, mass effect upon the adjacent airway extending from the oropharynx superiorly to the level of the right true cord inferiorly, circumferential narrowing and displacement of the right cervical internal carotid artery, marked narrowing of the right internal jugular vein, mucosal thickening in the right maxillary sinus, nodules in the left lobe of the thyroid, recommend further evaluation with thyroid ultrasound. 1. End-stage renal disease. Continue hemodialysis three times a week Friday, , Friday. 2. Hypertension. Blood pressure is stable. Continue his current medications Amlodipine and Coreg and follow up with tower truck driver, Dr. Colby for further management and if the patient agrees, consider PEG tube placement. We will follow with you. Thank you for allowing me to participate in your patient's care. The patient underwent hemodialysis today in outpatient dialysis unit. Akshat Pak MD [facility]
--- NOTE | 2017-08-19 12:49 | CP.PCM.PN ---
Subjective - Date & Time of Evaluation Date of Evaluation: 08/19/17 Time of Evaluation: 12:49 - Subjective Subjective: pt is seen and examined, follow up consult is dictated #[id number] start ppn at 42 ml/he hd in am Objective - Vital Signs/Intake and Output Vital Signs (last 24 hours): Temp Pulse Resp BP Pulse Ox 97.8 F 66 18 146/90 97 08/19/17 07:57 08/19/17 07:57 08/19/17 07:57 08/19/17 07:57 08/19/17 07:57 Intake and Output: 08/19/17 08/19/17 06:59 18:59 Intake Total 0 Balance 0 - Medications Medications: Current Medications Albuterol/Ipratropium (Duoneb 3 Mg/0.5 Mg (3 Ml) Ud) 3 ml INH RQ6 PRN PRN Reason: Cough and congestion Famotidine (Pepcid) 20 mg IVP DAILY [facility] Last Admin: 08/19/17 10:49 Dose: 20 mg Nitroglycerin (Nitro-Dur 0.1 Mg/Hr Patch) 1 patch TD DAILY [facility] Last Admin: 08/19/17 11:11 Dose: 1 patch - Labs Labs: 08/18/17 17:47 08/18/17 17:47 PT 11.5 SECONDS (9.7-12.2) 08/18/17 17:47 INR 1.0 08/18/17 17:47 APTT 28 SECONDS (21-34) 08/18/17 17:47
--- NOTE | 2017-08-19 12:55 | RAD ---
HISTORY: pre-op COMPARISON: Chest x-ray performed 04/28/17 TECHNIQUE: Chest, one view. FINDINGS: LUNGS: Mild bibasilar atelectasis. Biapical pleural thickening. Please note that chest x-ray has limited sensitivity for the detection of pulmonary masses. PLEURA: No significant pleural effusion identified. No definite pneumothorax . CARDIOVASCULAR: Cardiomegaly. Ectatic aorta. OSSEOUS STRUCTURES: Degenerative changes. VISUALIZED UPPER ABDOMEN: Unremarkable. OTHER FINDINGS: None. IMPRESSION: Mild bibasilar atelectasis. Biapical pleural thickening. Cardiomegaly. Ectatic aorta.
--- NOTE | 2017-08-19 14:59 | CP.PCM.PN ---
Subjective - Date & Time of Evaluation Date of Evaluation: 08/19/17 Time of Evaluation: 08:00 - Subjective Subjective: Surgery Progress note. Dr. Canales. Pt seen and examined at bedside. No acute events overnight. Still reports dysphagia. No CP/SOB. No new complaints. Objective - Vital Signs/Intake and Output Vital Signs (last 24 hours): Temp Pulse Resp BP Pulse Ox 97.8 F 79 18 135/84 97 08/19/17 07:57 08/19/17 10:49 08/19/17 07:57 08/19/17 10:49 08/19/17 07:57 Intake and Output: 08/19/17 08/19/17 06:59 18:59 Intake Total 0 Balance 0 - Medications Medications: Current Medications Albuterol/Ipratropium (Duoneb 3 Mg/0.5 Mg (3 Ml) Ud) 3 ml INH RQ6 PRN PRN Reason: Cough and congestion Famotidine (Pepcid) 20 mg IVP DAILY [facility] Last Admin: 08/19/17 10:49 Dose: 20 mg Multivitamins/Vitamin C 10 ml/Chromium/Copper/Manganese/Seleni/Zn 1 ml/ Amino Acids 1,011 mls @ 42 mls/hr IV .Q24H [facility] Stop: 08/20/17 17:59 Fat Emulsion Intravenous (Intralipid 20%) 500 mls @ 42 mls/hr IV MWF [facility] Stop: 08/26/17 09:01 Nitroglycerin (Nitro-Dur 0.1 Mg/Hr Patch) 1 patch TD DAILY [facility] Last Admin: 08/19/17 11:11 Dose: 1 patch - Labs Labs: 08/18/17 17:47 08/18/17 17:47 PT 11.5 SECONDS (9.7-12.2) 08/18/17 17:47 INR 1.0 08/18/17 17:47 APTT 28 SECONDS (21-34) 08/18/17 17:47 - Constitutional Appears: Well, Non-toxic, No Acute Distress - Head Exam Head Exam: ATRAUMATIC, NORMAL INSPECTION, NORMOCEPHALIC - Eye Exam Eye Exam: EOMI, Normal appearance - ENT Exam ENT Exam: Mucous Membranes Moist - Respiratory Exam Respiratory Exam: NORMAL BREATHING PATTERN. absent: Accessory Muscle Use, Respiratory Distress - Cardiovascular Exam Cardiovascular Exam: RRR. absent: JVD - GI/Abdominal Exam GI & Abdominal Exam: Soft. absent: Distended, Firm, Guarding, Rigid, Tenderness Additional comments: approx 5cm transverse midline abdominal scar noted, well healed. Non-tender, non -distended. - Extremities Exam Extremities Exam: Normal Inspection. absent: Calf Tenderness - Back Exam Back Exam: NORMAL INSPECTION - Neurological Exam Neurological Exam: Alert, Awake, Oriented x3 - Psychiatric Exam Psychiatric exam: Normal Affect, Normal Mood - Skin Skin Exam: Dry, Intact, Normal Color, Warm Assessment and Plan - Assessment and Plan (Free Text) Assessment: 72yo M with progressive dysphagia and cachexia Plan: - To OR tomorrow for open gastrostomy tomorrow - NPO mn - medically maximize Further recs as per Dr. Parker Giraldo PGY1 surgery pager: [phone]
[2017-08-19] MEDS ORDERED: Albuterol-Ipratrop 3 mg / 0.5 (3 ml) UD INH ONE (16:45)
[2017-08-19] MEDS ORDERED: Acetylcysteine 20% Inhal Soln (4ml) INH ONE (16:45)
[2017-08-19] MEDS ORDERED: PPN#1 IV SCH (18:00)
[2017-08-20 07:36] LABS: BASO # 0.1 K/uL (0.0-0.2); EOS # 0.2 K/uL (0.0-0.7); EOS % 2.6 % (0.0-4.0); HEMOGLOBIN 12.8 g/dL (12.0-18.0); LYMPH # 0.6 K/uL (1.0-4.3); LYMPH % 7.5 % (20.0-40.0); MEAN CELL VOLUME 91.9 fL (80.0-94.0); MEAN CORPUSCULAR HEMOGLOBIN 30.7 pg (27.0-31.0); MEAN CORPUSCULAR HGB CONC 33.4 g/dL (33.0-37.0); MEAN PLATELET VOLUME 7.4 fL (7.2-11.7); MONO # 0.8 K/uL (0.0-0.8); MONO % 10.8 % (0.0-10.0); NEUT # 5.8 K/uL (1.8-7.0); NEUT % 78.1 % (50.0-75.0); NRBC % 0.1 % (0.0-2.0); PLATELET COUNT 227 K/uL (130-400); RBC 4.16 Mil/uL (4.40-5.90); RED CELL DISTRIBUTION WIDTH 16.1 % (11.5-14.5); WHITE BLOOD COUNT 7.4 K/uL (4.8-10.8)
[2017-08-20 08:15] LABS: ALBUMIN 4.2 g/dL (3.5-5.0); CALCIUM 9.6 mg/dl (8.6-10.4)
--- NOTE | 2017-08-20 08:32 | CP.PCM.PN ---
Subjective - Date & Time of Evaluation Date of Evaluation: 08/20/17 Time of Evaluation: 08:05 - Subjective Subjective: Pt fee well. No CP, no SOB, no edema, no headache Objective - Vital Signs/Intake and Output Vital Signs (last 24 hours): Temp Pulse Resp BP Pulse Ox 98.5 F 72 20 152/89 H 100 08/20/17 07:40 08/20/17 07:40 08/20/17 07:40 08/20/17 07:40 08/20/17 07:40 Intake and Output: 08/20/17 08/20/17 06:59 18:59 Intake Total 168 Balance 168 - Medications Medications: Current Medications Albuterol/Ipratropium (Duoneb 3 Mg/0.5 Mg (3 Ml) Ud) 3 ml INH RQ6 PRN PRN Reason: Cough and congestion Famotidine (Pepcid) 20 mg IVP DAILY [facility] Last Admin: 08/19/17 10:49 Dose: 20 mg Multivitamins/Vitamin C 10 ml/Chromium/Copper/Manganese/Seleni/Zn 1 ml/ Amino Acids 1,011 mls @ 42 mls/hr IV .Q24H [facility] Stop: 08/20/17 17:59 Last Admin: 08/19/17 18:34 Dose: 42 mls/hr Fat Emulsion Intravenous (Intralipid 20%) 500 mls @ 42 mls/hr IV MWF [facility] Stop: 08/26/17 09:01 Nitroglycerin (Nitro-Dur 0.1 Mg/Hr Patch) 1 patch TD DAILY [facility] Last Admin: 08/19/17 11:11 Dose: 1 patch - Labs Labs: 08/20/17 07:19 08/20/17 07:19 PT 11.5 SECONDS (9.7-12.2) 08/18/17 17:47 INR 1.0 08/18/17 17:47 APTT 28 SECONDS (21-34) 08/18/17 17:47 - Constitutional Appears: No Acute Distress - Eye Exam Eye Exam: Normal appearance - ENT Exam ENT Exam: Mucous Membranes Moist - Neck Exam Neck Exam: Full ROM. absent: Lymphadenopathy, Normal Inspection - Respiratory Exam Respiratory Exam: Decreased Breath Sounds, Rhonchi. absent: Clear to Ausculation Bilateral, Rales, Wheezes - Cardiovascular Exam Cardiovascular Exam: +S1, Murmur. absent: Gallop, REGULAR RHYTHM - GI/Abdominal Exam GI & Abdominal Exam: Soft. absent: Tenderness, Mass - Extremities Exam Extremities Exam: Full ROM. absent: Calf Tenderness, Joint Swelling, Normal Capillary Refill, Pedal Edema Assessment and Plan - Assessment and Plan (Free Text) Assessment: Dysphagia; HTN, ESRD ENT cancer need IV prophy' Cont meds
[2017-08-20] MEDS: Fat Emulsion 20% IV 500 ML IV SCH (09:00)
[2017-08-20 09:23] LABS: EOSINOPHIL 2 % (0-4); LYMPHOCYTE 11 % (20-40); MONOCYTE 8 % (0-10); NEUTROPHIL 79 % (50-75); TOTAL CELLS COUNTED 100
[2017-08-20 09:24] LABS: PLATELET ESTIMATE NORMAL (NORMAL)
--- NOTE | 2017-08-20 09:30 | PN ---
FOLLOWUP RENAL CONSULTATION DATE: 08/19/2017 LOCATION: Patient is located in room 557, bed A. REQUESTED BY: Luis A Guthrie MD REASON FOR THE FOLLOWUP: End-stage renal disease, for continuation of the hemodialysis. SUBJECTIVE: Mr. Franks is a 72-year-old elderly -[place] male with a past medical history significant for hypertension; end-stage renal disease; CA of the tonsil status post chemo and radiation therapy, who was admitted with the chief complaints of difficulty to swallow, regurgitation of the food from the nostrils, weight loss, also history of CVA in the past and ambulates with a cane. Patient underwent hemodialysis yesterday at Outpatient Dialysis Unit. Patient is ambulating, not in any acute distress. Denies any chest pain or palpitation today. No abdominal pain. No nausea or vomiting. Complains of difficulty to swallow. PHYSICAL EXAMINATION: VITAL SIGNS: As follows; blood pressure 146/90, pulse 66, respirations 18, temperature 97.8, saturation 97%. Height 5 feet 11 inches, weight is 163 pounds. GENERAL: Mr. Franks is a 72-year-old elderly male, moderately built, moderately nourished, not in any distress. HEENT: Pupils normal and reactive to light and accommodation. Conjunctivae pink. Sclerae anicteric. Tongue is moist and trachea is midline. SKIN: Patient has a discoloration of the skin on the right side of the face and the neck. LUNGS: Symmetry on both sides. Bilateral breath sounds present. No crackles. CARDIOVASCULAR SYSTEM: [place] at the fifth intercostal space, midclavicular line. S1 and S2 audible. No murmur or gallop. ABDOMEN: Normal in appearance, soft, tympanic. No guarding. No rigidity. No hepatosplenomegaly. CENTRAL NERVOUS SYSTEM: The patient is alert, awake, and oriented x3. Nonfocal neuro examination. Cranial nerves II through XII grossly intact. Sensory and motor system is within normal limits. EXTREMITIES: No cyanosis. No clubbing. No edema. CURRENT MEDICATIONS: Include as follows; DuoNeb inhaler, Nitro patch topical daily 0.1 mg per hour, and Pepcid 20 mg IV piggyback daily. All his home medication is on hold at this time. LABORATORY DATA: No new labs are available for today. As of 08/18/2017, H and H 12/36.3, PT 11.5, PTT 28. Sodium 144, potassium 4.4, chloride 93, CO2 of 33, BUN 37, creatinine 7.0. Total protein 8.6 and albumin 4.4. Troponin 0.013. ASSESSMENT AND PLAN: In summary, Mr. Franks is a 72-year-old elderly male with a history of hypertension, cerebrovascular accident, end-stage renal disease, cancer of the tonsil status post chemoradiation therapy with the recurrence of the mass, also thoracic aortic aneurysm about 4.7 cm, also necrotic soft tissue mass noted involving the right mucosal space and carotid sheath structures, mass effect upon the adjacent airway extending from the oropharynx superiorly to the level of the right true cords inferiorly. Circumferential narrowing and displacement of the right cervical internal carotid artery, marked narrowing of the right internal jugular vein, mucosal thickening of the right maxillary sinus and also nodule in the left lobe of the thyroid by CT of the neck. 1. End-stage renal disease. Continue hemodialysis three times a week on Friday, Friday, Friday. 2. Hypertension. Blood pressure is stable. Continue Nitro paste and consider clonidine patch if needed or intravenous hydralazine for control of the blood pressure if needed, and also we will recommend to start peripheral parenteral nutrition at 42 mL per hour until percutaneous endoscopic gastrostomy tube is placed, unable to place the percutaneous endoscopic gastrostomy tube by Interventional Radiology as stomach is high up. Recommending surgical intervention and placement of the percutaneous endoscopic gastrostomy by Surgery Team. Case discussed with the nurse practitioner, We will follow with you. Thank you for allowing me to participate in your patient's care, and also we will schedule for a hemodialysis in a.m. Follow up with Surgery for the PEG tube. Akshat Pak MD [facility]
[2017-08-20] MEDS: Nitroglycerin 0.1 mg/hr Top Patch TD SCH (11:11)
--- NOTE | 2017-08-20 16:16 | CP.PCM.PN ---
Subjective - Date & Time of Evaluation Date of Evaluation: 08/20/17 Time of Evaluation: 07:30 - Subjective Subjective: Surgery Progress note. Dr. Canales Pt seen and examined at bedside. Planned surgery for open gastrostomy cancelled today due to recommended ENT evaluation. Family notified. Denies any further complaints. Objective - Vital Signs/Intake and Output Vital Signs (last 24 hours): Temp Pulse Resp BP Pulse Ox 97.7 F 75 16 165/96 H 96 08/20/17 10:40 08/20/17 13:00 08/20/17 13:00 08/20/17 13:00 08/20/17 13:00 Intake and Output: 08/20/17 08/20/17 06:59 18:59 Intake Total 168 Balance 168 - Medications Medications: Current Medications Albuterol/Ipratropium (Duoneb 3 Mg/0.5 Mg (3 Ml) Ud) 3 ml INH RQ6 PRN PRN Reason: Cough and congestion Famotidine (Pepcid) 20 mg IVP DAILY [facility] Last Admin: 08/20/17 11:11 Dose: Not Given Multivitamins/Vitamin C 10 ml/Chromium/Copper/Manganese/Seleni/Zn 1 ml/ Amino Acids 1,011 mls @ 42 mls/hr IV .Q24H [facility] Stop: 08/20/17 17:59 Last Admin: 08/19/17 18:34 Dose: 42 mls/hr Fat Emulsion Intravenous (Intralipid 20%) 500 mls @ 42 mls/hr IV MWF [facility] Stop: 08/26/17 09:01 Last Admin: 08/20/17 09:00 Dose: Not Given Ceftriaxone Sodium 1 gm/ (Sodium Chloride) 100 mls @ 200 mls/hr IVPB Q24H [facility] Stop: 08/26/17 12:01 Nitroglycerin (Nitro-Dur 0.1 Mg/Hr Patch) 1 patch TD DAILY [facility] Last Admin: 08/20/17 11:11 Dose: Not Given - Labs Labs: 08/20/17 07:19 08/20/17 07:19 PT 11.5 SECONDS (9.7-12.2) 08/18/17 17:47 INR 1.0 08/18/17 17:47 APTT 28 SECONDS (21-34) 08/18/17 17:47 - Constitutional Appears: Well, No Acute Distress - Head Exam Head Exam: ATRAUMATIC, NORMAL INSPECTION, NORMOCEPHALIC - Eye Exam Eye Exam: EOMI, Normal appearance - ENT Exam ENT Exam: Mucous Membranes Moist - Respiratory Exam Respiratory Exam: NORMAL BREATHING PATTERN. absent: Accessory Muscle Use, Respiratory Distress - Cardiovascular Exam Cardiovascular Exam: RRR. absent: JVD - GI/Abdominal Exam GI & Abdominal Exam: Soft. absent: Distended, Guarding, Rigid, Tenderness - Extremities Exam Extremities Exam: Normal Inspection. absent: Calf Tenderness - Neurological Exam Neurological Exam: Alert, Awake, Oriented x3 - Skin Skin Exam: Dry, Warm Assessment and Plan - Assessment and Plan (Free Text) Assessment: 72yo M with progressive dysphagia and cachexia Plan: - ENT eval as per Anesthesia and Primary teams - To OR tomorrow for open gastrostomy pending ENT eval and recs - NPO mn Further recs as per Dr. Parker Giraldo PGY1 surgery pager: [phone]
[2017-08-20] MEDS: Dextrose 5%/0.45% NS 1,000 ML IV SCH (16:47)
--- NOTE | 2017-08-20 18:21 | CP.PCM.PN ---
Subjective - Date & Time of Evaluation Date of Evaluation: 08/20/17 Time of Evaluation: 18:20 - Subjective Subjective: pt is seen and examined, follow up consult is dictated #[id number] s/p hd, uf 1.52 lit Objective - Vital Signs/Intake and Output Vital Signs (last 24 hours): Temp Pulse Resp BP Pulse Ox 97.9 F 77 20 153/91 H 95 08/20/17 16:35 08/20/17 16:35 08/20/17 16:35 08/20/17 16:35 08/20/17 16:35 Intake and Output: 08/20/17 08/20/17 06:59 18:59 Intake Total 168 Balance 168 - Medications Medications: Current Medications Albuterol/Ipratropium (Duoneb 3 Mg/0.5 Mg (3 Ml) Ud) 3 ml INH RQ6 PRN PRN Reason: Cough and congestion Famotidine (Pepcid) 20 mg IVP DAILY [facility] Last Admin: 08/20/17 11:11 Dose: Not Given Fat Emulsion Intravenous (Intralipid 20%) 500 mls @ 42 mls/hr IV MWF [facility] Stop: 08/26/17 09:01 Last Admin: 08/20/17 09:00 Dose: Not Given Ceftriaxone Sodium 1 gm/ (Sodium Chloride) 100 mls @ 200 mls/hr IVPB Q24H [facility] Stop: 08/26/17 12:01 Last Admin: 08/20/17 12:00 Dose: Not Given Dextrose/Sodium Chloride (Dextrose 5%/0.45% Ns 1000 Ml) 1,000 mls @ 75 mls/hr IV .[id number] [facility] Last Admin: 08/20/17 16:47 Dose: 75 mls/hr Nitroglycerin (Nitro-Dur 0.1 Mg/Hr Patch) 1 patch TD DAILY [facility] Last Admin: 08/20/17 11:11 Dose: Not Given - Labs Labs: 08/20/17 07:19 08/20/17 07:19 PT 11.5 SECONDS (9.7-12.2) 08/18/17 17:47 INR 1.0 08/18/17 17:47 APTT 28 SECONDS (21-34) 08/18/17 17:47
--- NOTE | 2017-08-20 18:28 | CON ---
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 This occurred about 2 years ago. At that time, he had radiation therapy plus chemotherapy plus surgery. He has been off treatments for the last year and a half. I assume about 03/2017, he was doing pretty well. CAT scans were negative. However, in the last 2 or 3 weeks, he has been noticing several new symptoms, number one, more hardening of the right neck. In terms of the skin, he is just having a sort of a numb feeling in the right face and he has been having severe problems with his swallowing. He finds that the food is coming up through his nose after he swallows it and even a little bit after an hour or two later. Our concern here is that he has a local recurrence of his cancer causing dysphagia. We are also worried about him getting a pneumonia. It is complicated by the fact that he is on dialysis three days a week. So with this, we elected to put him in the hospital and coordinate the dialysis with a feeding tube and a gastrostomy feeding tube and a CAT scan of his neck to further identify the cancer. We intend to give him Erbitux chemotherapy once a week as an outpatient after all this was done. So at the hospitalization, he is getting the feeding tube and observation, after which getting the CAT scan and ruling out pneumonia, but I will be talking to his sister and making arrangements for chemotherapy as an outpatient in about a week. The other issue is whether he should have a Port-A-Cath. I will discuss that with the . Rey Colby MD 08/20/2017<
[2017-08-20 20:46] LABS: CALCIUM 9.4 mg/dl (8.6-10.4)
--- NOTE | 2017-08-20 23:11 | CON ---
DATE: 08/20/2017 REASON FOR CONSULTATION: Throat mass. REQUESTING PHYSICIAN: Dr. Guthrie. HISTORY: This is a 72-year-old male status post chemoradiation and possible resection for a throat cancer, who has throat pain and dysphagia that is constant, moderate in intensity for weeks, it is pharyngeal with pain and feels like something as to having a globus sensation in the throat. PAST MEDICAL HISTORY: As noted in the chart by me. MEDICATIONS: As noted in the chart by me. PHYSICAL EXAMINATION: HEAD: Atraumatic, normocephalic. FACE: Good facial movements bilaterally CONSTITUTIONAL: Well fed, well nourished. COMMUNICATION: Communicates well and appropriately. EXTERNAL NOSE AND EARS: No masses. No lesions. No erythema. No edema. INTERNAL NOSE: Deviated septum. No masses. No lesions. No erythema. No edema. LIPS AND GUMS: No masses. No lesions. No erythema. No edema. ORAL CAVITY AND OROPHARYNX: No masses. No lesions. No erythema. No edema. NECK: Postradiation changes. THYROID: No thyromegaly. No goiter. LYMPH NODES: No lymphadenopathy of the neck. RADIOLOGY: CAT scan was reviewed by me, which revealed throat mass; however, the area seems to be patent on CAT scan. I will contact Dr. Fernandez since he is the ENT who saw him last to get an update on his history. Hollis Cordero MD
--- NOTE | 2017-08-21 07:19 | PN ---
DATE: 08/20/2017 FOLLOWUP RENAL CONSULTATION LOCATION: The patient is located in room 557, bed A. REQUESTED BY: Luis A Guthrie MD REASON FOR FOLLOWUP: End-stage renal disease, for continuation of hemodialysis. HISTORY OF PRESENT ILLNESS: Mr. Franks is 72 years old elderly male with a past medical history significant for longstanding history of hypertension, CVA, end-stage renal disease, CA of the right tonsil, status post chemo and radiation therapy, followed by hematology oncologist, Dr. Colby and ENT specialist. The patient was admitted with chief complaints of difficulty to swallow and regurgitation of the food and weight loss. The patient is scheduled for a PEG tube placement by intervention radiology, unable to place and suggested to do surgical approach by the surgeon. The patient is feeling better, not in acute distress. Denies any chest pain or palpitation. The patient does complain of cough and foul smelling of the mouth. The patient is not in acute distress. PHYSICAL EXAMINATION: VITAL SIGNS: As follows, blood pressure 153/91, pulse 77, respirations about 20, temperature 97.9, saturation 95%. Height 5 feet 11 inches, and post dialysis weight is 68.7 kg, had a UF about 1.5 liters. GENERAL: On physical exam, Mr. Golden Moy is a 72 years old elderly male, moderately built, moderately nourished, not in distress. HEENT: Pupils normal and reactive to light and accommodation. Conjunctivae pink. Sclerae anicteric. Tongue is moist and foul-smelling. No thyroid enlargement. Discoloration of the skin on the right side of the neck and face. LUNGS: Symmetric on both sides. Bilateral breath sounds present. No crackles. CVS: [place] at the fifth intercostal space, midclavicular line. S1, S2 audible. No murmur or gallop. ABDOMEN: Normal in appearance, soft, tympanic. No guarding. No rigidity. No hepatosplenomegaly. PHYSICS AND ASTRONOMY PROFESSOR: The patient is alert, awake, and oriented x3. Nonfocal neuro examination. Cranial nerves II through XII grossly intact. Sensory and motor system is within normal limits. EXTREMITIES: No cyanosis, no clubbing, no edema. LABORATORY DATA: His current lab data include as follows, as of 08/20/2017, WBC 7.4, hemoglobin 12.8, hematocrit is 38.3, platelets 227. Neutrophils 79, lymphs 11, monos 8, eosinophils 2. Sodium 142, potassium 5.3, chloride 94, CO of 28, BUN 75, creatinine 10.6, glucose 91, calcium 9.6, total bili 0.6, AST 22, ALT 12, alkaline phosphatase 66, total protein 8.2, albumin is 4.2. His repeat BMP post dialysis, sodium 142, potassium 4.4, chloride 96, CO2 of 30, BUN 40, creatinine 7.1, glucose 96, calcium 9.4. IMPRESSION: In summary, Mr. Golden Moy is a 72 years old elderly male with history of hypertension, CVA, ambulates with a cane, end-stage renal disease, CA of the tonsil, status post chemo and radiation who was admitted with difficulty to swallow, regurgitation of the food, and weight loss, and elevated potassium. 1. End-stage renal disease. Continue hemodialysis three times a week; Friday, , Friday. 2. Hypertension. Blood pressure is stable. Continue nitroglycerin patch and continue Rocephin 1 gm daily and also IV fluids of D5 half normal saline at 75 mL/hour and DuoNeb inhaler and mL/hour [employer] half and Pepcid 20 mg IV piggyback daily. 3. Carcinoma of the tonsil with mass in the soft tissue on the pharynx. Continue to follow up with heme/oncologist, Dr. Colby We will follow with you. Thank you for allowing me to participate in your patient's care. Follow with Surgery for possible PEG tube placement tomorrow. Akshat Pak MD
[2017-08-21] MEDS ORDERED: Propofol 10 mg/ml 1,000 MG/100 ML VIAL ONE (07:58)
[2017-08-21] MEDS ORDERED: Lidocaine 4% (Laryng-O-Jet) Kit MM ONE ×2 (07:58→10:15)
[2017-08-21] MEDS ORDERED: Remifentanil 1 mg/3 ml Vial IV ONE (07:59)
--- NOTE | 2017-08-21 08:47 | CP.PCM.PN ---
Subjective - Date & Time of Evaluation Date of Evaluation: 08/21/17 Time of Evaluation: 08:47 - Subjective Subjective: pt is seen and examined, follow up consult is dictated #[id number] Objective - Vital Signs/Intake and Output Vital Signs (last 24 hours): Temp Pulse Resp BP Pulse Ox 97.9 F 74 20 158/86 H 95 08/21/17 07:20 08/21/17 07:20 08/21/17 07:20 08/21/17 07:20 08/21/17 07:20 - Medications Medications: Current Medications Albuterol/Ipratropium (Duoneb 3 Mg/0.5 Mg (3 Ml) Ud) 3 ml INH RQ6 PRN PRN Reason: Cough and congestion Famotidine (Pepcid) 20 mg IVP DAILY [facility] Last Admin: 08/20/17 11:11 Dose: Not Given Fat Emulsion Intravenous (Intralipid 20%) 500 mls @ 42 mls/hr IV MWF [facility] Stop: 08/26/17 09:01 Last Admin: 08/20/17 09:00 Dose: Not Given Ceftriaxone Sodium 1 gm/ (Sodium Chloride) 100 mls @ 200 mls/hr IVPB Q24H [facility] Stop: 08/26/17 12:01 Last Admin: 08/20/17 12:00 Dose: Not Given Dextrose/Sodium Chloride (Dextrose 5%/0.45% Ns 1000 Ml) 1,000 mls @ 75 mls/hr IV .[id number] [facility] Last Admin: 08/20/17 16:47 Dose: 75 mls/hr Nitroglycerin (Nitro-Dur 0.1 Mg/Hr Patch) 1 patch TD DAILY [facility] Last Admin: 08/20/17 11:11 Dose: Not Given - Labs Labs: 08/20/17 07:19 08/20/17 20:14 PT 11.5 SECONDS (9.7-12.2) 08/18/17 17:47 INR 1.0 08/18/17 17:47 APTT 28 SECONDS (21-34) 08/18/17 17:47
[2017-08-21 08:56] LABS: BASO # 0.1 K/uL (0.0-0.2); BASO % 0.7 % (0.0-2.0); EOS # 0.2 K/uL (0.0-0.7); EOS % 2.1 % (0.0-4.0); HEMOGLOBIN 12.2 g/dL (12.0-18.0); LYMPH # 0.4 K/uL (1.0-4.3); LYMPH % 5.2 % (20.0-40.0); MEAN CELL VOLUME 90.8 fL (80.0-94.0); MEAN CORPUSCULAR HEMOGLOBIN 30.9 pg (27.0-31.0); MEAN PLATELET VOLUME 7.3 fL (7.2-11.7); MONO # 0.7 K/uL (0.0-0.8); MONO % 9.8 % (0.0-10.0); NEUT % 82.2 % (50.0-75.0); PLATELET COUNT 216 K/uL (130-400); RBC 3.96 Mil/uL (4.40-5.90); WHITE BLOOD COUNT 7.3 K/uL (4.8-10.8)
[2017-08-21 09:17] LABS: ALBUMIN 4.1 g/dL (3.5-5.0); CALCIUM 9.3 mg/dl (8.6-10.4)
[2017-08-21 09:39] LABS: ANISOCYTOSIS SLIGHT; LYMPHOCYTE 5 % (20-40); MONOCYTE 5 % (0-10); NEUTROPHIL 90 % (50-75); PLATELET ESTIMATE NORMAL (NORMAL); TOTAL CELLS COUNTED 100
[2017-08-21] MEDS ORDERED: Lidocaine 5% Oint(35 gm) TOP ONE (10:08)
[2017-08-21] MEDS: Nitroglycerin 0.1 mg/hr Top Patch TD SCH (10:15)
[2017-08-21] MEDS: Dextrose 5%/0.45% NS 1,000 ML IV SCH (10:15)
[2017-08-21] MEDS ORDERED: ceFAZolin 1 gm in NS 1 GM/100 ML BAG IVPB ONE (11:51)
--- NOTE | 2017-08-21 13:15 | PCM.SURG1 ---
Surgeon's Initial Post Op Note - Surgeon's Notes Surgeon: Dr. Canales Combination Welder Apprentice: Miya Horne PGY3, Ambar Montes PGY2, Alejandra Zuniga OMS3 Type of Anesthesia: General Endo Pre-Operative Diagnosis: dysphagia, cachexia Operative Findings: Normal anatomy, see full operative report Post-Operative Diagnosis: dysphagia, cachexia Operation Performed: open juan r gastrostomy Specimen/Specimens Removed: none Estimated Blood Loss: EBL {In ML}: 5 Blood Products Given: N/A Drains Used: Ostomy Device Post-Op Condition: Fair Date of Surgery/Procedure: 08/21/17 Time of Surgery/Procedure: 11:45
[2017-08-21] MEDS ORDERED: Acetaminophen IV 1,000 MG in Premixed IV 1 EA IV PRN (13:33)
--- NOTE | 2017-08-21 17:34 | CP.PCM.PN ---
Subjective - Date & Time of Evaluation Date of Evaluation: 08/21/17 Time of Evaluation: 17:32 - Subjective Subjective: S: Feels brandie. S/p gastrostomy. No fever. Objective - Vital Signs/Intake and Output Vital Signs (last 24 hours): Temp Pulse Resp BP Pulse Ox 97.4 F L 80 22 144/88 94 L 08/21/17 15:33 08/21/17 15:33 08/21/17 15:33 08/21/17 15:33 08/21/17 15:33 Intake and Output: 08/21/17 08/21/17 06:59 18:59 Intake Total 150 Balance 150 - Medications Medications: Current Medications Albuterol/Ipratropium (Duoneb 3 Mg/0.5 Mg (3 Ml) Ud) 3 ml INH RQ6 PRN PRN Reason: Cough and congestion Famotidine (Pepcid) 20 mg IVP DAILY [facility] Last Admin: 08/21/17 10:15 Dose: 20 mg Fat Emulsion Intravenous (Intralipid 20%) 500 mls @ 42 mls/hr IV MWF [facility] Stop: 08/26/17 09:01 Last Admin: 08/20/17 09:00 Dose: Not Given Ceftriaxone Sodium 1 gm/ (Sodium Chloride) 100 mls @ 200 mls/hr IVPB Q24H [facility] Stop: 08/26/17 12:01 Last Admin: 08/20/17 12:00 Dose: Not Given Dextrose/Sodium Chloride (Dextrose 5%/0.45% Ns 1000 Ml) 1,000 mls @ 75 mls/hr IV .[id number] [facility] Last Admin: 08/21/17 10:15 Dose: 75 mls/hr Morphine Sulfate (Morphine) 2 mg IVP Q4 PRN PRN Reason: Pain, moderate (4-7) Last Admin: 08/21/17 15:57 Dose: 2 mg Nitroglycerin (Nitro-Dur 0.1 Mg/Hr Patch) 1 patch TD DAILY [facility] Last Admin: 08/21/17 10:15 Dose: 1 patch - Labs Labs: 08/21/17 08:41 08/21/17 08:41 PT 11.5 SECONDS (9.7-12.2) 08/18/17 17:47 INR 1.0 08/18/17 17:47 APTT 28 SECONDS (21-34) 08/18/17 17:47 - Constitutional Appears: Chronically Ill - Head Exam Head Exam: NORMAL INSPECTION - Eye Exam Eye Exam: Normal appearance - ENT Exam ENT Exam: Mucous Membranes Dry - Neck Exam Neck Exam: Tenderness - Respiratory Exam Respiratory Exam: NORMAL BREATHING PATTERN - GI/Abdominal Exam GI & Abdominal Exam: Soft (gastrostomy tube intact) - Rectal Exam Rectal Exam: Deferred - Back Exam Back Exam: NORMAL INSPECTION - Neurological Exam Neurological Exam: Awake - Skin Skin Exam: Dry Assessment and Plan (1) Dysphagia Status: Acute (2) Cancer of neck Status: Acute (3) Hypertension Status: Acute (4) ESRD needing dialysis Status: Acute - Assessment and Plan (Free Text) Assessment: A/p: Continue treatment plans. Stat Gastrostom feeding 08-22-17
--- NOTE | 2017-08-22 00:56 | PN ---
FOLLOWUP RENAL CONSULTATION DATE: 08/21/2017 LOCATION: The patient is located in room #557, bed A. REQUESTING PHYSICIAN: Luis A Guthrie MD REASON FOR FOLLOWUP: End-stage renal disease, continuation of hemodialysis. SUBJECTIVE: Mr. Franks is a 72 years old elderly male with a past medical history significant for longstanding hypertension, CVA, end-stage renal disease, CA of the tonsil on the right side, status post surgery, chemo and radiation therapy, was admitted with difficulty to swallow, regurgitation of food from the nostrils and weight loss. Initially, the patient was refusing on PEG tube placement in the last month and now, the patient agreed for the PEG tube placement. The patient is not in acute distress and denies any headache, dizziness. Denies any chest pain or palpitation. Denies any fever. The patient does complain of cough. The patient is n.p.o., waiting for the PEG tube placement by Dr. Canales today. OBJECTIVE: VITAL SIGNS: As follows, blood pressure 132/81, pulse 77, respirations 18, temperature 98.2, saturation 98%. Height 5 feet 11 inches, weight is 68.7 kg post-dialysis yesterday. GENERAL: Mr. Golden Moy is a 72 years elderly male, moderate built, moderately nourished, not in distress. HEENT: Pupils normal and reactive to light and accommodation. Conjunctivae pink, sclerae anicteric. Tongue is moist. Trachea is midline. LUNGS: Symmetric on both sides. Bilateral breath sounds present. Clear on auscultation. CVS: [place] at the fifth intercostal space, midclavicular line. S1, S2 audible. No murmur or gallop. ABDOMEN: Normal in appearance, soft, tympanic. No guarding. Abdomen is scaphoid in appearance and no hepatosplenomegaly. HUMANITIES DEPARTMENT CHAIR: The patient is alert, awake, oriented x3 and nonfocal neuro examination. Cranial nerves II through grossly intact. Sensory and motor system is within normal limits. EXTREMITIES: No cyanosis, no clubbing or edema. CURRENT MEDICATIONS: Include as follows: 1. Rocephin 1 g daily. 2. D5 half normal saline at 75 mL/hour. 3. DuoNeb inhaler. 4. Intralipid 20% 42 ml IV 3 times a week. 5. Morphine sulfate 2 mg IV q.4 hours. 6. Nitroglycerin patch 0.1 mg per hour patch daily. 7. Pepcid 20 mg IV daily. LABORATORY DATA: WBC 7.5, hemoglobin 12.2, hematocrit is 36, platelets 216. Sodium 141, potassium 4.6, chloride 98, CO2 of 26, BUN 47, creatinine 8.4, glucose 101, calcium 9.3. Total bili 0.7, AST 22, ALT 13, alkaline phosphatase 67, total protein 8.2, albumin is 4.1. SUMMARY: Mr. Golden Moy is a 72-year-old elderly male with hypertension, cerebrovascular accident, end-stage renal disease, cancer of the tonsil with difficulty to swallow and regurgitation of foot and weight loss. He was admitted for possible percutaneous endoscopic gastrostomy tube placement. 1. End-stage renal disease. Continue dialysis 3 times a week, Friday, Friday, Friday. 2. Hypertension. Blood pressure is stable. Continue to monitor and continue nitroglycerin paste. 3. Weight loss secondary to decreased p.o. intake and dysphagia. The patient is awaiting for the percutaneous endoscopic gastrostomy tube placement by Dr. Canales this afternoon. We will follow with you. Thank you for allowing me to participate in your patient's care. We will schedule for hemodialysis in a.m. Akshat Pak MD
--- NOTE | 2017-08-22 00:58 | OP ---
PROCEDURE DATE: 08/21/2017 PREOPERATIVE DIAGNOSES: 1. Head and neck cancer. 2. Malnutrition. PROCEDURE CARRIED OUT: Placement of gastrostomy tube, open surgical. SURGEON: Mauricio Canales MD RETAIL ATTENDANT: Dr. Horne and Dr. Montes. TYPE OF ANESTHESIA: General. ANESTHESIA ADMINISTERED BY: Dr. Weems ESTIMATED BLOOD LOSS: 25 mL INDICATIONS: The patient is an older man with head and neck cancer who cannot swallow. Attempts were made of percutaneous endoscopic placement where a discussion was had regarding that and the elementary education teacher down the road attempted. Percutaneous attempt with ultrasound or image guidance were also discussed and was felt not to be accessible due to the location of stomach under the ribs. OPERATIVE FINDINGS: The tube was inserted in the mid portion of the stomach. There was a double loop placed together and this was tacked up against the abdominal wall. In addition, balloon was inflated and it was in good position. DESCRIPTION OF PROCEDURE: The patient was given general anesthesia, intravenous antibiotics, and midline incision was carried out. We identified the stomach, processed down adjacent to the abdominal wall, placed a double purse string, placed the tube through the skin into the tube and then secured it into position. After this had been done, we then closed the abdomen with running sutures of Novafil and PDS, closed the skin with skin clips. Blood loss for the procedure was 25 mL. OPERATION CARRIED OUT: Open surgical gastrostomy. Mauricio Canales Jr., MD cc: Rey Colby MD
[2017-08-22 07:47] LABS: BASO % 0.3 % (0.0-2.0); EOS # 0.2 K/uL (0.0-0.7); EOS % 2.5 % (0.0-4.0); HEMOGLOBIN 12.1 g/dL (12.0-18.0); LYMPH # 0.5 K/uL (1.0-4.3); LYMPH % 5.4 % (20.0-40.0); MEAN CORPUSCULAR HEMOGLOBIN 30.7 pg (27.0-31.0); MEAN CORPUSCULAR HGB CONC 33.4 g/dL (33.0-37.0); MEAN PLATELET VOLUME 7.4 fL (7.2-11.7); MONO # 0.6 K/uL (0.0-0.8); MONO % 6.4 % (0.0-10.0); NEUT # 7.4 K/uL (1.8-7.0); NEUT % 85.4 % (50.0-75.0); PLATELET COUNT 197 K/uL (130-400); RBC 3.93 Mil/uL (4.40-5.90); RED CELL DISTRIBUTION WIDTH 15.8 % (11.5-14.5); WHITE BLOOD COUNT 8.7 K/uL (4.8-10.8)
--- NOTE | 2017-08-22 08:15 | CP.PCM.PN ---
Subjective - Date & Time of Evaluation Date of Evaluation: 08/22/17 Time of Evaluation: 08:10 - Subjective Subjective: Pt n complain. no CP, mild cough, no SOB, (+) unable to w swallow saliva. no nausea nor diarrhea Objective - Vital Signs/Intake and Output Vital Signs (last 24 hours): Temp Pulse Resp BP Pulse Ox 98.6 F 86 20 125/81 96 08/21/17 23:30 08/21/17 23:30 08/21/17 23:30 08/21/17 23:30 08/21/17 23:30 - Medications Medications: Current Medications Albuterol/Ipratropium (Duoneb 3 Mg/0.5 Mg (3 Ml) Ud) 3 ml INH RQ6 PRN PRN Reason: Cough and congestion Famotidine (Pepcid) 20 mg IVP DAILY [facility] Last Admin: 08/21/17 10:15 Dose: 20 mg Fat Emulsion Intravenous (Intralipid 20%) 500 mls @ 42 mls/hr IV MWF [facility] Stop: 08/26/17 09:01 Last Admin: 08/20/17 09:00 Dose: Not Given Ceftriaxone Sodium 1 gm/ (Sodium Chloride) 100 mls @ 200 mls/hr IVPB Q24H [facility] Stop: 08/26/17 12:01 Last Admin: 08/21/17 12:00 Dose: Not Given Dextrose/Sodium Chloride (Dextrose 5%/0.45% Ns 1000 Ml) 1,000 mls @ 75 mls/hr IV .[id number] [facility] Last Admin: 08/21/17 10:15 Dose: 75 mls/hr Morphine Sulfate (Morphine) 2 mg IVP Q4 PRN PRN Reason: Pain, moderate (4-7) Last Admin: 08/21/17 15:57 Dose: 2 mg Nitroglycerin (Nitro-Dur 0.1 Mg/Hr Patch) 1 patch TD DAILY [facility] Last Admin: 08/21/17 10:15 Dose: 1 patch - Labs Labs: 08/22/17 07:30 08/21/17 08:41 PT 11.5 SECONDS (9.7-12.2) 08/18/17 17:47 INR 1.0 08/18/17 17:47 APTT 28 SECONDS (21-34) 08/18/17 17:47 - Constitutional Appears: No Acute Distress - Eye Exam Eye Exam: Normal appearance - ENT Exam ENT Exam: Mucous Membranes Moist - Neck Exam Neck Exam: Full ROM. absent: Lymphadenopathy, Normal Inspection - Respiratory Exam Respiratory Exam: Decreased Breath Sounds, Rhonchi. absent: Rales, Wheezes - Cardiovascular Exam Cardiovascular Exam: REGULAR RHYTHM, +S1, +S2. absent: Gallop, JVD - GI/Abdominal Exam GI & Abdominal Exam: Soft, Tenderness. absent: Mass - Extremities Exam Extremities Exam: Full ROM. absent: Calf Tenderness, Joint Swelling, Pedal Edema Assessment and Plan - Assessment and Plan (Free Text) Assessment: s/p PEG; Throat cancer ESRD For feeding slowly Cont meds for now
[2017-08-22 08:19] LABS: CALCIUM 9.2 mg/dl (8.6-10.4)
--- NOTE | 2017-08-22 09:09 | CP.PCM.PN ---
Subjective - Date & Time of Evaluation Date of Evaluation: 08/22/17 Time of Evaluation: 07:15 - Subjective Subjective: Surgery progress note. Dr. Canales Pt seen and examined at bedside. No acute events overnight. No N/V/D. Pain well controlled. No new complaints. Objective - Vital Signs/Intake and Output Vital Signs (last 24 hours): Temp Pulse Resp BP Pulse Ox 98.2 F 86 18 162/78 H 95 08/22/17 08:26 08/22/17 08:26 08/22/17 08:26 08/22/17 08:26 08/22/17 08:26 - Medications Medications: Current Medications Albuterol/Ipratropium (Duoneb 3 Mg/0.5 Mg (3 Ml) Ud) 3 ml INH RQ6 PRN PRN Reason: Cough and congestion Famotidine (Pepcid) 20 mg IVP DAILY [facility] Last Admin: 08/21/17 10:15 Dose: 20 mg Ceftriaxone Sodium 1 gm/ (Sodium Chloride) 100 mls @ 200 mls/hr IVPB Q24H [facility] Stop: 08/26/17 12:01 Last Admin: 08/21/17 12:00 Dose: Not Given Dextrose/Sodium Chloride (Dextrose 5%/0.45% Ns 1000 Ml) 1,000 mls @ 75 mls/hr IV .[id number] [facility] Last Admin: 08/21/17 10:15 Dose: 75 mls/hr Morphine Sulfate (Morphine) 2 mg IVP Q4 PRN PRN Reason: Pain, moderate (4-7) Last Admin: 08/21/17 15:57 Dose: 2 mg Nitroglycerin (Nitro-Dur 0.1 Mg/Hr Patch) 1 patch TD DAILY [facility] Last Admin: 08/21/17 10:15 Dose: 1 patch - Labs Labs: 08/22/17 07:30 08/22/17 07:30 PT 11.5 SECONDS (9.7-12.2) 08/18/17 17:47 INR 1.0 08/18/17 17:47 APTT 28 SECONDS (21-34) 08/18/17 17:47 - Constitutional Appears: Non-toxic, No Acute Distress - Head Exam Head Exam: ATRAUMATIC, NORMAL INSPECTION, NORMOCEPHALIC - Eye Exam Eye Exam: EOMI - ENT Exam ENT Exam: Mucous Membranes Moist - Respiratory Exam Respiratory Exam: NORMAL BREATHING PATTERN. absent: Accessory Muscle Use, Respiratory Distress - Cardiovascular Exam Cardiovascular Exam: RRR. absent: JVD - GI/Abdominal Exam GI & Abdominal Exam: Soft. absent: Distended, Guarding, Rigid, Tenderness, Rebound Additional comments: Gastrostomy tube in place. Dressing clean, dry and intact. - Extremities Exam Extremities Exam: Normal Inspection. absent: Calf Tenderness - Neurological Exam Neurological Exam: Alert, Awake, Oriented x3 - Psychiatric Exam Psychiatric exam: Normal Affect, Normal Mood - Skin Skin Exam: Dry, Intact, Normal Color, Warm Assessment and Plan - Assessment and Plan (Free Text) Assessment: 72yo M with progressive dysphagia. S/p Bishnu Gastrostomy POD1 Plan: - May start trickle feeds. Advance to goal feeds slowly - Pain management - Dressing changes prn Further recs as per Dr. Parker Giraldo PGY1 surgery pager: [phone]
[2017-08-22] MEDS: Fat Emulsion 20% IV 500 ML IV SCH (09:14)
[2017-08-22] MEDS: Nitroglycerin 0.1 mg/hr Top Patch TD SCH (09:16)
[2017-08-22] MEDS: Dextrose 5%/0.45% NS 1,000 ML IV SCH ×2 (09:17→22:37)
[2017-08-22 10:12] LABS: ANISOCYTOSIS SLIGHT; EOSINOPHIL 1 % (0-4); LYMPHOCYTE 4 % (20-40); MONOCYTE 4 % (0-10); NEUTROPHIL 91 % (50-75); PLATELET ESTIMATE NORMAL (NORMAL); TOTAL CELLS COUNTED 100
[2017-08-22] MEDS: Albuterol-Ipratrop 3 mg / 0.5 (3 ml) UD INH PRN (17:24)
--- NOTE | 2017-08-22 20:27 | CP.PCM.PN ---
Subjective - Date & Time of Evaluation Date of Evaluation: 08/22/17 Time of Evaluation: 20:26 - Subjective Subjective: pt is seen and examined, follow up consult is dictated #[id number] s/p hd today, uf 2 lit, stable tx Objective - Vital Signs/Intake and Output Vital Signs (last 24 hours): Temp Pulse Resp BP Pulse Ox 98.7 F 91 H 20 129/89 96 08/22/17 15:50 08/22/17 15:50 08/22/17 15:50 08/22/17 15:50 08/22/17 15:50 - Medications Medications: Current Medications Albuterol/Ipratropium (Duoneb 3 Mg/0.5 Mg (3 Ml) Ud) 3 ml INH RQ6 PRN PRN Reason: Cough and congestion Last Admin: 08/22/17 17:24 Dose: 3 ml Famotidine (Pepcid) 20 mg IVP DAILY [facility] Last Admin: 08/22/17 09:17 Dose: 20 mg Ceftriaxone Sodium 1 gm/ (Sodium Chloride) 100 mls @ 200 mls/hr IVPB Q24H [facility] Stop: 08/26/17 12:01 Last Admin: 08/22/17 14:48 Dose: 200 mls/hr Dextrose/Sodium Chloride (Dextrose 5%/0.45% Ns 1000 Ml) 1,000 mls @ 75 mls/hr IV .[id number] [facility] Last Admin: 08/22/17 09:17 Dose: Not Given Morphine Sulfate (Morphine) 2 mg IVP Q4 PRN PRN Reason: Pain, moderate (4-7) Last Admin: 08/22/17 20:08 Dose: 2 mg Nitroglycerin (Nitro-Dur 0.1 Mg/Hr Patch) 1 patch TD DAILY [facility] Last Admin: 08/22/17 09:16 Dose: 1 patch - Labs Labs: 08/22/17 07:30 08/22/17 07:30 PT 11.5 SECONDS (9.7-12.2) 08/18/17 17:47 INR 1.0 08/18/17 17:47 APTT 28 SECONDS (21-34) 08/18/17 17:47
--- NOTE | 2017-08-23 09:03 | CP.PCM.PN ---
Subjective - Date & Time of Evaluation Date of Evaluation: 08/23/17 Time of Evaluation: 09:00 - Subjective Subjective: Vascular Surgery Progress Note For Dr. Canales This 72M was seen and examined at bedside. Tmax over 24 hours was 100.5. His incisions are well approximated non erythematous non draining. Receiving tube feeds at primary cares discretion without any reported issues. Pt has no new complaints at this time. Denies chest pain SOB or any other new or concerning symptoms. Objective - Vital Signs/Intake and Output Vital Signs (last 24 hours): Temp Pulse Resp BP Pulse Ox 98.5 F 82 20 140/82 94 L 08/23/17 07:15 08/23/17 07:15 08/23/17 07:15 08/23/17 07:15 08/23/17 07:15 Intake and Output: 08/23/17 08/23/17 06:59 18:59 Intake Total 200 Output Total 200 Balance 0 - Medications Medications: Current Medications Albuterol/Ipratropium (Duoneb 3 Mg/0.5 Mg (3 Ml) Ud) 3 ml INH RQ6 PRN PRN Reason: Cough and congestion Last Admin: 08/22/17 17:24 Dose: 3 ml Famotidine (Pepcid) 20 mg IVP DAILY [facility] Last Admin: 08/22/17 09:17 Dose: 20 mg Ceftriaxone Sodium 1 gm/ (Sodium Chloride) 100 mls @ 200 mls/hr IVPB Q24H [facility] Stop: 08/26/17 12:01 Last Admin: 08/22/17 14:48 Dose: 200 mls/hr Dextrose/Sodium Chloride (Dextrose 5%/0.45% Ns 1000 Ml) 1,000 mls @ 75 mls/hr IV .[id number] [facility] Last Admin: 08/22/17 22:37 Dose: 75 mls/hr Morphine Sulfate (Morphine) 2 mg IVP Q4 PRN PRN Reason: Pain, moderate (4-7) Last Admin: 08/22/17 20:08 Dose: 2 mg Nitroglycerin (Nitro-Dur 0.1 Mg/Hr Patch) 1 patch TD DAILY [facility] Last Admin: 08/22/17 09:16 Dose: 1 patch - Labs Labs: 08/22/17 07:30 08/22/17 07:30 PT 11.5 SECONDS (9.7-12.2) 08/18/17 17:47 INR 1.0 08/18/17 17:47 APTT 28 SECONDS (21-34) 08/18/17 17:47 - Constitutional Appears: Non-toxic, No Acute Distress - Head Exam Head Exam: ATRAUMATIC, NORMAL INSPECTION, NORMOCEPHALIC - Eye Exam Eye Exam: EOMI - ENT Exam ENT Exam: Mucous Membranes Moist - Respiratory Exam Respiratory Exam: NORMAL BREATHING PATTERN. absent: Accessory Muscle Use, Respiratory Distress - Cardiovascular Exam Cardiovascular Exam: RRR. absent: JVD - GI/Abdominal Exam GI & Abdominal Exam: Soft. absent: Distended, Guarding, Rigid, Tenderness, Rebound Additional comments: Gastrostomy tube in place. Dressings removed incisions look well - Extremities Exam Extremities Exam: Normal Inspection. absent: Calf Tenderness - Neurological Exam Neurological Exam: Alert, Awake, Oriented x3 - Psychiatric Exam Psychiatric exam: Normal Affect, Normal Mood - Skin Skin Exam: Dry, Intact, Normal Color, Warm Assessment and Plan - Assessment and Plan (Free Text) Assessment: 72yo M with progressive dysphagia. S/p Bishnu Gastrostomy POD2 Plan: - Continue to advance feeds to [place] - Pain management - Dressing changes prn D/W Dr. Parker Julian PGY2
[2017-08-23] MEDS: Nitroglycerin 0.1 mg/hr Top Patch TD SCH (10:03)
[2017-08-23 11:44] LABS: MEAN CORPUSCULAR HGB CONC 33.3 g/dL (33.0-37.0)
[2017-08-23 12:08] LABS: BASO % 0.7 % (0.0-2.0); EOS # 0.2 K/uL (0.0-0.7); EOS % 3.3 % (0.0-4.0); HEMOGLOBIN 12.7 g/dL (12.0-18.0); LYMPH # 0.4 K/uL (1.0-4.3); MEAN CELL VOLUME 92.8 fL (80.0-94.0); MEAN CORPUSCULAR HEMOGLOBIN 30.9 pg (27.0-31.0); MEAN PLATELET VOLUME 8.8 fL (7.2-11.7); MONO # 0.6 K/uL (0.0-0.8); MONO % 8.2 % (0.0-10.0); NEUT % 82.8 % (50.0-75.0); RED CELL DISTRIBUTION WIDTH 16.6 % (11.5-14.5); WHITE BLOOD COUNT 7.2 K/uL (4.8-10.8)
[2017-08-23 12:13] LABS: ALB/GLOB RATIO 0.9 (1.0-2.1); ALBUMIN 3.9 g/dL (3.5-5.0); CALCIUM 9.4 mg/dl (8.6-10.4)
[2017-08-23 12:16] LABS: PLATELET COUNT 182 K/uL (130-400)
[2017-08-23 12:32] LABS: ANISOCYTOSIS SLIGHT; BANDS 3 % (0-2); EOSINOPHIL 2 % (0-4); LYMPHOCYTE 6 % (20-40); MONOCYTE 10 % (0-10); NEUTROPHIL 79 % (50-75); PLATELET ESTIMATE NORMAL (NORMAL); TOTAL CELLS COUNTED 100
[2017-08-23 12:33] LABS: OVALOCYTES SLIGHT
--- NOTE | 2017-08-23 14:23 | CP.PCM.PN ---
Subjective - Date & Time of Evaluation Date of Evaluation: 08/23/17 Time of Evaluation: 14:21 - Subjective Subjective: S: No fever. Feels brandie. Objective - Vital Signs/Intake and Output Vital Signs (last 24 hours): Temp Pulse Resp BP Pulse Ox 98.5 F 82 20 140/82 94 L 08/23/17 07:15 08/23/17 07:15 08/23/17 07:15 08/23/17 07:15 08/23/17 07:15 Intake and Output: 08/23/17 08/23/17 06:59 18:59 Intake Total 200 Output Total 200 Balance 0 - Medications Medications: Current Medications Albuterol/Ipratropium (Duoneb 3 Mg/0.5 Mg (3 Ml) Ud) 3 ml INH RQ6 PRN PRN Reason: Cough and congestion Last Admin: 08/22/17 17:24 Dose: 3 ml Famotidine (Pepcid) 20 mg IVP DAILY [facility] Last Admin: 08/23/17 10:03 Dose: 20 mg Ceftriaxone Sodium 1 gm/ (Sodium Chloride) 100 mls @ 200 mls/hr IVPB Q24H [facility] Stop: 08/26/17 12:01 Last Admin: 08/22/17 14:48 Dose: 200 mls/hr Dextrose/Sodium Chloride (Dextrose 5%/0.45% Ns 1000 Ml) 1,000 mls @ 75 mls/hr IV .[id number] [facility] Last Admin: 08/22/17 22:37 Dose: 75 mls/hr Morphine Sulfate (Morphine) 2 mg IVP Q4 PRN PRN Reason: Pain, moderate (4-7) Last Admin: 08/23/17 13:17 Dose: 2 mg Nitroglycerin (Nitro-Dur 0.1 Mg/Hr Patch) 1 patch TD DAILY [facility] Last Admin: 08/23/17 10:03 Dose: 1 patch - Labs Labs: 08/23/17 11:18 08/23/17 11:18 PT 11.5 SECONDS (9.7-12.2) 18 17:47 INR 1.0 08/18/17 17:47 APTT 28 SECONDS (21-34) 08/18/17 17:47 - Constitutional Appears: Chronically Ill - Head Exam Head Exam: NORMAL INSPECTION - Eye Exam Pupil Exam: NORMAL ACCOMODATION - ENT Exam ENT Exam: Mucous Membranes Dry - Neck Exam Neck Exam: Tenderness - Respiratory Exam Respiratory Exam: NORMAL BREATHING PATTERN - Cardiovascular Exam Cardiovascular Exam: REGULAR RHYTHM - GI/Abdominal Exam GI & Abdominal Exam: Soft (GT tube noted) - Rectal Exam Rectal Exam: Deferred - Extremities Exam Extremities Exam: Normal Inspection Assessment and Plan (1) Dysphagia Status: Acute (2) Cancer of neck Status: Acute (3) Hypertension Status: Acute (4) ESRD needing dialysis Status: Acute - Assessment and Plan (Free Text) Assessment: A/P: Contine medications
[2017-08-23] MEDS: Dextrose 5%/0.45% NS 1,000 ML IV SCH (14:32)
--- NOTE | 2017-08-23 16:09 | CP.PCM.PN ---
Subjective - Date & Time of Evaluation Date of Evaluation: 08/23/17 Time of Evaluation: 16:09 - Subjective Subjective: pt is seen and examined, follow up consult is dictated #[id number] hd on friday , 08/25/2017 Objective - Vital Signs/Intake and Output Vital Signs (last 24 hours): Temp Pulse Resp BP Pulse Ox 99.4 F 107 H 20 154/95 H 92 L 08/23/17 15:25 08/23/17 15:25 08/23/17 15:25 08/23/17 15:25 08/23/17 15:25 Intake and Output: 08/23/17 08/23/17 06:59 18:59 Intake Total 200 Output Total 200 Balance 0 - Medications Medications: Current Medications Albuterol/Ipratropium (Duoneb 3 Mg/0.5 Mg (3 Ml) Ud) 3 ml INH RQ6 PRN PRN Reason: Cough and congestion Last Admin: 08/22/17 17:24 Dose: 3 ml Famotidine (Pepcid) 20 mg IVP DAILY [facility] Last Admin: 08/23/17 10:03 Dose: 20 mg Ceftriaxone Sodium 1 gm/ (Sodium Chloride) 100 mls @ 200 mls/hr IVPB Q24H [facility] Stop: 08/26/17 12:01 Last Admin: 08/23/17 14:31 Dose: 200 mls/hr Dextrose/Sodium Chloride (Dextrose 5%/0.45% Ns 1000 Ml) 1,000 mls @ 75 mls/hr IV .[id number] [facility] Last Admin: 08/23/17 14:32 Dose: 75 mls/hr Morphine Sulfate (Morphine) 2 mg IVP Q4 PRN PRN Reason: Pain, moderate (4-7) Last Admin: 08/23/17 13:17 Dose: 2 mg Nitroglycerin (Nitro-Dur 0.1 Mg/Hr Patch) 1 patch TD DAILY [facility] Last Admin: 08/23/17 10:03 Dose: 1 patch - Labs Labs: 08/23/17 11:18 08/23/17 11:18 PT 11.5 SECONDS (9.7-12.2) 08/18/17 17:47 INR 1.0 08/18/17 17:47 APTT 28 SECONDS (21-34) 08/18/17 17:47
[2017-08-23] MEDS: Albuterol-Ipratrop 3 mg / 0.5 (3 ml) UD INH PRN (20:06)
--- NOTE | 2017-08-23 20:24 | CP.PCM.CON ---
History of Present Illness - History of Present Illness History of Present Illness: reason for consultation: chest congestion and shortness of breath 72M with PMHx significant for ESRD on HD (M,W,F), HTN & throat cancer for which he has had surgery and radiation at [facility] in the past. Pt and sister present at bedside, do not recall what type of cancer he was diagnosed with. Sister states that for the past few months, he hasn't been eating solid food and instead has been requesting shakes/smoothies which are easier for him to swallow. However, over the last few weeks he has been complaining that even the pureed food is coming back up after a while. Pt states he has lost a considerable amount of weight due to his decreased PO intake. Also complaining of cough and unable to bring up phlegm. Because of the head patient has shortness of breath Review of Systems - Review of Systems All systems: reviewed and no additional remarkable complaints except Past Patient History - Infectious Disease Hx of Infectious Diseases: None - Past Medical History & Family History Past Medical History?: Yes - Past Social History Smoking Status: Former Smoker - CARDIAC Hx Cardiac Disorders: Yes (NI 1999,) Hx Hypercholesterolemia: Yes Hx Hypertension: Yes - PULMONARY Hx Respiratory Disorders: No - NEUROLOGICAL HX Cerebrovascular Accident: Yes (CVA) - HEENT Hx HEENT Problems: Yes Other/Comment: DIFFICULTY OF SWALLOWING - RENAL Hx Renal Failure: Yes (ESRD, CKD, AV shunt) - ENDOCRINE/METABOLIC Hx Endocrine Disorders: No - HEMATOLOGICAL/ONCOLOGICAL Hx Blood Disorders: Yes Hx Cancer: Yes (THROAT SURGERY RADIATION) Other/Comment: hx of throat CA - INTEGUMENTARY Hx Dermatological Problems: No - MUSCULOSKELETAL/RHEUMATOLOGICAL Hx Arthritis: Yes (Gout, OA) - GASTROINTESTINAL Hx Gastrointestinal Disorders: No - GENITOURINARY/GYNECOLOGICAL Hx Genitourinary Disorders: No - PSYCHIATRIC Hx Anxiety: Yes (NO MED) Hx Depression: Yes (NO MED) Hx Substance Use: No - SURGICAL HISTORY Hx Arteriovenous Shunt: Yes Hx Herniorrhaphy: Yes Other/Comment: RT LYMPH NODE SURGERY. insertion and removal or portacath. - ANESTHESIA Hx Anesthesia: Yes Hx Anesthesia Reactions: No Hx Malignant Hyperthermia: No Meds Allergies/Adverse Reactions: Allergies Allergy/AdvReac Type Severity Reaction Status Date / Time No Known Allergies Allergy Verified 08/18/17 16:20 - Medications Medications: Current Medications Acetylcysteine (Acetylcysteine 20%) 4 ml INH Q6H [facility] Albuterol/Ipratropium (Duoneb 3 Mg/0.5 Mg (3 Ml) Ud) 3 ml INH RQ6 PRN PRN Reason: Cough and congestion Last Admin: 08/23/17 20:06 Dose: 3 ml Famotidine (Pepcid) 20 mg IVP DAILY [facility] 234 BEDS AT [facility] Last Admin: 08/23/17 10:03 Dose: 20 mg Piperacillin Sod/Tazobactam Sod (Zosyn 2.25 Gm Iv Premix) 2.25 gm in 50 mls @ 100 mls/hr IVPB Q8H [facility] PRN Reason: Protocol Methylprednisolone (Solu-Medrol) 40 mg IVP Q8 [facility] Morphine Sulfate (Morphine) 2 mg IVP Q4 PRN PRN Reason: Pain, moderate (4-7) Last Admin: 08/23/17 13:17 Dose: 2 mg Nitroglycerin (Nitro-Dur 0.1 Mg/Hr Patch) 1 patch TD DAILY [facility] 234 BEDS AT [facility] Last Admin: 08/23/17 10:03 Dose: 1 patch Physical Exam - Head Exam Head Exam: ATRAUMATIC, NORMOCEPHALIC - ENT Exam ENT Exam: Mucous Membranes Moist - Neck Exam Neck exam: Positive for: Normal Inspection - Respiratory Exam Respiratory Exam: Rales, Wheezes - Cardiovascular Exam Cardiovascular Exam: REGULAR RHYTHM - GI/Abdominal Exam GI & Abdominal Exam: Normal Bowel Sounds Results - Vital Signs Recent Vital Signs: Last Vital Signs Temp 99.4 F 08/23/17 15:25 Pulse 107 H 08/23/17 15:25 Resp 20 08/23/17 15:25 BP 154/95 H 08/23/17 15:25 Pulse Ox 92 L 08/23/17 15:25 - Labs Result Diagrams: 08/23/17 11:18 08/23/17 11:18 Labs: Laboratory Results - last 24 hr 08/23/17 08/23/17 11:18 11:18 WBC 7.2 RBC 4.10 L Hgb 12.7 Hct 38.1 MCV 92.8 MCH 30.9 MCHC 33.3 RDW 16.6 H Plt Count 182 MPV 8.8 Neut % (Auto) 82.8 H Lymph % (Auto) 5.0 L [place] % (Auto) 8.2 Eos % (Auto) 3.3 Baso % (Auto) 0.7 Neut # (Auto) 6.0 Lymph # (Auto) 0.4 L [place] # (Auto) 0.6 Eos # (Auto) 0.2 Baso # (Auto) 0.0 Neutrophils % (Manual) 79 H Band Neutrophils % 3 H Lymphocytes % (Manual) 6 L Monocytes % (Manual) 10 Eosinophils % (Manual) 2 Platelet Estimate Normal Anisocytosis (manual) Slight Ovalocytes Slight Sodium 140 Potassium 4.5 Chloride 96 L Carbon Dioxide 28 Anion Gap 21 H BUN 35 H Creatinine 8.7 H* Est GFR ( Amer) 7 Est GFR (Non-Af Amer) 6 Random Glucose 99 Calcium 9.4 Total Bilirubin 0.7 AST 24 ALT 16 L D Alkaline Phosphatase 64 Total Protein 8.0 Albumin 3.9 Globulin 4.1 H Albumin/Globulin Ratio 0.9 L Assessment & Plan (1) Cough Status: Acute Comment: CAT scan of the chest showed atelectasis in the bases. Patient has cough secondary to upper respiratory tract infectionand is unable to bring up phlegm. Start Zosyn. Nebulizer treatment, Mucomyst and steroids (2) Cancer of neck Status: Acute (3) Dysphagia Status: Acute (4) ESRD needing dialysis Status: Acute
[2017-08-23] MEDS: Acetylcysteine 20% Inhal Soln (4ml) INH SCH (21:09)
[2017-08-23] MEDS: Piperacill/Tazo 2.25gm in Dex 2.25 GM/50 ML BAG IVPB SCH (22:03)
[2017-08-23] MEDS: MethylPREDNISolone 40 mg Vial IVP SCH (22:03)
[2017-08-24] MEDS: Acetylcysteine 20% Inhal Soln (4ml) INH SCH ×4 (01:36→20:44)
[2017-08-24] MEDS: Piperacill/Tazo 2.25gm in Dex 2.25 GM/50 ML BAG IVPB SCH ×3 (04:58→20:33)
[2017-08-24] MEDS: MethylPREDNISolone 40 mg Vial IVP SCH ×3 (05:00→21:34)
[2017-08-24] MEDS: Albuterol-Ipratrop 3 mg / 0.5 (3 ml) UD INH PRN (07:48)
--- NOTE | 2017-08-24 08:00 | CP.PCM.PN ---
Subjective - Date & Time of Evaluation Date of Evaluation: 08/24/17 Time of Evaluation: 07:58 - Subjective Subjective: Subjective: Vascular Surgery Progress Note For Dr. Canales This 72M was seen and examined at bedside. No fevers over 24hr. His incisions are well approximated non erythematous non draining. Receiving tube feeds at primary cares discretion with emesis. Denies chest pain SOB or any other new or concerning symptoms. Objective - Vital Signs/Intake and Output Vital Signs (last 24 hours): Temp Pulse Resp BP Pulse Ox 98.4 F 100 H 20 146/86 93 L 08/24/17 04:30 08/24/17 00:06 08/24/17 00:06 08/24/17 00:06 08/24/17 00:06 - Medications Medications: Current Medications Acetylcysteine (Acetylcysteine 20%) 4 ml INH RQ6 [facility] Last Admin: 08/24/17 01:36 Dose: Not Given Albuterol/Ipratropium (Duoneb 3 Mg/0.5 Mg (3 Ml) Ud) 3 ml INH RQ6 PRN PRN Reason: Cough and congestion Last Admin: 08/23/17 20:06 Dose: 3 ml Famotidine (Pepcid) 20 mg IVP DAILY [facility] Last Admin: 08/23/17 10:03 Dose: 20 mg Piperacillin Sod/Tazobactam Sod (Zosyn 2.25 Gm Iv Premix) 2.25 gm in 50 mls @ 100 mls/hr IVPB Q8H [facility] PRN Reason: Protocol Last Admin: 08/24/17 04:58 Dose: 100 mls/hr Methylprednisolone (Solu-Medrol) 40 mg IVP Q8 [facility] Last Admin: 08/24/17 05:00 Dose: 40 mg Morphine Sulfate (Morphine) 2 mg IVP Q4 PRN PRN Reason: Pain, moderate (4-7) Last Admin: 08/23/17 13:17 Dose: 2 mg Nitroglycerin (Nitro-Dur 0.1 Mg/Hr Patch) 1 patch TD DAILY [facility] Last Admin: 08/23/17 10:03 Dose: 1 patch - Labs Labs: 08/23/17 11:18 08/23/17 11:18 PT 11.5 SECONDS (9.7-12.2) 08/18/17 17:47 INR 1.0 08/18/17 17:47 APTT 28 SECONDS (21-34) 08/18/17 17:47 - Constitutional Appears: Non-toxic, No Acute Distress - Head Exam Head Exam: ATRAUMATIC, NORMAL INSPECTION, NORMOCEPHALIC - Eye Exam Eye Exam: EOMI - ENT Exam ENT Exam: Mucous Membranes Moist - Respiratory Exam Respiratory Exam: NORMAL BREATHING PATTERN. absent: Accessory Muscle Use, Respiratory Distress - Cardiovascular Exam Cardiovascular Exam: RRR. absent: JVD - GI/Abdominal Exam GI & Abdominal Exam: Soft. absent: Distended, Guarding, Rigid, Tenderness, Rebound Additional comments: Gastrostomy tube in place. Dressings removed incisions look well - Extremities Exam Extremities Exam: Normal Inspection. absent: Calf Tenderness - Neurological Exam Neurological Exam: Alert, Awake, Oriented x3 - Psychiatric Exam Psychiatric exam: Normal Affect, Normal Mood - Skin Skin Exam: Dry, Intact, Normal Color, Warm Assessment and Plan - Assessment and Plan (Free Text) Assessment: 72yo M with progressive dysphagia. S/p Bishnu Gastrostomy POD3 Plan: - Consider tube feed pump with trickle feeds and gradual advancement to goal - Pain management - Dressing changes prn D/W Dr. Canales
[2017-08-24] MEDS: Dextrose 5%/0.45% NS 1,000 ML IV SCH (09:52)
[2017-08-24] MEDS: Nitroglycerin 0.1 mg/hr Top Patch TD SCH (09:54)
--- NOTE | 2017-08-24 10:26 | CP.PCM.PN ---
Subjective - Date & Time of Evaluation Date of Evaluation: 08/24/17 Time of Evaluation: 10:26 - Subjective Subjective: pt is seeen and examined, follow up consult is dictated #[id number] hd in am Objective - Vital Signs/Intake and Output Vital Signs (last 24 hours): Temp Pulse Resp BP Pulse Ox 98.4 F 100 H 20 146/86 93 L 08/24/17 04:30 08/24/17 00:06 08/24/17 00:06 08/24/17 00:06 08/24/17 00:06 - Medications Medications: Current Medications Acetylcysteine (Acetylcysteine 20%) 4 ml INH RQ6 [facility] Last Admin: 08/24/17 01:36 Dose: Not Given Albuterol/Ipratropium (Duoneb 3 Mg/0.5 Mg (3 Ml) Ud) 3 ml INH RQ6 PRN PRN Reason: Cough and congestion Last Admin: 08/23/17 20:06 Dose: 3 ml Famotidine (Pepcid) 20 mg IVP DAILY [facility] Last Admin: 08/24/17 09:54 Dose: 20 mg Piperacillin Sod/Tazobactam Sod (Zosyn 2.25 Gm Iv Premix) 2.25 gm in 50 mls @ 100 mls/hr IVPB Q8H [facility] PRN Reason: Protocol Last Admin: 08/24/17 04:58 Dose: 100 mls/hr Methylprednisolone (Solu-Medrol) 40 mg IVP Q8 [facility] Last Admin: 08/24/17 05:00 Dose: 40 mg Morphine Sulfate (Morphine) 2 mg IVP Q4 PRN PRN Reason: Pain, moderate (4-7) Last Admin: 08/24/17 10:21 Dose: 2 mg Nitroglycerin (Nitro-Dur 0.1 Mg/Hr Patch) 1 patch TD DAILY [facility] Last Admin: 08/24/17 09:54 Dose: 1 patch - Labs Labs: 08/23/17 11:18 08/23/17 11:18 PT 11.5 SECONDS (9.7-12.2) 08/18/17 17:47 INR 1.0 08/18/17 17:47 APTT 28 SECONDS (21-34) 08/18/17 17:47
--- NOTE | 2017-08-24 13:37 | PN ---
DATE: 08/24/2017 LOCATION: The patient is located in room 557, bed A. REQUESTED BY: Luis A Guthrie MD REASON FOR FOLLOWUP: End-stage renal disease condition with hemodialysis Friday, Friday, Friday. HISTORY OF PRESENT ILLNESS: Mr. Franks is a 72-year-old elderly male with a past medical history significant for longstanding hypertension, CVA, end-stage renal disease, and CA of the right tonsil, status post radiation and chemotherapy, was admitted with chief complaints of difficulty to swallow, dysphagia even for the liquids and saliva and weight loss. Subsequently, the patient underwent PEG tube placement by Dr. Canales. The patient is not in distress. Denies any chest pain or palpitation. Denies any fever. Occasional cough. No abdominal pain. No nausea or vomiting. No diarrhea. PHYSICAL EXAMINATION: VITAL SIGNS: As follows: Blood pressure 146/86, pulse 100, respirations 20, temperature 99.7, saturation 93% on 2 liters nasal cannula. Height 5 feet 11 inches, weight is 68.5 kg post dialysis on Friday. GENERAL: Mr. Franks is a 72-year-old elderly male, moderately built, moderate nourished, not in distress. HEENT: Pupils normal and reactive to light and accommodation. Conjunctivae pink. Sclerae anicteric. Tongue is moist. NECK: No thyroid enlargement. LUNGS: Symmetric on both sides bilaterally. Breath sounds present. Clear on auscultation. CVS: [place] at the fifth intercostal space, midclavicular line. S1, S2 audible. No murmur or gallop. ABDOMEN: Status post PEG tube placement. ABDOMEN: Soft, tympanic. No guarding. No rigidity. No hepatosplenomegaly. CHILD ABUSE WORKER: The patient is alert, awake, oriented x3. Nonfocal neuro examination. Cranial nerves II through XII grossly intact. Sensory and motor system is within normal limits. EXTREMITIES: No cyanosis, no clubbing, no edema. CURRENT MEDICATIONS: Include as follows: Acetylcysteine inhaler q.6 hours, DuoNeb inhaler 3 mL q.6 hours, and morphine 2 mg IV q.4 p.r.n., Nitro-Dur patch 0.1 mg per hour patch daily, Pepcid 20 mg IV daily, Solu-Medrol 40 mg IV q.8 hours, and Zosyn 2.25 gm IV q.8 hours. ASSESSMENT AND PLAN: In summary, Mr. Franks is a [id number] male with history of hypertension, cerebrovascular accident, end-stage renal disease, carcinoma of the right tonsil, status post chemo and radiation therapy, was admitted with difficulty to swallow even liquids and saliva, cough, regurgitation of the food, and weight loss of more than 20 to 30 pounds, status post PEG tube placement. 1. End-stage renal disease. Continue hemodialysis three times a week Friday, Friday, Friday. 2. Hypertension. Blood pressure is stable. Continue Nitro-Dur patch. 3. Dysphagia secondary to carcinoma of the tonsil and mass compressing. PLAN: Continue gentle IV hydration. Advance feeding as tolerated as recommended by the Surgery Team. We will follow with you. Thank you for allowing me to participate in your patient's care. Continue IV antibiotics, Zosyn. Akshat Pak MD
[2017-08-24] MEDS ORDERED: Vitamins A & D Oint UD Foilpak TOP PRN (15:55)
[2017-08-25] MEDS: Acetylcysteine 20% Inhal Soln (4ml) INH SCH ×4 (01:52→19:48)
[2017-08-25] MEDS: Dextrose 5%/0.45% NS 1,000 ML IV SCH (02:38)
[2017-08-25] MEDS: Piperacill/Tazo 2.25gm in Dex 2.25 GM/50 ML BAG IVPB SCH ×3 (03:31→19:42)
[2017-08-25] MEDS: MethylPREDNISolone 40 mg Vial IVP SCH ×3 (07:44→21:22)
[2017-08-25] MEDS: Albuterol-Ipratrop 3 mg / 0.5 (3 ml) UD INH PRN ×3 (08:04→19:47)
--- NOTE | 2017-08-25 09:38 | CP.PCM.PN ---
Subjective - Date & Time of Evaluation Date of Evaluation: 08/25/17 Time of Evaluation: 09:15 - Subjective Subjective: Pt in HD. no CP, elisa dec cough, no n/v, no diarrhea Objective - Vital Signs/Intake and Output Vital Signs (last 24 hours): Temp Pulse Resp BP Pulse Ox 97.3 F L 89 18 160/91 H 98 08/25/17 07:15 08/25/17 07:15 08/25/17 07:15 08/25/17 07:15 08/25/17 07:15 - Medications Medications: Current Medications Acetylcysteine (Acetylcysteine 20%) 4 ml INH RQ6 [facility] Last Admin: 08/25/17 08:04 Dose: 4 ml Albuterol/Ipratropium (Duoneb 3 Mg/0.5 Mg (3 Ml) Ud) 3 ml INH RQ6 PRN PRN Reason: Cough and congestion Last Admin: 08/25/17 08:04 Dose: 3 ml Famotidine (Pepcid) 20 mg IVP DAILY [facility] Last Admin: 08/24/17 09:54 Dose: 20 mg Piperacillin Sod/Tazobactam Sod (Zosyn 2.25 Gm Iv Premix) 2.25 gm in 50 mls @ 100 mls/hr IVPB Q8H [facility] PRN Reason: Protocol Last Admin: 08/25/17 03:31 Dose: 100 mls/hr Methylprednisolone (Solu-Medrol) 40 mg IVP Q8 [facility] Last Admin: 08/25/17 07:44 Dose: 40 mg Morphine Sulfate (Morphine) 1 mg IVP Q4 PRN PRN Reason: Pain, moderate (4-7) Nitroglycerin (Nitro-Dur 0.1 Mg/Hr Patch) 1 patch TD DAILY [facility] Last Admin: 08/24/17 09:54 Dose: 1 patch Vitamin A (Vitamin A & D Oint Ud Foilpak) 1 ea TOP BID PRN PRN Reason: Other - Labs Labs: 08/23/17 11:18 08/23/17 11:18 PT 11.5 SECONDS (9.7-12.2) 08/18/17 17:47 INR 1.0 08/18/17 17:47 APTT 28 SECONDS (21-34) 08/18/17 17:47 - Constitutional Appears: No Acute Distress - Eye Exam Eye Exam: Normal appearance - ENT Exam ENT Exam: Mucous Membranes Moist - Neck Exam Neck Exam: Full ROM. absent: Lymphadenopathy - Respiratory Exam Respiratory Exam: Decreased Breath Sounds. absent: Rales, Rhonchi, Wheezes - GI/Abdominal Exam GI & Abdominal Exam: Soft. absent: Tenderness, Mass - Extremities Exam Extremities Exam: Full ROM, Normal Capillary Refill. 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
--- NOTE | 2017-08-25 10:34 | PN ---
DATE: 08/23/2017 FOLLOWUP RENAL CONSULTATION LOCATION: The patient is located in room 557, bed A. REASON FOR RENAL CONSULTATION: End-stage renal disease, continuation of hemodialysis. REQUESTING PHYSICIAN: Luis A Guthrie MD. SUBJECTIVE: Mr. Golden Moy is a 72-year-old, elderly male with a past medical history significant for longstanding hypertension, CVA, endstage renal disease, CA of right tonsil, status post surgery, radiation and chemotherapy, was admitted with chief complaints of weight loss, difficulty to swallow and foul smelling from the mouth and the patient was agreeable for PEG tube placement. Initially, PEG was attempted by Interventional Radiology, which was not possible due to his high position of the stomach and subsequently PEG tube was placed by Dr. Canales. The patient is not in acute distress. He denies any complaints. No chest pain, no palpation, no fever, no cough, no abdominal pain. He still complains of dysphagia. PHYSICAL EXAMINATION: VITAL SIGNS: Blood pressure is 154/95, pulse 107, respirations 20, temperature 99.4, saturation 92%, height 5 feet 11 inches, weight is 68.5 kilos post dialysis as of yesterday. GENERAL: Mr. Franks is a 72-year-old elderly male, moderately built, moderately nourished, not in distress. HEENT: Pupils normal and reactive to light and accommodation. Conjunctivae pink. Sclerae anicteric. Tongue is moist and no thyroid enlargement. NECK: The patient has a discoloration of the skin on the right side of the neck. LUNGS: Symmetric on both sides. Bilateral breath sounds present. No crackles. CARDIOVASCULAR: [place] at the fifth intercostal space, midclavicular line. S1, S2 audible. No murmur or gallop. ABDOMEN: Normal in appearance, soft, tympanic. No guarding. No rigidity. No hepatosplenomegaly. CENTRAL NERVOUS SYSTEM: The patient is alert, awake, and oriented x3. Nonfocal neuro examination. Cranial nerves II through XII grossly intact. Sensory and motor system is within normal limits. EXTREMITIES: No cyanosis, no clubbing, no edema. Status post PEG tube placement. CURRENT MEDICATIONS: Include acetylcysteine 4 mL inhaler q. 6 hours, DuoNeb inhaler, also morphine 2 mg IV q. 4 hours p.r.n., nitroglycerin ointment 1 mg per hour patch daily, Pepcid 20 mg IV piggyback daily, Solu-Medrol 40 mg IV q. 8 hours and Zosyn 2.25 g IV q. 8 hours. LABORATORY DATA: Include as follows, as of 08/23/2017, WBC 7.2, ageidhhyev15.7, hematocrit is 38.1, platelets 182, neutrophils 79, bands 3, lymph 6, monos 10, eosinophils 2. Sodium 140, potassium 4.5, chloride 98, CO2 of 28, BUN 35, creatinine 8.7, glucose 99, calcium 9.4. Total bilirubin 0.7, AST 24, ALT 16, alkaline phosphatase 64, total protein 8, albumin is 3.9. ASSESSMENT: In summary, Mr. Golden Moy is a 72-year-old elderly male with a history of hypertension, cerebrovascular accident, end-stage renal disease, cancer of the tonsils, status post surgery, radiation and chemotherapy, was admitted with dysphagia and weight loss. 1. Endstage renal disease. Continue hemodialysis 3 times a week, Friday, Friday, Friday. 2. Hypertension. Blood pressure is stable. 3. Weight loss secondary to dysphagia and malignancy. Continue his current medications. Continue percutaneous endoscopic gastrostomy feeding as tolerated as recommended by Surgery and follow up with heme/oncologist Dr. Colby. Thank you for allowing me to participate in your patient's care. We will schedule for hemodialysis on Friday. Akshat Pak MD MTDD
--- NOTE | 2017-08-25 10:55 | PN ---
DATE: 08/22/2017 FOLLOWUP RENAL CONSULTATION LOCATION: Patient is located in room 557, bed A. REQUESTED BY: Luis A Guthrie MD REASON FOR FOLLOWUP: End-stage renal disease, continuation of the hemodialysis. SUBJECTIVE: Mr. Golden Thakkar is a 72-year-old elderly -[place] male with a past medical history significant for hypertension; CVA; end-stage renal disease; CA of the tonsil on the right side, status post surgery, radiation and chemotherapy, who was admitted with the chief complaints of weight loss and difficulty to swallow even saliva and also regurgitation of the food. Patient was admitted for possible PEG tube placement. Patient underwent PEG tube placement by the Surgery yesterday. Patient is not in any acute distress, No abdominal pain,No nausea or vomiting. PHYSICAL EXAMINATION: VITAL SIGNS: Blood pressure this evening 129/89, pulse 91, respirations 20, temperature 98.7, saturation 96%. Height 5 feet 11 inches, and weight is 68.5 post dialysis. GENERAL: Mr. Franks is a 72-year-old elderly -[place] male, moderately built, moderately nourished, not in acute distress. HEENT: Pupils normal and reactive to light and accommodation. Conjunctivae pink. Sclerae anicteric. Tongue is dry and lips are dry. Trachea is midline. Patient has discoloration of the skin on the right side of the face and the neck, and foul smelling from the mouth. LUNGS: Symmetric on both sides. Bilateral breath sounds present. Clear on auscultation. CARDIOVASCULAR SYSTEM: [place] at the fifth intercostal space, midclavicular line. S1, S2 audible. No murmur or gallop. ABDOMEN: Normal in appearance, status post PEG tube placement. Soft and tympanic. No guarding. No rigidity. No hepatosplenomegaly. CENTRAL NERVOUS SYSTEM: Patient is alert, awake, oriented x3. Nonfocal neuro examination. Cranial nerves II through XII grossly intact. Sensory and motor system is within normal limits. EXTREMITIES: No cyanosis. No clubbing. No edema. LABORATORY DATA: His laboratory data include as follows: As of 08/22/2017, WBC 8.7, hemoglobin 12.1, hematocrit 36.2, platelets 197. Sodium 142, potassium 5.6, chloride 96, CO2 27, BUN 56, creatinine 10.6, glucose 112, calcium 9.2, total bili 0.5, AST 20, ALT 13, alkaline phosphatase 64. Total protein 7.8, albumin is 4. ASSESSMENT AND PLAN: In summary again, Mr. Jagdish Franks is a 72-year-old elderly -[place] male with a history of hypertension; cerebrovascular accident; end-stage renal disease; cancer of the right tonsil, status post surgery, radiation, chemotherapy with dysphagia and vomiting and weight loss, status post percutaneous endoscopic gastrostomy tube placement. 1. End-stage renal disease. Continue hemodialysis three times a week; Friday, Friday, Friday. Patient underwent dialysis today and had ultrafiltration of about 2 liters. 2. Hypertension. Blood pressure is stable. Continue his current Nitro-Dur patch 1 mg per hour daily. Continue his intravenous hydration, D5 half normal saline at 75 mL per hour. Continue Rocephin, DuoNeb inhaler, morphine and Pepcid 20 mg intravenous daily. 3. Weight loss secondary to decreased p.o. intake and dysphagia secondary to cancer of the tonsil. Follow up with Surgery and advance diet as tolerated if okay to the Surgery. Thank you for allowing me to participate in your patient's care. Akshat Pak MD MTDD
--- NOTE | 2017-08-25 13:08 | CP.PCM.PN ---
Subjective - Date & Time of Evaluation Date of Evaluation: 08/25/17 Time of Evaluation: 13:08 - Subjective Subjective: pt is seen and examined, follow up consult is dictated #[id number] s/p hd today Objective - Vital Signs/Intake and Output Vital Signs (last 24 hours): Temp Pulse Resp BP Pulse Ox 97.3 F L 73 19 133/91 H 99 08/25/17 12:15 08/25/17 12:15 08/25/17 12:15 08/25/17 12:15 08/25/17 12:15 - Medications Medications: Current Medications Acetylcysteine (Acetylcysteine 20%) 4 ml INH RQ6 DAGMAR Last Admin: 08/25/17 08:04 Dose: 4 ml Albuterol/Ipratropium (Duoneb 3 Mg/0.5 Mg (3 Ml) Ud) 3 ml INH RQ6 PRN PRN Reason: Cough and congestion Last Admin: 08/25/17 08:04 Dose: 3 ml Amlodipine Besylate (Norvasc) 5 mg PO DAILY DAGMAR Last Admin: 08/25/17 10:00 Dose: Not Given Famotidine (Pepcid) 20 mg IVP DAILY DAGMAR Last Admin: 08/25/17 10:00 Dose: Not Given Piperacillin Sod/Tazobactam Sod (Zosyn 2.25 Gm Iv Premix) 2.25 gm in 50 mls @ 100 mls/hr IVPB Q8H DAGMAR PRN Reason: Protocol Last Admin: 08/25/17 03:31 Dose: 100 mls/hr Methylprednisolone (Solu-Medrol) 40 mg IVP Q8 DAGMAR Last Admin: 08/25/17 07:44 Dose: 40 mg Morphine Sulfate (Morphine) 1 mg IVP Q4 PRN PRN Reason: Pain, moderate (4-7) Vitamin A (Vitamin A & D Oint Ud Foilpak) 1 ea TOP BID PRN PRN Reason: Other - Labs Labs: 08/23/17 11:18 08/23/17 11:18 PT 11.5 SECONDS (9.7-12.2) 08/18/17 17:47 INR 1.0 08/18/17 17:47 APTT 28 SECONDS (21-34) 08/18/17 17:47
--- NOTE | 2017-08-25 18:13 | CP.PCM.PN ---
Subjective - Date & Time of Evaluation Date of Evaluation: 08/25/17 Time of Evaluation: 10:00 - Subjective Subjective: Patient seen and examined in dialysis, resting comfortably. Cough and congestion improved. Assessment /Plan 1. Cough secondary to URI - afebrile - continue zosyn - continue duonebs - continue mucomyst - continue solumedrol Objective - Vital Signs/Intake and Output Vital Signs (last 24 hours): Temp Pulse Resp BP Pulse Ox 97.7 F 93 H 20 103/72 95 08/25/17 15:00 08/25/17 15:00 08/25/17 15:00 08/25/17 15:00 08/25/17 15:00 - Medications Medications: Current Medications Acetylcysteine (Acetylcysteine 20%) 4 ml INH RQ6 DAGMAR Last Admin: 08/25/17 12:45 Dose: 4 ml Albuterol/Ipratropium (Duoneb 3 Mg/0.5 Mg (3 Ml) Ud) 3 ml INH RQ6 PRN PRN Reason: Cough and congestion Last Admin: 08/25/17 12:45 Dose: 3 ml Amlodipine Besylate (Norvasc) 5 mg PO DAILY DAGMAR Last Admin: 08/25/17 13:42 Dose: 5 mg Famotidine (Pepcid) 20 mg IVP DAILY DAGMAR Last Admin: 08/25/17 13:51 Dose: 20 mg Piperacillin Sod/Tazobactam Sod (Zosyn 2.25 Gm Iv Premix) 2.25 gm in 50 mls @ 100 mls/hr IVPB Q8H DAGMAR PRN Reason: Protocol Last Admin: 08/25/17 13:51 Dose: 100 mls/hr Methylprednisolone (Solu-Medrol) 40 mg IVP Q8 DAGMAR Last Admin: 08/25/17 13:51 Dose: 40 mg Morphine Sulfate (Morphine) 1 mg IVP Q4 PRN PRN Reason: Pain, moderate (4-7) Vitamin A (Vitamin A & D Oint Ud Foilpak) 1 ea TOP BID PRN PRN Reason: Other - Labs Labs: 08/23/17 11:18 08/23/17 11:18 PT 11.5 SECONDS (9.7-12.2) 08/18/17 17:47 INR 1.0 08/18/17 17:47 APTT 28 SECONDS (21-34) 08/18/17 17:47 Assessment and Plan (1) Cough Status: Acute (2) Cancer of neck Status: Acute (3) Dysphagia Status: Acute (4) ESRD needing dialysis Status: Acute
--- NOTE | 2017-08-25 18:48 | CP.PCM.PN ---
Subjective - Date & Time of Evaluation Date of Evaluation: 08/25/17 Time of Evaluation: 08:00 - Subjective Subjective: Surgery: Dr. Canales Pt seen and examined. States he feels ok and pain is well controlled. Yesterday pt unable to tolerate tube feeds with some episodes of vomiting. Denies F/C. Objective - Vital Signs/Intake and Output Vital Signs (last 24 hours): Temp Pulse Resp BP Pulse Ox 97.7 F 93 H 20 103/72 95 08/25/17 15:00 08/25/17 15:00 08/25/17 15:00 08/25/17 15:00 08/25/17 15:00 - Medications Medications: Current Medications Acetylcysteine (Acetylcysteine 20%) 4 ml INH RQ6 DAGMAR Last Admin: 08/25/17 12:45 Dose: 4 ml Albuterol/Ipratropium (Duoneb 3 Mg/0.5 Mg (3 Ml) Ud) 3 ml INH RQ6 PRN PRN Reason: Cough and congestion Last Admin: 08/25/17 12:45 Dose: 3 ml Amlodipine Besylate (Norvasc) 5 mg PO DAILY DAGMAR Last Admin: 08/25/17 13:42 Dose: 5 mg Famotidine (Pepcid) 20 mg IVP DAILY DAGMAR Last Admin: 08/25/17 13:51 Dose: 20 mg Piperacillin Sod/Tazobactam Sod (Zosyn 2.25 Gm Iv Premix) 2.25 gm in 50 mls @ 100 mls/hr IVPB Q8H DAGMAR PRN Reason: Protocol Last Admin: 08/25/17 13:51 Dose: 100 mls/hr Methylprednisolone (Solu-Medrol) 40 mg IVP Q8 DAGMAR Last Admin: 08/25/17 13:51 Dose: 40 mg Morphine Sulfate (Morphine) 1 mg IVP Q4 PRN PRN Reason: Pain, moderate (4-7) Vitamin A (Vitamin A & D Oint Ud Foilpak) 1 ea TOP BID PRN PRN Reason: Other - Labs Labs: 08/23/17 11:18 08/23/17 11:18 PT 11.5 SECONDS (9.7-12.2) 08/18/17 17:47 INR 1.0 08/18/17 17:47 APTT 28 SECONDS (21-34) 08/18/17 17:47 - Constitutional Appears: No Acute Distress - ENT Exam ENT Exam: Mucous Membranes Moist - Respiratory Exam Respiratory Exam: NORMAL BREATHING PATTERN - Cardiovascular Exam Cardiovascular Exam: RRR - GI/Abdominal Exam GI & Abdominal Exam: Soft. absent: Tenderness Additional comments: Midline incision C/D/I - Neurological Exam Neurological Exam: Alert, Awake, Oriented x3 - Skin Skin Exam: Dry, Warm Assessment and Plan - Assessment and Plan (Free Text) Assessment: 72M s/p gastrostomy tube placement; POD#4 Plan: - will obtain UGIS to evaluate TF intolerance - d/w Dr. Parker Horne, PGY-3
[2017-08-25 21:20] LABS: BASO % 0.1 % (0.0-2.0); HEMOGLOBIN 11.7 g/dL (12.0-18.0); LYMPH # 0.2 K/uL (1.0-4.3); LYMPH % 1.8 % (20.0-40.0); MEAN CELL VOLUME 92.4 fL (80.0-94.0); MEAN CORPUSCULAR HEMOGLOBIN 30.3 pg (27.0-31.0); MEAN CORPUSCULAR HGB CONC 32.8 g/dL (33.0-37.0); MEAN PLATELET VOLUME 7.8 fL (7.2-11.7); MONO # 0.4 K/uL (0.0-0.8); NEUT # 10.7 K/uL (1.8-7.0); NEUT % 94.1 % (50.0-75.0); NRBC % 0.1 % (0.0-2.0); PLATELET COUNT 259 K/uL (130-400); RBC 3.85 Mil/uL (4.40-5.90); WHITE BLOOD COUNT 11.4 K/uL (4.8-10.8)
[2017-08-25 21:41] LABS: ALBUMIN 4.1 g/dL (3.5-5.0); CALCIUM 8.9 mg/dl (8.6-10.4)
[2017-08-25 22:03] LABS: ANISOCYTOSIS SLIGHT; LYMPHOCYTE 1 % (20-40); MONOCYTE 3 % (0-10); NEUTROPHIL 96 % (50-75); PLATELET ESTIMATE NORMAL (NORMAL); TOTAL CELLS COUNTED 100
[2017-08-25 22:04] LABS: HYPOCHROMIC SLIGHT
[2017-08-26] MEDS: Piperacill/Tazo 2.25gm in Dex 2.25 GM/50 ML BAG IVPB SCH ×3 (05:15→19:49)
[2017-08-26] MEDS: MethylPREDNISolone 40 mg Vial IVP SCH ×3 (05:20→21:19)
[2017-08-26 07:48] LABS: BASO % 0.1 % (0.0-2.0); HEMOGLOBIN 11.2 g/dL (12.0-18.0); LYMPH # 0.2 K/uL (1.0-4.3); LYMPH % 1.9 % (20.0-40.0); MEAN CELL VOLUME 91.8 fL (80.0-94.0); MEAN CORPUSCULAR HEMOGLOBIN 30.7 pg (27.0-31.0); MEAN CORPUSCULAR HGB CONC 33.5 g/dL (33.0-37.0); MEAN PLATELET VOLUME 7.8 fL (7.2-11.7); MONO # 0.5 K/uL (0.0-0.8); MONO % 5.3 % (0.0-10.0); NEUT # 9.6 K/uL (1.8-7.0); NEUT % 92.7 % (50.0-75.0); PLATELET COUNT 258 K/uL (130-400); RBC 3.64 Mil/uL (4.40-5.90); RED CELL DISTRIBUTION WIDTH 16.1 % (11.5-14.5); WHITE BLOOD COUNT 10.3 K/uL (4.8-10.8)
[2017-08-26 08:21] LABS: ALB/GLOB RATIO 0.9 (1.0-2.1); ALBUMIN 3.7 g/dL (3.5-5.0); CALCIUM 9.2 mg/dl (8.6-10.4)
[2017-08-26] MEDS: Albuterol-Ipratrop 3 mg / 0.5 (3 ml) UD INH PRN (08:26)
[2017-08-26] MEDS: Acetylcysteine 20% Inhal Soln (4ml) INH SCH ×3 (08:26→20:11)
--- NOTE | 2017-08-26 08:34 | CP.PCM.PN ---
Subjective - Date & Time of Evaluation Date of Evaluation: 08/26/17 Time of Evaluation: 08:15 - Subjective Subjective: Pt no complain; able to tolerate feeding now. No CP, almost no cough, no diarrhea, no more vomiting Objective - Vital Signs/Intake and Output Vital Signs (last 24 hours): Temp Pulse Resp BP Pulse Ox 98.0 F 69 20 129/78 98 08/26/17 07:30 08/26/17 07:30 08/26/17 07:30 08/26/17 07:30 08/26/17 07:30 Intake and Output: 08/26/17 08/26/17 06:59 18:59 Intake Total 600 240 Balance 600 240 - Medications Medications: Current Medications Acetaminophen (Tylenol 325mg Tab) 650 mg PO Q6 PRN PRN Reason: Pain, moderate (4-7) Acetylcysteine (Acetylcysteine 20%) 4 ml INH RQ6 DAGMAR Last Admin: 08/26/17 08:26 Dose: Not Given Albuterol/Ipratropium (Duoneb 3 Mg/0.5 Mg (3 Ml) Ud) 3 ml INH RQ6 PRN PRN Reason: Cough and congestion Last Admin: 08/26/17 08:26 Dose: 3 ml Amlodipine Besylate (Norvasc) 5 mg PO DAILY DAGMAR Last Admin: 08/25/17 13:42 Dose: 5 mg Famotidine (Pepcid) 20 mg IVP DAILY DAGMAR Last Admin: 08/25/17 13:51 Dose: 20 mg Piperacillin Sod/Tazobactam Sod (Zosyn 2.25 Gm Iv Premix) 2.25 gm in 50 mls @ 100 mls/hr IVPB Q8H DAGMAR PRN Reason: Protocol Last Admin: 08/26/17 05:15 Dose: 100 mls/hr Methylprednisolone (Solu-Medrol) 40 mg IVP Q8 DAGMAR Last Admin: 08/26/17 05:20 Dose: 40 mg Vitamin A (Vitamin A & D Oint Ud Foilpak) 1 ea TOP BID PRN PRN Reason: Other - Labs Labs: 08/26/17 07:19 08/26/17 07:19 PT 11.5 SECONDS (9.7-12.2) 08/18/17 17:47 INR 1.0 08/18/17 17:47 APTT 28 SECONDS (21-34) 08/18/17 17:47 - Constitutional Appears: No Acute Distress - Eye Exam Eye Exam: Normal appearance - ENT Exam ENT Exam: Mucous Membranes Dry, Mucous Membranes Moist - Neck Exam Neck Exam: Full ROM. absent: Lymphadenopathy ((+) firmness on right side) - Respiratory Exam Respiratory Exam: Decreased Breath Sounds. absent: Rales, Rhonchi, Wheezes - Cardiovascular Exam Cardiovascular Exam: +S1, +S2. absent: Gallop, REGULAR RHYTHM, JVD, Murmur - Extremities Exam Extremities Exam: Full ROM, Normal Capillary Refill. absent: Calf Tenderness, Joint Swelling, Pedal Edema Assessment and Plan - Assessment and Plan (Free Text) Plan: Throat cancer w/ obstruction HTN, ESRD, Acute Bronchitis ? Aspiration Onco note - Chemo in OPD Cont meds
[2017-08-26 08:42] LABS: LYMPHOCYTE 4 % (20-40); MONOCYTE 4 % (0-10); NEUTROPHIL 92 % (50-75); TOTAL CELLS COUNTED 100
[2017-08-26 08:43] LABS: ANISOCYTOSIS SLIGHT; HYPOCHROMIC SLIGHT; PLATELET ESTIMATE NORMAL (NORMAL)
[2017-08-26 08:45] LABS: POLYCHROMIC SLIGHT
[2017-08-26] MEDS ORDERED: Iohexol 240 200 ML ONE (09:31)
--- NOTE | 2017-08-26 10:22 | PN ---
FOLLOWUP RENAL CONSULTATION DATE: 08/25/2017 LOCATION: The patient is located in room 517, bed A. REQUESTED BY: Luis A Guthrie MD REASON FOR FOLLOWUP: End-stage renal failure, continuation of the hemodialysis. SUBJECTIVE: Mr. Golden Lan is a 72-year-old elderly male with a history of hypertension, CVA, end-stage renal disease, CA of the tonsil, status post surgery, radiation and chemotherapy, was admitted with dysphagia and regurgitation of the food and weight loss. The patient was admitted for a PEG tube placement. The patient complains he is feeling weak and tired since he was admitted to the hospital and he was not getting any feeding and wants to go home. The patient is on n.p.o. and denies any chest pain. No palpitations. No abdominal pain. PHYSICAL EXAMINATION: GENERAL: Mr. Franks is a 72-year-old elderly male, moderately built, moderately nourished, and not in acute distress. VITAL SIGNS: As follows; blood pressure 133/91, pulse 73, respirations 19, temperature 97.3, saturation 99%, and height 5 feet 11 inches. HEENT: Pupils are normal and reactive to light and accommodation. Conjunctivae pink. Sclerae anicteric. Tongue is moist. Trachea is midline. LUNGS: Symmetric on both sides. Bilateral breath sounds present. Clear to auscultation. CARDIOVASCULAR: [place] at the fifth intercostal space, midclavicular line. S1 and S2 audible. No murmur or gallop. ABDOMEN: Normal in appearance, soft, and tympanic. No guarding. No rigidity. No hepatosplenomegaly, status post PEG tube placement. CENTRAL NERVOUS SYSTEM: The patient is alert, awake, and oriented x3. Nonfocal neuro examination. Cranial nerves II through XII grossly intact. Sensory and motor system is within normal limits. EXTREMITIES: No cyanosis. No clubbing. No edema. CURRENT MEDICATIONS: Include acetylcysteine 4 mL inhaler q.6 hours, DuoNeb inhaler q.6 hours, morphine 1 mg IV q.4 hours p.r.n., Norvasc 5 mg daily, Pepcid 20 mg daily, Solu-Medrol 40 mg IV q.8 hours, A and D ointment topical, and Zosyn 2.25 g IV q.8 hours. LABORATORY DATA: Include as follows, as of 08/25/2017; WBC 11.4, hemoglobin 11.7, hematocrit 35.5, platelets 259, neutrophils 96, lymph is 1, and monos 3. Sodium 141, potassium 3.8, chloride 93, CO2 of 26, BUN 37, creatinine 7.9, glucose 134, calcium 8.9, total bili 0.3, AST 25, ALT 21, alkaline phosphatase 66, total protein 8.3, and albumin is 4.1. ASSESSMENT AND PLAN: In summary, Mr. Franks is a 72-year-old elderly male with hypertension, cerebrovascular accident, end-stage renal disease, carcinoma of the tonsil, status post surgery chemotherapy and radiation as per the patient, was admitted with dysphagia and vomiting and regurgitation of the food and weight loss, status post percutaneous endoscopic gastrostomy tube placement. 1. End-stage renal disease. Continue hemodialysis 3 times a week Friday, Friday, and Friday. 2. Hypertension. Blood pressure stable. 3. Carcinoma of the tonsil with mass in soft tissue of the neck, possible compression. 4. Status post percutaneous endoscopic gastrostomy tube placement. We will start feeding as recommended by dietitian if there is no contraindication from the surgical standpoint to start percutaneous endoscopic gastrostomy feeding. The patient is eager to go home. We will follow with you. Thank you for allowing me to participate in your patient's care. Stable hemodialysis without any complication today. Akshat Pak MD MTDD
--- NOTE | 2017-08-26 10:34 | CP.PCM.PN ---
Subjective - Date & Time of Evaluation Date of Evaluation: 08/26/17 Time of Evaluation: 10:30 - Subjective Subjective: Gen Surgery: Dr Canales Pt S&e. NAEO. Now tolerating feeds. Denies any further n/v. Pain well controlled. Objective - Vital Signs/Intake and Output Vital Signs (last 24 hours): Temp Pulse Resp BP Pulse Ox 98.0 F 69 20 129/78 98 08/26/17 07:30 08/26/17 07:30 08/26/17 07:30 08/26/17 07:30 08/26/17 07:30 Intake and Output: 08/26/17 08/26/17 06:59 18:59 Intake Total 600 240 Balance 600 240 - Medications Medications: Current Medications Acetaminophen (Tylenol 325mg Tab) 650 mg PO Q6 PRN PRN Reason: Pain, moderate (4-7) Acetylcysteine (Acetylcysteine 20%) 4 ml INH RQ6 DAGMAR Last Admin: 08/26/17 08:26 Dose: Not Given Albuterol/Ipratropium (Duoneb 3 Mg/0.5 Mg (3 Ml) Ud) 3 ml INH RQ6 PRN PRN Reason: Cough and congestion Last Admin: 08/26/17 08:26 Dose: 3 ml Amlodipine Besylate (Norvasc) 5 mg GT DAILY DAGMAR Famotidine (Pepcid) 20 mg IVP DAILY DAGMAR Last Admin: 08/26/17 10:24 Dose: 20 mg Piperacillin Sod/Tazobactam Sod (Zosyn 2.25 Gm Iv Premix) 2.25 gm in 50 mls @ 100 mls/hr IVPB Q8H DAGMAR PRN Reason: Protocol Last Admin: 08/26/17 05:15 Dose: 100 mls/hr Methylprednisolone (Solu-Medrol) 40 mg IVP Q8 DAGMAR Last Admin: 08/26/17 05:20 Dose: 40 mg Vitamin A (Vitamin A & D Oint Ud Foilpak) 1 ea TOP BID PRN PRN Reason: Other - Labs Labs: 08/26/17 07:19 08/26/17 07:19 PT 11.5 SECONDS (9.7-12.2) 08/18/17 17:47 INR 1.0 08/18/17 17:47 APTT 28 SECONDS (21-34) 08/18/17 17:47 - Constitutional Appears: Non-toxic, No Acute Distress - ENT Exam ENT Exam: Mucous Membranes Moist - Respiratory Exam Respiratory Exam: absent: Accessory Muscle Use, Respiratory Distress - Cardiovascular Exam Cardiovascular Exam: REGULAR RHYTHM. absent: Tachycardia - GI/Abdominal Exam GI & Abdominal Exam: Soft. absent: Distended, Tenderness Additional comments: G-tube c/d/i - Neurological Exam Neurological Exam: Alert, Awake, Oriented x3 - Psychiatric Exam Psychiatric exam: Normal Affect Assessment and Plan - Assessment and Plan (Free Text) Assessment: 72M s/p gastrostomy tube Plan: pt tolerating feeds having BMs. no further surgical intervention d/w Dr Parker Casas, PGY3
--- NOTE | 2017-08-26 12:35 | CP.PCM.PN ---
Subjective - Date & Time of Evaluation Date of Evaluation: 08/26/17 Time of Evaluation: 12:34 - Subjective Subjective: pt is seen and examined, follow up consult is dictated #[id number] Objective - Vital Signs/Intake and Output Vital Signs (last 24 hours): Temp Pulse Resp BP Pulse Ox 98.0 F 69 20 129/78 98 08/26/17 07:30 08/26/17 07:30 08/26/17 07:30 08/26/17 07:30 08/26/17 07:30 Intake and Output: 08/26/17 08/26/17 06:59 18:59 Intake Total 600 240 Balance 600 240 - Medications Medications: Current Medications Acetaminophen (Tylenol 325mg Tab) 650 mg PO Q6 PRN PRN Reason: Pain, moderate (4-7) Last Admin: 08/26/17 10:34 Dose: 650 mg Acetylcysteine (Acetylcysteine 20%) 4 ml INH RQ6 DAGMAR Last Admin: 08/26/17 08:26 Dose: Not Given Albuterol/Ipratropium (Duoneb 3 Mg/0.5 Mg (3 Ml) Ud) 3 ml INH RQ6 PRN PRN Reason: Cough and congestion Last Admin: 08/26/17 08:26 Dose: 3 ml Amlodipine Besylate (Norvasc) 5 mg GT DAILY DAGMAR Last Admin: 08/26/17 10:34 Dose: 5 mg Famotidine (Pepcid) 20 mg IVP DAILY DAGMAR Last Admin: 08/26/17 10:24 Dose: 20 mg Piperacillin Sod/Tazobactam Sod (Zosyn 2.25 Gm Iv Premix) 2.25 gm in 50 mls @ 100 mls/hr IVPB Q8H DAGMAR PRN Reason: Protocol Last Admin: 08/26/17 05:15 Dose: 100 mls/hr Methylprednisolone (Solu-Medrol) 40 mg IVP Q8 DAGMAR Last Admin: 08/26/17 05:20 Dose: 40 mg Vitamin A (Vitamin A & D Oint Ud Foilpak) 1 ea TOP BID PRN PRN Reason: Other - Labs Labs: 08/26/17 07:19 08/26/17 07:19 PT 11.5 SECONDS (9.7-12.2) 08/18/17 17:47 INR 1.0 08/18/17 17:47 APTT 28 SECONDS (21-34) 08/18/17 17:47
--- NOTE | 2017-08-26 14:41 | RAD ---
PROCEDURE: Limited signal contrast upper GI with small bowel series. HISTORY: Rule out small bowel obstruction COMPARISON: CT chest, abdomen, and pelvis 08/18/2017 TECHNIQUE: Fluoroscopic evaluation of the stomach and small bowel was performed following administration of oral contrast via a gastrostomy tube. FINDINGS: Tax Technician view of the abdomen demonstrates multiple midline surgical bo. Gastrostomy tube noted left upper quadrant. Stomach: Approximately 200 cc of Gastrografin oral contrast was administered via the G-tube. Visualized stomach is grossly unremarkable. Small bowel: No evidence of bowel obstruction. Bowel gas pattern nonspecific. Total transit time was 2 hours. IMPRESSION: No evidence of small-bowel obstruction. Total transit time was 2 hours.
--- NOTE | 2017-08-26 15:56 | CP.PCM.PN ---
Subjective - Date & Time of Evaluation Date of Evaluation: 08/26/17 Time of Evaluation: 11:15 - Subjective Subjective: patient seen and examined shortness of breath and cough much improved Afebrile Objective - Vital Signs/Intake and Output Vital Signs (last 24 hours): Temp Pulse Resp BP Pulse Ox 98.0 F 87 20 129/79 98 08/26/17 07:30 08/26/17 10:35 08/26/17 07:30 08/26/17 10:35 08/26/17 07:30 Intake and Output: 08/26/17 08/26/17 06:59 18:59 Intake Total 600 240 Balance 600 240 - Medications Medications: Current Medications Acetaminophen (Tylenol 325mg Tab) 650 mg PO Q6 PRN PRN Reason: Pain, moderate (4-7) Last Admin: 08/26/17 10:34 Dose: 650 mg Acetylcysteine (Acetylcysteine 20%) 4 ml INH RQ6 [facility] Last Admin: 08/26/17 14:13 Dose: Not Given Albuterol/Ipratropium (Duoneb 3 Mg/0.5 Mg (3 Ml) Ud) 3 ml INH RQ6 PRN PRN Reason: Cough and congestion Last Admin: 08/26/17 08:26 Dose: 3 ml Amlodipine Besylate (Norvasc) 5 mg GT DAILY [facility] Last Admin: 08/26/17 10:34 Dose: 5 mg Famotidine (Pepcid) 20 mg IVP DAILY [facility] Last Admin: 08/26/17 10:24 Dose: 20 mg Piperacillin Sod/Tazobactam Sod (Zosyn 2.25 Gm Iv Premix) 2.25 gm in 50 mls @ 100 mls/hr IVPB Q8H [facility] PRN Reason: Protocol Last Admin: 08/26/17 12:30 Dose: Not Given Methylprednisolone (Solu-Medrol) 40 mg IVP Q8 [facility] Last Admin: 08/26/17 13:24 Dose: 40 mg Vitamin A (Vitamin A & D Oint Ud Foilpak) 1 ea TOP BID PRN PRN Reason: Other - Labs Labs: 08/26/17 07:19 08/26/17 07:19 PT 11.5 SECONDS (9.7-12.2) 08/18/17 17:47 INR 1.0 03/12/18 17:47 APTT 28 SECONDS (21-34) 08/18/17 17:47 - Head Exam Head Exam: ATRAUMATIC, NORMOCEPHALIC - ENT Exam ENT Exam: Mucous Membranes Moist - Neck Exam Neck Exam: Normal Inspection - Respiratory Exam Respiratory Exam: Rhonchi - Cardiovascular Exam Cardiovascular Exam: REGULAR RHYTHM - GI/Abdominal Exam GI & Abdominal Exam: Soft, Normal Bowel Sounds Assessment and Plan (1) Cough Assessment & Plan: Secondary to upper respiratory tract infection/bronchitis Cough much improved Taper steroids Continue antibiotics Continue nebulizer treatment Status: Acute (2) Cancer of neck Status: Acute (3) Dysphagia Status: Acute (4) ESRD needing dialysis Status: Acute
--- NOTE | 2017-08-26 19:19 | CARD ---
APPROVED REPORT EKG Measurement Heart [id number] <Conclusion> Sinus rhythm with premature atrial complexes Minimal voltage criteria for LVH, may be normal variant Septal infarct, age undetermined Abnormal ECG
[2017-08-26] MEDS ORDERED: Acetaminophen 650mg/20.3ml solution UD PEG PRN (19:45)
[2017-08-26] MEDS ORDERED: Acetaminophen 650mg/20.3ml solution UD PO PRN (19:45)
[2017-08-27] MEDS: Acetylcysteine 20% Inhal Soln (4ml) INH SCH (01:45)
[2017-08-27] MEDS: MethylPREDNISolone 40 mg Vial IVP SCH ×3 (05:40→22:14)
[2017-08-27 07:31] LABS: BASO % 0.1 % (0.0-2.0); HEMOGLOBIN 12.1 g/dL (12.0-18.0); LYMPH # 0.3 K/uL (1.0-4.3); LYMPH % 3.5 % (20.0-40.0); MEAN CELL VOLUME 92.5 fL (80.0-94.0); MEAN CORPUSCULAR HGB CONC 33.5 g/dL (33.0-37.0); MEAN PLATELET VOLUME 7.9 fL (7.2-11.7); MONO # 0.6 K/uL (0.0-0.8); NEUT % 90.4 % (50.0-75.0); PLATELET COUNT 279 K/uL (130-400); RBC 3.89 Mil/uL (4.40-5.90); RED CELL DISTRIBUTION WIDTH 15.8 % (11.5-14.5); WHITE BLOOD COUNT 9.9 K/uL (4.8-10.8)
--- NOTE | 2017-08-27 07:51 | CP.PCM.PN ---
Subjective - Date & Time of Evaluation Date of Evaluation: 08/27/17 Time of Evaluation: 07:45 - Subjective Subjective: Pt no complain; no CP, no SOB, (+) minimal cough, no vomiting Feels much stronger Objective - Vital Signs/Intake and Output Vital Signs (last 24 hours): Temp Pulse Resp BP Pulse Ox 98.3 F 65 18 129/72 96 08/26/17 23:00 08/26/17 23:00 08/26/17 23:00 08/26/17 23:00 08/26/17 23:00 Intake and Output: 08/27/17 08/27/17 06:59 18:59 Intake Total 290 Balance 290 - Medications Medications: Current Medications Acetaminophen (Tylenol 650mg/20.3ml Solution Ud) 650 mg PEG Q6 PRN PRN Reason: Pain, moderate (4-7) Last Admin: 08/26/17 19:43 Dose: 650 mg Acetylcysteine (Acetylcysteine 20%) 4 ml INH RQ6 [facility] Last Admin: 08/27/17 01:45 Dose: Not Given Albuterol/Ipratropium (Duoneb 3 Mg/0.5 Mg (3 Ml) Ud) 3 ml INH RQ6 PRN PRN Reason: Cough and congestion Last Admin: 08/26/17 08:26 Dose: 3 ml Amlodipine Besylate (Norvasc) 5 mg GT DAILY [facility] Last Admin: 08/26/17 10:34 Dose: 5 mg Famotidine (Pepcid) 20 mg IVP DAILY [facility] Last Admin: 08/26/17 10:24 Dose: 20 mg Methylprednisolone (Solu-Medrol) 40 mg IVP Q8 [facility] Last Admin: 08/27/17 05:40 Dose: 40 mg Vitamin A (Vitamin A & D Oint Ud Foilpak) 1 ea TOP BID PRN PRN Reason: Other - Labs Labs: 08/27/17 07:03 08/26/17 07:19 PT 11.5 SECONDS (9.7-12.2) 08/18/17 17:47 INR 1.0 08/18/17 17:47 APTT 28 SECONDS (21-34) 08/18/17 17:47 - Constitutional Appears: No Acute Distress - Eye Exam Eye Exam: Normal appearance - ENT Exam ENT Exam: Mucous Membranes Moist - Neck Exam Neck Exam: Full ROM. absent: Lymphadenopathy, Normal Inspection - Respiratory Exam Respiratory Exam: Decreased Breath Sounds. absent: Rales, Rhonchi, Wheezes - Cardiovascular Exam Cardiovascular Exam: REGULAR RHYTHM, +S1, +S2, Murmur. absent: Gallop, JVD - GI/Abdominal Exam GI & Abdominal Exam: Soft. absent: Tenderness, Hyperactive Bowel Sounds - Extremities Exam Extremities Exam: Full ROM, Normal Capillary Refill. absent: Calf Tenderness, Joint Swelling, Pedal Edema Assessment and Plan - Assessment and Plan (Free Text) Assessment: Throat cancer w/ dysphagia s/p Gastrostomy Conr mds/ rehab
--- NOTE | 2017-08-27 08:05 | PN ---
DATE: 08/26/2017 FOLLOWUP RENAL CONSULTATION LOCATION: The patient is located in room 557, Bed A. REQUESTED BY: Luis A Guthrie MD HISTORY OF PRESENT ILLNESS: Mr. Golden Thakkar is a 72 years old elderly male with a past medical history significant for longstanding hypertension, end-stage renal disease, CVA, CA of the tonsil, tonsil, status post surgery, radiation and chemotherapy, was admitted with chief complaints of dysphagia and vomiting and weight loss. The patient was found to have a necrotic soft tissue mass noted involving the right mucosal space and carotid sheath structures, mass effect upon the adjacent airway extending from the oropharynx superiorly to the level of the right true cord inferiorly. Circumferential narrowing and displacement of the right cervical internal carotid artery, marked narrowing of the right internal jugular vein. Subsequently, the patient underwent a PEG tube placement by Dr. Canales. The patient is feeling better, not in acute distress, started on PEG feeding with bolus feeding yesterday. The patient is tolerating without any regurgitation or any vomiting. The patient is complaining of slight nausea during gastric emptying study, during upper GI small bowel series to rule out small-bowel obstruction. The patient denies any chest pain or palpitation. No fever. No cough. No shortness of breath. PHYSICAL EXAMINATION: VITAL SIGNS: As follows, blood pressure 129/78, pulse 69, respirations 20, temperature 98, saturation 98%. Height 5 feet 11 inches and weight is 154 pounds. GENERAL: On physical exam, Mr. Golden Thakkar is a 72 years old elderly male, moderately built, moderately nourished with shrunken eyelids. HEENT: Pupils normal and reactive to light and accommodation. Conjunctivae pink. Sclerae anicteric. Tongue is moist. Trachea is midline. LUNGS: Symmetric on both sides. Bilateral breath sounds present. Clear on auscultation. CVS: [place] at the fifth intercostal space, midclavicular line. S1, S2 audible. No murmur or gallop. ABDOMEN: Normal in appearance, soft, tympanic. No guarding. No rigidity. No hepatosplenomegaly. Status post PEG tube placement. 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 Nonfocal neuro examination. Cranial nerves II through XII grossly intact. Sensory and motor system is within normal limits. EXTREMITIES: No cyanosis. No clubbing. No edema. LABORATORY DATA: His laboratory data include as follows, as of 08/26/2017, WBC 10.3, hemoglobin 11.3, hematocrit is 33.4, platelets 258. Sodium 141, potassium 4.5, chloride 95, CO2 of 28, BUN 50, creatinine 8.8, glucose 131, calcium 9.2. Total bili 0.4, AST 28, ALT 18, alkaline phosphatase 57, total protein 7.7, albumin is 3.7. IMPRESSION: In summary, Mr. Golden Moy is a 72 years old elderly male with a history of hypertension, CVA, end-stage renal disease, cancer of the tonsil, status post chemo radiation who was admitted with difficulty to swallow, regurgitation of the food and weight loss, status post PEG tube placement by Dr. Canales, started on PEG feeding yesterday. The patient went for GI series with small-bowel series to rule out obstruction, small bowel series is negative for small-bowel obstruction. 1. End-stage renal disease. Continue hemodialysis three times a week; Friday, Friday, and Friday. 2. Hypertension. Blood pressure is stable. Continue his current medications including acetylcysteine inhaler and DuoNeb inhaler and Norvasc 5 mg by gt daily, Pepcid 20 mg IV daily, Solu-Medrol 40 mg IV q.8 hours, Tylenol, vitamin A and D ointment. Continue PEG feeding as recommended by dietitian. We will follow with you. Thank you for allowing me to participate in your patient's care. Akshat Pak MD [facility]
[2017-08-27 08:11] LABS: ALBUMIN 3.9 g/dL (3.5-5.0); CALCIUM 9.7 mg/dl (8.6-10.4)
[2017-08-27 08:35] LABS: ANISOCYTOSIS SLIGHT; LYMPHOCYTE 3 % (20-40); MONOCYTE 5 % (0-10); NEUTROPHIL 92 % (50-75); PLATELET ESTIMATE NORMAL (NORMAL); TOTAL CELLS COUNTED 100
--- NOTE | 2017-08-27 10:13 | CP.PCM.PN ---
Subjective - Date & Time of Evaluation Date of Evaluation: 08/27/17 Time of Evaluation: 10:12 - Subjective Subjective: pt is seen and examined, follow up consult is dictated #[id number] seen in hd , uf goal decreased to 0.5 lit Objective - Vital Signs/Intake and Output Vital Signs (last 24 hours): Temp Pulse Resp BP Pulse Ox 98.4 F 69 20 135/88 98 08/27/17 07:30 08/27/17 07:30 08/27/17 07:30 08/27/17 07:30 08/27/17 07:30 Intake and Output: 08/27/17 08/27/17 06:59 18:59 Intake Total 290 Balance 290 - Medications Medications: Current Medications Acetaminophen (Tylenol 650mg/20.3ml Solution Ud) 650 mg PEG Q6 PRN PRN Reason: Pain, moderate (4-7) Last Admin: 08/26/17 19:43 Dose: 650 mg Acetylcysteine (Acetylcysteine 20%) 4 ml INH RQ6 [facility] Last Admin: 08/27/17 01:45 Dose: Not Given Albuterol/Ipratropium (Duoneb 3 Mg/0.5 Mg (3 Ml) Ud) 3 ml INH RQ6 PRN PRN Reason: Cough and congestion Last Admin: 08/26/17 08:26 Dose: 3 ml Amlodipine Besylate (Norvasc) 5 mg GT DAILY [facility] Last Admin: 08/26/17 10:34 Dose: 5 mg Famotidine (Pepcid) 20 mg IVP DAILY [facility] Last Admin: 08/26/17 10:24 Dose: 20 mg Methylprednisolone (Solu-Medrol) 40 mg IVP Q8 [facility] Last Admin: 08/27/17 05:40 Dose: 40 mg Vitamin A (Vitamin A & D Oint Ud Foilpak) 1 ea TOP BID PRN PRN Reason: Other - Labs Labs: 08/27/17 07:03 08/27/17 07:03 PT 11.5 SECONDS (9.7-12.2) 08/18/17 17:47 INR 1.0 08/18/17 17:47 APTT 28 SECONDS (21-34) 08/18/17 17:47
--- NOTE | 2017-08-27 15:24 | CP.PCM.PN ---
Subjective - Date & Time of Evaluation Date of Evaluation: 08/27/17 Time of Evaluation: 14:00 - Subjective Subjective: patient seen and examined Status post hemodialysis cough and shortness of breath much improved Afebrile Objective - Vital Signs/Intake and Output Vital Signs (last 24 hours): Temp Pulse Resp BP Pulse Ox 96.9 F L 67 16 121/81 98 08/27/17 12:45 08/27/17 12:45 08/27/17 10:00 08/27/17 12:45 08/27/17 10:00 Intake and Output: 08/27/17 08/27/17 06:59 18:59 Intake Total 290 Balance 290 - Medications Medications: Current Medications Acetaminophen (Tylenol 650mg/20.3ml Solution Ud) 650 mg PEG Q6 PRN PRN Reason: Pain, moderate (4-7) Last Admin: 08/26/17 19:43 Dose: 650 mg Acetylcysteine (Acetylcysteine 20%) 4 ml INH RQ6 [facility] Last Admin: 08/27/17 01:45 Dose: Not Given Albuterol/Ipratropium (Duoneb 3 Mg/0.5 Mg (3 Ml) Ud) 3 ml INH RQ6 PRN PRN Reason: Cough and congestion Last Admin: 08/26/17 08:26 Dose: 3 ml Amlodipine Besylate (Norvasc) 5 mg GT DAILY [facility] Last Admin: 08/26/17 10:34 Dose: 5 mg Famotidine (Pepcid) 20 mg IVP DAILY [facility] Last Admin: 08/26/17 10:24 Dose: 20 mg Methylprednisolone (Solu-Medrol) 40 mg IVP Q8 [facility] Last Admin: 08/27/17 05:40 Dose: 40 mg Vitamin A (Vitamin A & D Oint Ud Foilpak) 1 ea TOP BID PRN PRN Reason: Other - Labs Labs: 08/27/17 07:03 08/27/17 07:03 PT 11.5 SECONDS (9.7-12.2) 08/18/17 17:47 INR 1.0 08/18/17 17:47 APTT 28 SECONDS (21-34) 08/18/17 17:47 - Head Exam Head Exam: ATRAUMATIC, NORMOCEPHALIC - ENT Exam ENT Exam: Mucous Membranes Moist - Neck Exam Neck Exam: Normal Inspection - Respiratory Exam Respiratory Exam: Clear to Ausculation Bilateral - Cardiovascular Exam Cardiovascular Exam: REGULAR RHYTHM Assessment and Plan (1) Cough Assessment & Plan: Continue nebulizer treatment Taper IV steroids Status: Acute (2) Cancer of neck Status: Acute (3) Dysphagia Status: Acute (4) ESRD needing dialysis Status: Acute
[2017-08-27 16:11] VITALS: RESP 20
--- NOTE | 2017-08-27 19:06 | CARD ---
APPROVED REPORT EKG Measurement Heart [id number] QT0T0 QTc0 <Conclusion> No QRS complexes found, no ECG analysis possible
[2017-08-28] MEDS: Acetylcysteine 20% Inhal Soln (4ml) INH SCH (02:44)
--- NOTE | 2017-08-28 07:52 | PN ---
DATE: 08/27/2017 FOLLOWUP RENAL CONSULTATION LOCATION: The patient is located in room 557, bed A. REQUESTED BY: Dr. Luis A Guthrie. HISTORY OF PRESENT ILLNESS: Mr. Golden Thakkar is a 72 years old elderly male with a past medical history significant for longstanding hypertension, CVA, ESRD, CA of the tonsil, status post surgery, radiation chemotherapy who was admitted with difficulty to swallow, regurgitation of food, and weight loss, and status post gastrostomy tube placement by the Surgery. The patient is tolerating G-tube feeding, not in distress, seen in dialysis. Ultrafiltration goal is about to 500 mL. No chest pain, no palpitation. No fever. No cough. No abdominal pain. No nausea, vomiting, diarrhea. PHYSICAL EXAMINATION: VITAL SIGNS: As follows, blood pressure this morning 136/85, pulse 67, respirations 20, temperature 96.9. Height 5 feet 11 inches, weight is 154 pounds. GENERAL: On physical exam, Mr. Golden Moy is 72 years old elderly male, moderately built, moderate nourished, not in distress. HEENT: Pupils normal and reactive to light and accommodation. Conjunctivae pink. Sclerae anicteric. Tongue is moist. Trachea is midline. LUNGS: Symmetric on both sides. Bilateral breath sounds present. Clear to auscultation. CVS: [place] at the fifth intercostal space, midclavicular line. S1, S2 audible. No murmur or gallop. ABDOMEN: Normal in appearance, soft, tympanic. No guarding. No rigidity. No hepatosplenomegaly, status post gastrostomy tube. 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 Nonfocal neuro examination. Cranial nerves II through XII grossly intact. Sensory and motor system is within normal limits. EXTREMITIES: No cyanosis, no clubbing, no edema. MEDICATIONS: His current medications include as follows: Acetylcysteine 4 mL every 6 hours, DuoNeb inhaler, amlodipine 5 mg by G-tube daily, Pepcid 20 mg IV piggyback daily, Solu-Medrol 40 mg IV every 12 hours, Tylenol, vitamin A and D ointment topical. LABORATORY DATA: His other laboratory data as of 08/27/2017, WBC 9.9, hemoglobin 12.1, hematocrit is 36, platelets 279. Sodium 141, potassium 4.4, chloride 94, CO2 of 28, BUN 77, creatinine 10.7, glucose 125, calcium 9.7. Total bili 0.5, AST 42, ALT 29, alkaline phosphatase 75, total protein 7.9, albumin is 3.9. IMPRESSION: In summary, Mr. Golden Thakkar is 72 years old elderly male, moderately built, moderately nourished with hypertension, cerebrovascular accident, end-stage renal disease, carcinoma of the tonsil, status post surgery, radiation and chemo, admitted with difficulty to swallow and regurgitation of food while swallowing and weight loss. 1. End-stage renal disease. Continue hemodialysis three times a week; Friday, Friday, and Friday. 2. Hypertension. Blood pressure is stable. Continue Norvasc 5 mg daily. 3. Weight loss secondary to decreased p.o. intake and secondary to malignancy. 4. Status post G-tube placement. Continue Nepro as per dietary recommendations and also free water about 200 mL every 8 hours by gastrostomy tube. Thank you for allowing me to participate in your patient's care. Akshat Pak MD
[2017-08-28 08:50] LABS: BASO % 0.4 % (0.0-2.0); HEMOGLOBIN 13.4 g/dL (12.0-18.0); LYMPH # 0.4 K/uL (1.0-4.3); LYMPH % 3.3 % (20.0-40.0); MEAN CORPUSCULAR HEMOGLOBIN 30.8 pg (27.0-31.0); MEAN CORPUSCULAR HGB CONC 33.1 g/dL (33.0-37.0); MEAN PLATELET VOLUME 7.8 fL (7.2-11.7); MONO % 8.9 % (0.0-10.0); NEUT # 9.5 K/uL (1.8-7.0); NEUT % 87.4 % (50.0-75.0); PLATELET COUNT 258 K/uL (130-400); RBC 4.37 Mil/uL (4.40-5.90); RED CELL DISTRIBUTION WIDTH 15.9 % (11.5-14.5); WHITE BLOOD COUNT 10.9 K/uL (4.8-10.8)
[2017-08-28 09:07] LABS: ALBUMIN 4.1 g/dL (3.5-5.0); CALCIUM 9.3 mg/dl (8.6-10.4)
[2017-08-28 09:12] LABS: LYMPHOCYTE 3 % (20-40); MONOCYTE 9 % (0-10); NEUTROPHIL 88 % (50-75); TOTAL CELLS COUNTED 100
[2017-08-28 09:14] LABS: ANISOCYTOSIS SLIGHT; PLATELET ESTIMATE NORMAL (NORMAL)
[2017-08-28 09:18] LABS: TARGET CELLS SLIGHT
--- NOTE | 2017-08-28 10:07 | CP.PCM.PN ---
Subjective - Date & Time of Evaluation Date of Evaluation: 08/28/17 Time of Evaluation: 10:04 - Subjective Subjective: PATIENT IS AAOX3; DENIES CHEST PAIN OR SOB NO SIGN OF DISTRESS NOTED HX OF THROAT CANCER AND DYSPHAGIA S/P GASTROSTOMY SWALLOW EVAL WAS DONE AND PATIENT CANNOT TOLERATED PO DIET SINCE PATIENT HAS DIFFICULTY SWALLOWING DUE TO NECK CANCER THEREFORE HE CANNOT TOLERATED AN ORAL DIET AND RELIES SOLELY ON THE ENTERAL FEEDING VIA BOLUS. PER DIETITIAN RECOMMENDATION PATIENT WILL NEED 237 ML X 6 CANS PER DAY HER PRIMARY SOURCE OF NUTRITION Objective - Vital Signs/Intake and Output Vital Signs (last 24 hours): Temp Pulse Resp BP Pulse Ox 97.5 F L 85 20 130/70 96 08/28/17 07:35 08/28/17 07:35 08/28/17 07:35 08/28/17 07:35 08/28/17 07:35 Intake and Output: 08/28/17 08/28/17 06:59 18:59 Intake Total 610 Balance 610 - Medications Medications: Current Medications Acetaminophen (Tylenol 650mg/20.3ml Solution Ud) 650 mg PEG Q6 PRN PRN Reason: Pain, moderate (4-7) Last Admin: 08/26/17 19:43 Dose: 650 mg Acetylcysteine (Acetylcysteine 20%) 4 ml INH RQ6 [facility] Last Admin: 08/28/17 02:44 Dose: Not Given Albuterol/Ipratropium (Duoneb 3 Mg/0.5 Mg (3 Ml) Ud) 3 ml INH RQ6 PRN PRN Reason: Cough and congestion Last Admin: 08/26/17 08:26 Dose: 3 ml Amlodipine Besylate (Norvasc) 5 mg GT DAILY [facility] Last Admin: 08/27/17 13:54 Dose: 5 mg Famotidine (Pepcid) 20 mg IVP DAILY [facility] Last Admin: 08/27/17 13:54 Dose: 20 mg Methylprednisolone (Solu-Medrol) 40 mg IVP Q12 [facility] Last Admin: 08/27/17 22:14 Dose: 40 mg Vitamin A (Vitamin A & D Oint Ud Foilpak) 1 ea TOP BID PRN PRN Reason: Other - Labs Labs: 08/28/17 08:39 08/28/17 08:39 PT 11.5 SECONDS (9.7-12.2) 08/18/17 17:47 INR 1.0 08/18/17 17:47 APTT 28 SECONDS (21-34) 08/18/17 17:47
[2017-08-28] MEDS: MethylPREDNISolone 40 mg Vial IVP SCH (10:48)
[2017-08-28 16:08] VITALS: BP 122/79; PULSE 84; TEMP 97.4; O2SAT 97
--- NOTE | 2017-08-28 16:34 | CP.PCM.PN ---
Subjective - Date & Time of Evaluation Date of Evaluation: 08/28/17 Time of Evaluation: 10:00 - Subjective Subjective: Patient seen and examined at bedside today Status post hemodialysis yesterday Cough and shortness of breath much improved Afebrile Assessment/Plan: 1. Cough -Most recent chest XR on 08/19: Mild bibasilar atelectasis. Biapical pleural thickening. -Continue nebulizer treatment -Taper IV steroids -Stable respiratory status, will sign off at this time 2. ESRD -Continue hemodialysis to optimize fluid status -Managment per nephrology and primary team Objective - Vital Signs/Intake and Output Vital Signs (last 24 hours): Temp Pulse Resp BP Pulse Ox 97.4 F L 84 20 122/79 97 08/28/17 16:07 08/28/17 16:07 08/28/17 16:07 08/28/17 16:07 08/28/17 16:07 Intake and Output: 08/28/17 08/28/17 06:59 18:59 Intake Total 610 Balance 610 - Medications Medications: Current Medications Acetaminophen (Tylenol 650mg/20.3ml Solution Ud) 650 mg PEG Q6 PRN PRN Reason: Pain, moderate (4-7) Last Admin: 08/26/17 19:43 Dose: 650 mg Acetylcysteine (Acetylcysteine 20%) 4 ml INH RQ6 [facility] Last Admin: 08/28/17 02:44 Dose: Not Given Amlodipine Besylate (Norvasc) 5 mg GT DAILY [facility] Last Admin: 08/28/17 10:48 Dose: 5 mg Famotidine (Pepcid) 20 mg IVP DAILY [facility] Last Admin: 08/28/17 10:48 Dose: 20 mg Methylprednisolone (Solu-Medrol) 40 mg IVP Q12 [facility] Last Admin: 08/28/17 10:48 Dose: 40 mg Vitamin A (Vitamin A & D Oint Ud Foilpak) 1 ea TOP BID PRN PRN Reason: Other - Labs Labs: 08/28/17 08:39 08/28/17 08:39 PT 11.5 SECONDS (9.7-12.2) 08/18/17 17:47 INR 1.0 08/18/17 17:47 APTT 28 SECONDS (21-34) 08/18/17 17:47 Assessment and Plan (1) Cough Status: Acute (2) Cancer of neck Status: Acute (3) Dysphagia Status: Acute (4) ESRD needing dialysis Status: Acute
--- NOTE | 2017-08-28 16:38 | CP.PCM.PN ---
Subjective - Date & Time of Evaluation Date of Evaluation: 08/28/17 Time of Evaluation: 16:37 - Subjective Subjective: PATIENT WAS ADMITTED FOR DYSPHAGIA AND ESRD AAOX3; DENIES CHEST PAIN/ SOB / NAUSEA OR VOMITING NO SIGN OF DISTRESS NOTED Objective - Vital Signs/Intake and Output Vital Signs (last 24 hours): Temp Pulse Resp BP Pulse Ox 97.4 F L 84 20 122/79 97 08/28/17 16:07 08/28/17 16:07 08/28/17 16:07 08/28/17 16:07 08/28/17 16:07 Intake and Output: 08/28/17 08/28/17 06:59 18:59 Intake Total 610 Balance 610 - Medications Medications: Current Medications Acetaminophen (Tylenol 650mg/20.3ml Solution Ud) 650 mg PEG Q6 PRN PRN Reason: Pain, moderate (4-7) Last Admin: 08/26/17 19:43 Dose: 650 mg Acetylcysteine (Acetylcysteine 20%) 4 ml INH RQ6 [facility] Last Admin: 08/28/17 02:44 Dose: Not Given Amlodipine Besylate (Norvasc) 5 mg GT DAILY [facility] Last Admin: 08/28/17 10:48 Dose: 5 mg Famotidine (Pepcid) 20 mg IVP DAILY [facility] Last Admin: 08/28/17 10:48 Dose: 20 mg Methylprednisolone (Solu-Medrol) 40 mg IVP Q12 [facility] Last Admin: 08/28/17 10:48 Dose: 40 mg Vitamin A (Vitamin A & D Oint Ud Foilpak) 1 ea TOP BID PRN PRN Reason: Other - Labs Labs: 08/28/17 08:39 08/28/17 08:39 PT 11.5 SECONDS (9.7-12.2) 08/18/17 17:47 INR 1.0 08/18/17 17:47 APTT 28 SECONDS (21-34) 08/18/17 17:47 Assessment and Plan - Assessment and Plan (Free Text) Assessment: PATIENT SEEN AND EXAMINED AT THE BEDSIDE LUNG SOUND CLEAR POSITIVE BOWEL SOUND ALL QUADRANT PEG TUBE IN PLACE AND SECURE PATIENT AND FAMILY MEMBER WERE ABLE TO RETURN DEMONSTRATION OF TUBE FEEDING DISCUSS WITH DR MENDES WHO AGREE AND CLEAR PATIENT FOR DC FOLLOW UP WITH DR MENDES ST HIS OFFICE 1-2 WEEKS ---CALL FOR APPOINTMENT FOLLOW UP WITH DR POPE AT HIS OFFICE ----CALL FOR APPOINTMENT FOLLOW UP WITH DR WILSON AT HIS OFFICE ---CALL FOR APPOINTMENT CONTINUE ALL YOUR HOME MEDICATION ORDER CONTINUE DIALYSIS SCHEDULE ACTIVITY TOLERATED PEG TUBE FEEDING FOLLOW 2 CANS IN THE MORNING 2 CANS IN THE AFTERNOON 2 CANS ORUND DINNER TIME FOR A TOTAL OF 6 CANS OF NUTRITION PER DAY PER THE DIETITIAN RECOMMENDATION FLUSH WITH WATER AFTER EACH FEEDING AND MEDICATION ADMINISTRATION CALL DR MENDES OR GO TO THE EMERGENCY ROOM IF SYMPTOMS RETURN OR WORSENING DISCUSS WITH PATIENT AND PATIENT'S SISTER WHO AGREE AND VERBALIZED UNDERSTANDING
--- NOTE | 2017-08-28 16:54 | CP.PCM.PN ---
Subjective - Date & Time of Evaluation Date of Evaluation: 08/28/17 Time of Evaluation: 16:53 - Subjective Subjective: pt is seen and examined, follow up consult is dictated #[id number] d/c home today as per rn Objective - Vital Signs/Intake and Output Vital Signs (last 24 hours): Temp Pulse Resp BP Pulse Ox 97.4 F L 84 20 122/79 97 08/28/17 16:07 08/28/17 16:07 08/28/17 16:07 08/28/17 16:07 08/28/17 16:07 Intake and Output: 08/28/17 08/28/17 06:59 18:59 Intake Total 610 Balance 610 - Medications Medications: Current Medications Acetaminophen (Tylenol 650mg/20.3ml Solution Ud) 650 mg PEG Q6 PRN PRN Reason: Pain, moderate (4-7) Last Admin: 08/26/17 19:43 Dose: 650 mg Acetylcysteine (Acetylcysteine 20%) 4 ml INH RQ6 [facility] Last Admin: 08/28/17 02:44 Dose: Not Given Amlodipine Besylate (Norvasc) 5 mg GT DAILY [facility] Last Admin: 08/28/17 10:48 Dose: 5 mg Famotidine (Pepcid) 20 mg IVP DAILY [facility] Last Admin: 08/28/17 10:48 Dose: 20 mg Methylprednisolone (Solu-Medrol) 40 mg IVP Q12 [facility] Last Admin: 08/28/17 10:48 Dose: 40 mg Vitamin A (Vitamin A & D Oint Ud Foilpak) 1 ea TOP BID PRN PRN Reason: Other - Labs Labs: 08/28/17 08:39 08/28/17 08:39 PT 11.5 SECONDS (9.7-12.2) 08/18/17 17:47 INR 1.0 08/18/17 17:47 APTT 28 SECONDS (21-34) 08/18/17 17:47
--- NOTE | 2017-08-29 10:17 | PN ---
DATE: 08/28/2017. FOLLOWUP RENAL CONSULTATION LOCATION: Room 557, bed A. REQUESTED BY: Dr. Luis A Guthrie. REASON FOR RENAL FOLLOWUP: End-stage renal disease continuation with hemodialysis. HISTORY OF PRESENT ILLNESS: Mr. 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 The patient underwent gastrostomy tube placement by surgeon, Dr. Mauricio Canales and the patient was initially n.p.o. subsequently started on gastrostomy tube feeding. The patient is tolerating feeding without any vomiting. Denies any chest pain or palpitation. Denies any fever. Denies any cough. PHYSICAL EXAMINATION: VITAL SIGNS: As follows; blood pressure 122/79, pulse 84, respiration 20, temperature 97.4, saturation 97%. Height 5 feet 11 inches and weight is 154 pounds. GENERAL: Mr. Golden Moy is 72 years old elderly male, moderately built, moderately nourished, not in acute distress. HEENT: Pupils normal, reactive to light and accommodation. Conjunctivae pink. Sclerae anicteric. Tongue is moist and trachea is midline. LUNGS: Symmetric on both sides. Bilateral breath sounds present. Clear to auscultation. CVS: [place] at the fifth intercostal space, midclavicular line. S1 and S2 audible. No murmur or gallop. ABDOMEN: Normal in appearance. Soft, tympanic. No guarding, no rigidity. No hepatosplenomegaly. NOZZLEMAN: The patient is alert, awake, oriented x3. Nonfocal neuro examination. Ambulates with cane. EXTREMITIES: No cyanosis, no clubbing, no edema. CURRENT MEDICATIONS: Include as follows; Nephro-John 1 tablet daily, aspirin 81 mg daily, Faxon-3 1 tablet daily, Proscar 5 mg daily, vitamin D 1000 units daily, Renagel 800 mg daily and amlodipine 5 mg daily. LABORATORY DATA: As of 08/28/2017; WBC 10.9, hemoglobin 13.4, hematocrit is 40.6, platelets 258. Sodium 139, potassium 5.3, chloride 93, CO2 29, BUN 75, creatinine 7.8, glucose 99, calcium 9.3, total bili 0.9, AST 47, ALT 27, alkaline phosphatase 62, total protein 8.3, albumin is 4.1. ASSESSMENT: In summary, Mr. Golden Moy is a 72 years old elderly male with hypertension, cerebrovascular accident, end-stage renal disease, cancer of the tonsil with dysphagia and regurgitation of food and vomiting and weight loss. 1. End-stage renal disease. Continue hemodialysis three times a week Friday, Friday, Friday. 2. Mild hyperkalemia. Advise to watch the diet and the patient is scheduled for hemodialysis in a.m. 3. Hypertension. Blood pressure is stable. Continue amlodipine by G-tube. PLAN: We will change Renvela tablets to Renvela powder by PEG tube 800 mg daily, continue Nephro-John 1 tablet daily by gastrostomy tube. We will follow with you. The patient is being discharged this evening. Thank you for allowing me to participate in your patient's care. Akshat Pak MD
== END 2017-08-28 18:03 | disposition home or self-care (01) | DRG 823 ==
LOC: C.ER 16:06 → C.5S 21:03
PROVIDERS: ADMIT Internal Medicine; ATTEND Internal Medicine
PROC: 0DH60UZ Insertion of Feeding Device into Stomach, Open Approach (ICD-10-PCS; principal; 2017-08-21 10:15)
PROC: 3E0G76Z Introduction of Nutritional Substance into Upper GI, Via Natural or Artificial Opening (ICD-10-PCS; 2017-08-22)
PROC: 5A1D70Z Performance of Urinary Filtration, Intermittent, Less than 6 Hours Per Day (ICD-10-PCS; 2017-08-25)
DX: C77.0 Secondary and unspecified malignant neoplasm of lymph nodes of head, face and neck (principal); N18.6 End stage renal disease; E46 Unspecified protein-calorie malnutrition; I12.0 Hypertensive chronic kidney disease with stage 5 chronic kidney disease or end stage renal disease; I71.2 Thoracic aortic aneurysm, without rupture; J98.11 Atelectasis; C09.9 Malignant neoplasm of tonsil, unspecified; E78.00 Pure hypercholesterolemia, unspecified; J06.9 Acute upper respiratory infection, unspecified; F41.9 Anxiety disorder, unspecified; F32.9 Major depressive disorder, single episode, unspecified; Z87.891 Personal history of nicotine dependence; R00.1 Bradycardia, unspecified